=== PATIENT | female | born 1950 | race Caucasian/White ===

== ENCOUNTER 2021-05-21 17:58 | Inpatient (IN) | payer OTHER, SELFPAY ==
--- NOTE | ~2021-05-21 | XR_ITS ---
EXAMINATION: XR chest 1V portable INDICATION: Pneumonia and shortness of breath TECHNIQUE: Portable AP chest at 1448 hours COMPARISON: 05/26/2021 FINDINGS: Cardiomegaly is noted. There is mild diffuse interstitial pattern. No pleural effusion or p neumothorax is identified. There are minimal left basilar airspace opacities. IMPRESSION: 1. Cardiomegaly with mild pulmonary edema. 2. Minimal left basilar airspace opacity, consistent with atelectasis versus pneumonia. Reviewed, dictated and finalized at location F. FABRIC KNITTER IMPRESSION: 1. Cardiomegaly with mild pulmonary edema. 2. Minimal left basilar airspace opacity, consistent with atelectasis versus pn eumonia.
--- NOTE | ~2021-05-21 | CT_ITS ---
EXAMINATION: CT diagnostic chest wo con EXAM DATE: 05/24/2021 10:59 INDICATION: Pneumonia. Cough and shortness of breath. History COPD. TECHNIQUE: Spiral CT of the chest without contrast. Axial, coronal and sagittal images of the chest were reviewed. Coronal maximum intensity pixel images of chest reviewed. The dose-length product ( DLP) for this examination was 892.52 mGy-cm. The exposure was tailored according to patient size (au to mA exposure control), and iterative reconstruction (ASIR) was used as additional dose reduction te chnique. There is no prior study for comparison. FINDINGS: There is moderate emphysema. There is respiratory motion. Basilar subsegmental atelectasis . There is an aberrant right subclavian artery, a congenital variant. There are no pleural or perica rdial effusions. Tracheobronchial tree is patent. There is no mediastinal, hilar or axillary lymp hadenopathy. There is no pneumothorax. Mild cardiomegaly. Lipomatous hypertrophy of the interatri al septum. There is mild coronary arterial calcification, arterial sclerosis. Abdomen is unremarkabl e. There is mild thoracic spondylosis without osteoblastic or osteolytic lesions identified. There is severe bilateral glenohumeral primary osteoarthritis. IMPRESSION: 1. Bibasilar subsegmental atelectasis. 2. Mild cardiomegaly. Lipomatous hypertrophy interatrial septum. 3. Moderate emphysema. Reviewed, dictated and finalized at location . CULTURAL COMMODITIES GRADER
--- NOTE | ~2021-05-21 | US_ITS ---
EXAMINATION: US retroperitoneal comp EXAM DATE: 05/22/2021 11:18 INDICATION: Renal failure. TECHNIQUE: Multiple grayscale and Doppler images of the kidneys were obtained (by a technologist who performed the scan) and subsequently reviewed. There is no prior study for comparison. FINDINGS: Study limited by patient body habitus. There is bilateral renal cortical thinning, atrophy. Right kidney: There is normal contour and echogenicity. It measures 8.8 x 4.7 x 4.7 centimeters. Th ere are no focal renal lesions identified. There is no hydronephrosis. Left kidney: There is normal contour and echogenicity. It measures 9.2 x 3.4 x 4.7 centimeters. The re are no focal renal lesions identified. There is no hydronephrosis. Bladder was nondistended but unremarkable. Incidental hepatic steatosis. IMPRESSION: 1. No hydronephrosis. 2. Bilateral renal cortical thinning. 3. Hepatic steatosis. Reviewed, dictated and finalized at location G. NGED INSTRUMENT TUNER
--- NOTE | ~2021-05-21 | XR_ITS ---
EXAMINATION: XR chest 1V portable DATE: 05/26/2021 15:21 INDICATION: Pneumonia TECHNIQUE: frontal view of the chest was obtained. COMPARISON: Chest radiograph dated 05/21/2021 FINDINGS: Pulmonary vascular congestion without eunice pulmonary edema. Mild bibasilar opacities and favor atele ctasis over pneumonia. No pleural effusion or pneumothorax. Mild cardiomegaly with prominent left par acardial fat pad which partially obscures the left heart border. Advanced osteoarthritis at the bilat eral glenohumeral joints. IMPRESSION: 1. Cardiomegaly with pulmonary vascular congestion but without eunice pulmonary edema. 2. Mild bibasilar opacities and favor atelectasis over pneumonia. Reviewed, dictated and finalized at location A. L GRINDER
--- NOTE | ~2021-05-21 | XR_ITS ---
EXAMINATION: XR chest 1V portable INDICATION: Increased urination TECHNIQUE: Portable AP chest at 2122 hours COMPARISON: None available FINDINGS: There are minimal airspace opacities of the lung bases. No pleural effusion or pneumothorax is identified. Cardiomegaly is noted. There is advanced osteoarthritis of the glenohumeral joints. IMPRESSION: 1. Minimal bibasilar airspace opacity, consistent with atelectasis versus pneumonia. Reviewed, dictated and finalized at location F. UTIVE VP IMPRESSION: 1. Minimal bibasilar airspace opacity, consistent with atelectasis versus pneum onia.
--- NOTE | ~2021-05-21 | MR_ITS ---
EXAMINATION: MR cervical spine wo con EXAM DATE: 05/25/2021 12:27 INDICATION: Unable to raise arms, right greater than left . TECHNIQUE: Multi-sequential, multiplanar MR images of the cervical spine were obtained without contra st. Axial T2, axial T2 MERGE sequence. Sagittal T1, T2, T2 fat saturation images also obtained. Cor relation is made to CT earlier same date. FINDINGS: Study is limited due to patient motion. There is moderate reversal of normal cervical lord osis. There is severe disc disease C3-T1. Cervicomedullary junction is normal in appearance. There is mild to moderate moderate central canal stenosis posterior to the C5 vertebral body, central canal n arrowed to about 6 mm in mid sagittal AP dimension, and a narrowed to about 5-6 mm at the C5-6 level. These are the most narrowed levels. There is no cord edema identified, no evidence of acute cord com pression. Level by level evaluation: Significantly limited from patient motion. Please refer to the CT cervical spine report same date which is suspected to be more accurate with regard to the arthropathy and osiel ral foraminal stenosis. There is a mild to moderate disc bulge at C7-T1 causing mild central canal st enosis, less than at the mid cervical region reported above. IMPRESSION: 1. Moderate mid cervical central canal stenosis, without cord signal change, no acute cord compressi on suspected. 2. Severe cervical spondylosis; please correlate with CT cervical spine report same date. Reviewed, dictated and finalized at location G. ORK MGR IMPRESSION: 1. Moderate mid cervical central canal stenosis, without cord signal change, n o acute cord compression suspected. 2. Severe cervical spondylosis; please correlate with CT cervical spine report same date.
--- NOTE | ~2021-05-21 | CT_ITS ---
EXAMINATION: CT brain wo con, CT cervical spine wo con EXAM DATE: 05/25/2021 09:33 (accession [id number]), 05/25/2021 09:34 (accession [id number]) INDICATION: LT arm weakness . TECHNIQUE: Spiral CT of the head was performed without contrast. Axial, coronal and sagittal images were reviewed. Spiral CT of the cervical spine was performed without contrast. Axial images were rev iewed. Coronal and sagittal reformatted images were also reviewed. The dose-length product (DLP) fo r this examination was 983.67 mGy-cm. The exposure was tailored according to patient size, and itera tive reconstruction (ASIR) was used as additional dose reduction technique. There is no prior study for comparison. FINDINGS: HEAD CT: Old right basal ganglia lacunar infarctions. There is no acute intraparenchymal hemorrhage. No evidence of intraparenchymal brain mass lesion. No evidence of acute infarction. There is modera te periventricular and subcortical hypodensity, nonspecific but probably related to small vessel isch emic disease. There is mild prominence of the sulci and ventricles related to cerebral atrophy. There is no mass effect or midline shift. There is no obstructive hydrocephalus suspected. There are no extra-axial collections. There are no acute calvarial fractures. Left prosthetic globe, right-s ided cataract surgery. Soft tissue is unremarkable. The visualized sinuses and mastoid air cells are well aerated. CERVICAL CT: There is severe disc disease C4-T1, moderate to severe at C3-4. There is moderate revers al of the normal cervical lordosis which may be degenerative, positional or spasm. There is 2 mm ante rolisthesis C3 on C4. Level by level evaluation: C2-C3: Disc does not extend beyond the endplate margin. Uncovertebral joint arthropathy: Mild bilateral. Facet joint arthropathy: Moderate to severe left, mild right. Neural foraminal stenosis: Moderate to severe left, no right. Central canal stenosis: No stenosis. C3-C4: There is a mild diffuse disc bulge. Uncovertebral joint arthropathy: Mild to moderate left, mild right. Facet joint arthropathy: Severe left, moderate right. Neural foraminal stenosis: Severe left, moderate right. Central canal stenosis: Mild. C4-C5: There is a mild diffuse disc bulge. Uncovertebral joint arthropathy: Severe right, moderate left. Facet joint arthropathy: Moderate bilateral. Neural foraminal stenosis: Moderate bilateral. Central canal stenosis: Mild. C5-C6: There is a moderate diffuse disc bulge. Uncovertebral joint arthropathy: Moderate to severe right, mild to moderate left. Facet joint arthropathy: Moderate bilateral. Neural foraminal stenosis: Moderate right, mild to moderate left. Central canal stenosis: Mild to moderate. C6-C7: There is a mild diffuse disc bulge. Uncovertebral joint arthropathy: Moderate bilateral. Facet joint arthropathy: Mild to moderate bilateral. Neural foraminal stenosis: Mild bilateral. Central canal stenosis: Mild. C7-T1: Possibly moderate posterior disc bulge. Uncovertebral joint arthropathy: Moderate to severe bilateral. Facet joint arthropathy: Mild to moderate bilateral. Neural foraminal stenosis: Moderate left, mild to moderate right. Central canal stenosis: Possibly moderate. IMPRESSION: 1. Severe cervical spondylosis. 2. 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 3. Age-related intracranial findings. Reviewed, dictated and finalized at location B. ETICIAN SPA IMPRESSION: 1. Severe cervical spondylosis. 2. 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 3. Age-related intracranial findings.
--- NOTE | ~2021-05-21 | XR_ITS ---
EXAMINATION: XR chest 1V portable INDICATION: Pulmonary edema TECHNIQUE: Portable AP chest at 1427 hours COMPARISON: 05/28/2021 FINDINGS: Cardiomegaly is noted. A mild diffuse interstitial pattern persists without significant diomedes nge. No pleural effusion or pneumothorax is identified. Left basilar airspace opacities persist witho ut significant change. IMPRESSION: 1. Cardiomegaly with mild pulmonary edema, not significantly changed. 2. Stable left basilar airspace opacity, consistent with atelectasis versus pneumonia. Reviewed, dictated and finalized at location F. ICE DELIVERY DIRECTOR IMPRESSION: 1. Cardiomegaly with mild pulmonary edema, not significantly changed. 2. Stable left basilar airspace opacity, consistent with atelectasis versus pne umonia.
--- NOTE | ~2021-05-21 | CT_ITS ---
EXAMINATION: CT abdomen pelvis wo con DATE: 05/21/2021 23:15 INDICATION: Acute renal failure, vaginal bleeding TECHNIQUE: Computed tomography (CT) of the abdomen and pelvis was performed without intravenous contr ast. The dose-length product (DLP) was 1275.47 mGy-cm. Automated exposure control and iterative recon struction technique were employed. COMPARISON: None FINDINGS: Minimal dependent atelectasis is present in the lung bases. The heart size is normal. There is mild emphysema of the visualized lung bases. Lipomatous hypertrophy of the interatrial septum is noted. The liver, spleen, pancreas, and adrenal glands are normal. Stones are present in the nondiste nded gallbladder. There is mild atrophy of the kidneys. A 10 mm cyst is noted in the left kidney. The re is circumferential wall thickening of the urinary bladder. Stranding is noted in the surrounding f at. No stones are identified in the kidneys, ureters, or bladder. There is no hydronephrosis or hydro ureter. No pathologically enlarged abdominal or pelvic lymph nodes are identified. There is no free i ntraperitoneal gas or evidence of bowel obstruction. There is moderate infiltration of the subcutaneo us tissues overlying the left flank and right hip. There is advanced osteoarthritis of the left hip w ith remodeling of the femoral head. There is moderate osteoarthritis of the right hip. Severe lumbar spondylosis is noted. IMPRESSION: 1. Circumferential wall thickening of the urinary bladder with surrounding fat stranding, consistent with cystitis. 2. Cholelithiasis without evidence of cholecystitis. 3. Infiltration of the subcutaneous tissues overlying the left flank and left hip. Correlate for brui sing. Reviewed, dictated and finalized at location F. ITE ADMIN IMPRESSION: 1. Circumferential wall thickening of the urinary bladder with surrounding fat stranding, consistent with cystitis. 2. Cholelithiasis without evidence of cholecystitis. 3. Infiltration of the subcutaneous tissues overlying the left flank and left h ip. Correlate for bruising.
--- NOTE | ~2021-05-21 | US_ITS ---
EXAMINATION: US venous doppler LE EXAM DATE: 05/23/2021 14:53 INDICATION: Bilateral leg pain, edema. TECHNIQUE: Multiple grayscale, color flow and Doppler images of the lower extremity deep venous syste ms bilaterally were obtained and reviewed. There is no prior study for comparison. FINDINGS: RIGHT SIDE Common femoral: -------- Normal. Profunda femoral: ------- Normal. Femoral: Nonocclusive thrombus. Popliteal: Normal. Posterior tibial: --------- Normal. Peroneal: Normal. Gastrocnemius: Not visualized. Soleus: Not visualized. Greater saphenous: ----- Normal. Lesser saphenous: ------ Not visualized. LEFT SIDE Common femoral: -------- Normal. Profunda femoral: ------- Normal. Femoral: Not well visualized. Popliteal: Normal. Posterior tibial: --------- Normal. Peroneal: Normal. Gastrocnemius: Not visualized. Soleus: Not visualized. Greater saphenous: ----- Normal. Lesser saphenous: ------ Not visualized. IMPRESSION: 1. Positive for right femoral nonocclusive DVT. 2. No left DVT. I discussed DVT with 2nd medical floor nurse Felicita at 05/23/2021 15:25 SUPERINTENDENT CIRCUS. Reviewed, dictated and finalized at location G. RINTENDENT CIRCUS
[2021-05-21 18:04] VITALS: BP 134/79; PULSE 95; RESP 21; O2SAT 97
[2021-05-21 19:25] VITALS: BP 144/86; PULSE 96; RESP 19; O2SAT 96
--- NOTE | 2021-05-21 20:19 | ED.GENADULT ---
HPI - General Adult General Chief complaint: Vaginal Bleeding Stated complaint: vag bleeding Time Seen by Provider: 05/21/21 19:53 History of Present Illness HPI narrative: Patient is a 70-year-old female who presents the emergency department with chief complaint of vaginal bleeding. The assisted staff noticed a little bit of blood in her depends when they were changing her and said tried to get an appointment but could not get an appointment for a month with ROCKET [employer]OR TESTER. The patient has no complaints is not on any blood thinners denies trauma. The patient does report that some of the staff members have long fingernails when they are cleaning her, and may have scratched her Related Data Allergies Allergy/AdvReac Type Severity Reaction Status Date / Time Sulfa (Sulfonamide Allergy Swelling Verified 05/21/21 18:22 Antibiotics) Review of Systems Review of Systems: A 10 system review of systems was completed on the patient and is negative except for what is stated in the HPI. Nursing and ancillary documentation was reviewed. Exam Narrative: GENERAL: Well-appearing, well-nourished, and in no acute distress. HEAD: Normocephalic, atraumatic. EYES: PERRLA and EOMI. ENT: Nares clear, no rhinorrhea or epistaxis. Mucous membranes moist. NECK: Supple. CHEST: Clear to auscultation. No respiratory distress. HEART: Regular rate and rhythm. No murmur heard. Normal peripheral pulses. ABDOMEN: Soft, nontender, nondistended, normal active bowel sounds. : There is a slight abrasion present at the 12 o'clock position of the vaginal opening EXTREMITIES: Normal range of motion. No edema. SKIN: Warm, dry, no rash. NEURO: No focal deficits. Alert and oriented x3. PSYCH: Normal mood and affect. Course Vital Signs Vital signs: Vital Signs Pulse Rate 95 05/21/21 18:04 Respiratory Rate 21 H 05/21/21 18:04 Blood Pressure 134/79 05/21/21 18:04 Pulse Oximetry 97 05/21/21 18:04 Pulse Rate 96 05/21/21 19:25 Respiratory Rate 19 05/21/21 19:25 Blood Pressure 144/86 H 05/21/21 19:25 Pulse Oximetry 96 05/21/21 19:25 Medical Decision Making Vital Signs Vital Signs: Vital Signs Pulse Rate 95 05/21/21 18:04 Respiratory Rate 21 H 05/21/21 18:04 Blood Pressure 134/79 05/21/21 18:04 Pulse Oximetry 97 05/21/21 18:04 Pulse Rate 96 05/21/21 19:25 Respiratory Rate 19 05/21/21 19:25 Blood Pressure 144/86 H 05/21/21 19:25 Pulse Oximetry 96 05/21/21 19:25 Discharge Plan Discharge Clinical Impression: Abrasion of vagina Qualifiers: Encounter type: initial encounter Qualified Code(s): S30.814A - Abrasion of vagina and vulva, initial encounter [facility] Condition: Stable Instructions: Antibiotic Form, Vaginal Atrophy (ED), Abrasion (ED) Follow-up/Referrals: Austindu,MD Randall [Primary Care Provider] - Royce Quach MD [Physician] - Time of Disposition: 20:24
[2021-05-21 20:50] LABS: Hematocrit 40.3 % (37.0-47.0); Hemoglobin 12.4 g/dL (12.0-15.0); Mean Corpuscular HGB Conc 30.8 g/dl (32-36); Mean Corpuscular Hemoglobin 28.8 pg (26-34); Mean Corpuscular Volume 93.7 fl (80-100); Mean Platelet Volume 10.1 fl (7.4-10.4); Platelet Count Result 250 k/mm3 (150-375); Red Cell Distribution Width 15.4 % (11.5-14.5); White Blood Count 21.2 K/mm3 (4.5-10.0)
[2021-05-21 21:00] LABS: INR 1.2
[2021-05-21 21:01] LABS: Partial Thromboplastin Time 25.2 SECONDS (22.3-36.8)
[2021-05-21 21:08] LABS: Band Neutrophils Percent 4 % (0-6); Eosinophils Absolute Manual 0.42 K/mm3 (0.02-0.5); Eosinophils Percent Manual 2 % (0-4); Lymphocytes Absolute Manual 3.18 K/mm3 (1.1-4.5); Monocytes Absolute Manual 0.63 K/mm3 (0.1-0.90); Monocytes Percent Manual 3 % (3-9); Neutrophils Absolute Manual 16.96 K/mm3 (1.7-7.2); Neutrophils Percent Manual 76 % (46-73); Platelet Estimate Adequate (Adequate); Total Cells Counted 100
[2021-05-21 21:09] LABS: Anisocytosis 2+ (NORMAL); Hypochromasia 1+ (NORMAL)
[2021-05-21 21:13] VITALS: BP 139/77; PULSE 95; RESP 17; O2SAT 98
[2021-05-21 21:24] LABS: Alanine Aminotransferase 27 U/L (4-35); Alkaline Phosphatase 156 U/L (38-126); Anion Gap 12 mmol/L (8-16); Aspartate Amino Transferase 28 U/L (14-36); Bilirubin,Total 0.5 mg/dL (0.2-1.3); Blood Urea Nitrogen 56 mg/dL (7-17); Calcium 10.3 mg/dL (8.4-10.2); Carbon Dioxide 19 mmol/L (22-30); Chloride 105 mmol/L (98-107); Estimated Glomerular Filt Rate 11; Glucose 178 mg/dL (65-110); Potassium 3.3 mmol/L (3.4-5.0); Sodium 136 mmol/L (137-145)
[2021-05-21 22:17] LABS: Add Urine Microscopic? YES; Appearance Urine Turbid (Clear); Bacteria Urine 3+ /hpf; Bilirubin Urine Negative (Negative); Blood Urine 3+ (Negative); Color Urine Yellow (Yellow); Glucose Urine UA Negative (Negative); Ketones Urine Negative (Negative); Leukocyte Esterase Ur 2+ LEU/UL (Negative); Nitrate Urine Negative (Negative); Protein Urine 2+ mg/dL (Negative); RBC Urine >75 /hpf (0-2); Specific Grav Ur 1.011 (1.001-1.035); Urobilinogen Urine Negative mg/dL (<2.0); WBC Urine >75 /hpf
[2021-05-22] VITALS (10 sets, daily range): BP systolic 122–138; BP diastolic 52–74; PULSE 87–96; RESP 17–22; TEMP 36.1–36.6; O2SAT 92–99; BMI 46.7
[2021-05-22] MEDS: SODIUM CHLORIDE 0.9% IV 1,000 ML 999 ML IV CONT (00:29)
[2021-05-22] MEDS: MORPHINE SULFATE (*CRX) 4 MG/ML INJ IV PUSH (00:30)
--- NOTE | 2021-05-22 02:35 | ADMGEN ---
This patient, Fay Dean, was admitted to Medical Room 247-01. Patient/family oriented to hospital policies and general routines including ID bracelet, bed and alarms, visiting hours, pain management, procedures, bathroom and other care routines, personal items, smoking policy, room service/diet, and visiting hours. Information on how to activate the Rapid Response Team has been discussed. Patient/Family are encouraged to report perceived risks to care and to ask questions if they do not understand what they are told or what they should do.
[2021-05-22] MEDS: SODIUM CHLORIDE 0.9% IV 1,000 ML 125 ML IV CONT ×2 (04:14→14:23)
[2021-05-22 06:06] LABS: Basophils Absolute Auto 0.1 K/mm3 (0.0-0.1); Basophils Percent Auto 0.6 % (0.2-1.2); Eosinophils Absolute Auto 0.7 K/mm3 (0-0.3); Eosinophils Percent Auto 4.2 % (0-4.4); Hematocrit 38.4 % (37.0-47.0); Hemoglobin 11.6 g/dL (12.0-15.0); Immature Granulocyte Absolute 0.31 K/mm3 (0.00-0.031); Immature Granulocyte Percent A 1.8 % (0-0.5); Lymphocytes Absolute Auto 2.09 K/mm3 (0.9-3.2); Lymphocytes Percent Auto 12.4 % (18.3-44.2); Mean Corpuscular HGB Conc 30.2 g/dl (32-36); Mean Corpuscular Hemoglobin 28.6 pg (26-34); Mean Corpuscular Volume 94.6 fl (80-100); Monocytes Absolute Auto 1.2 K/mm3 (0.1-0.6); Monocytes Percent Auto 7.1 % (2.6-8.5); Neutrophils Absolute Auto 12.4 K/mm3 (1.3-6.7); Neutrophils Percent Auto 73.9 % (45.5-73.1); Platelet Count Result 208 k/mm3 (150-375); Red Blood Count 4.06 M/mm3 (4.2-5.4); Red Cell Distribution Width 15.2 % (11.5-14.5); White Blood Count 16.8 K/mm3 (4.5-10.0)
[2021-05-22 06:13] LABS: Anion Gap 10 mmol/L (8-16); Blood Urea Nitrogen 52 mg/dL (7-17); Calcium 9.6 mg/dL (8.4-10.2); Carbon Dioxide 21 mmol/L (22-30); Chloride 106 mmol/L (98-107); Estimated Glomerular Filt Rate 11; Glucose 157 mg/dL (65-110); Phosphorus 5.1 mg/dL (2.5-4.5); Sodium 137 mmol/L (137-145)
[2021-05-22 06:26] LABS: Hemoglobin A1C 7.4 % (<5.7)
--- NOTE | 2021-05-22 08:49 | PM.IMHP ---
H&P: HPI History of Present Illness Date/Time: 05/22/21 08:49 Chief Complaint: 1. Generalized weakness 2. Vaginal abrasion Narrative: 70 years [facility] was admitted through the emergency room with complaints of having generalized weakness going on for the last few days. Patient also complained having vaginal abrasion that was also noticed by the nursing staff. Having occasional bleeding from vaginal abrasion. However in the emergency room patient was found to have acute renal insufficiency. Also found to have urinary tract infection. Patient was found to have low potassium and slightly elevated glucose. On questioning patient patient was not aware of any of such issues. Patient was admitted for further evaluation treatment. Patient was given IV antibiotics and urine culture was sent. Patient however denies any shortness of breath or chest pain. Patient denies any nausea vomiting abdominal pain. No fever or chills as per patient. Review of Systems Review of Systems: All systems reviewed & are unremarkable except as noted in HPI and below (the history and physical examination.) [facility] Past Medical History Medical History (Updated 05/22/21 @ 08:58 by Marcos Apodaca MD) Gout Hypothyroid Family History Family History Father Dementia Mother Alcohol abuse Social History Social History Years smoked: 50 Smoking status: Former smoker Alcohol intake: never Substance use: never Substance use type: does not use Spiritual care concerns: No Meds Home Medications and Allergies Home Medications Medication Instructions Recorded Confirmed Type acetaminophen 650 mg PO Q4H PRN 05/22/21 05/22/21 History acetaminophen-codeine 1 tablet PO TID PRN 05/22/21 05/22/21 History allopurinol 100 mg PO DAILY 05/22/21 05/22/21 History artificial tears solution 1 drp OPHTHALMIC (EYE) TID PRN 05/22/21 05/22/21 History baclofen 5 mg PO BID 05/22/21 05/22/21 History calcitriol 0.25 mcg PO DAILY 05/22/21 05/22/21 History cetirizine [Zyrtec] 10 mg PO DAILY 05/22/21 05/22/21 History cholecalciferol (vitamin D3) 50,000 unit PO WEEKLY 05/22/21 05/22/21 History diphenhydramine HCl 25 mg PO TID PRN 05/22/21 05/22/21 History duloxetine 30 mg PO DAILY 05/22/21 05/22/21 History fluticasone propion-salmeterol 1 inh INHALATION BID 05/22/21 05/22/21 History furosemide 20 mg PO DAILY 05/22/21 05/22/21 History guaifenesin [Mucinex] 600 mg PO BID 05/22/21 05/22/21 History hydroxyzine HCl 25 mg PO BID PRN 05/22/21 05/22/21 History ipratropium-albuterol 3 ml INHALATION Q6H 05/22/21 05/22/21 History levothyroxine 150 mcg PO DAILY 05/22/21 05/22/21 History multivitamin [Daily Multivitamin] 1 tablet PO DAILY 05/22/21 05/22/21 History nystatin [Nystop] 1 applic TOPICAL DAILY PRN 05/22/21 05/22/21 History umeclidinium [Incruse Ellipta] 1 inh INHALATION DAILY 05/22/21 05/22/21 History Allergies Allergy/AdvReac Type Severity Reaction Status Date / Time Sulfa (Sulfonamide Allergy Swelling Verified 05/21/21 18:22 Antibiotics) Vital Signs Vital Signs - 24 hr 05/21/21 18:04 05/21/21 19:25 05/21/21 21:13 Temperature Pulse Rate 95 96 95 Respiratory Rate 21 H 19 17 Blood Pressure 134/79 144/86 H 139/77 Pulse Oximetry 97 96 98 05/22/21 00:32 05/22/21 02:37 05/22/21 03:30 Temperature 36.6 C Pulse Rate 95 96 Respiratory Rate 22 H 18 Blood Pressure 122/52 L 138/74 Pulse Oximetry 98 97 97 05/22/21 03:53 Temperature 36.1 C L Pulse Rate 96 Respiratory Rate 20 Blood Pressure 133/74 Pulse Oximetry 92 Exam Narrative: GENERAL: Well-appearing, well-nourished, and in no acute distress. HEAD: Normocephalic, atraumatic. EYES: PERRLA and EOMI. ENT: Nares clear, no rhinorrhea or epistaxis. Mucous membranes moist. NECK: Supple. CHEST: Clear to auscultation. No respiratory distress. HEART: Regular rate and r
[2021-05-22 09:24] LABS: Glucose Point of Care 131 mg/dl (65-105)
--- NOTE | 2021-05-22 09:32 | PM.CNNEP ---
Assessment and Plan Assessment and plan (1) Abnormal results of kidney function studies: Code(s): R94.4 - Abnormal results of kidney function studies Status: Acute Assessment and Plan: The patient has an elevated creatinine. She had renal failure in 2007. Since then she has been seeing Dr. Ron but she can not remember what her kidney function is. Two years ago she entered the senior living and his only seen him once in that amount of time. It is unclear if this is acute or chronic renal insufficiency or possibly acute on chronic. She might be dehydrated from her Lasix. She might have a reaction to the allopurinol. However she does not have a rash or peripheral eosinophilia. Obstruction is always an option , especially with the bleeding as there may be 1 process causing both. Will get a renal ultrasound. nothing showed up on her CT scan except atrophy of the kidneys. she has a bladder infection as well which can always affect the kidneys if bad enough, but she does not look toxic. Urine culture has been sent and she is on antibiotics. Rhabdomyolysis is always a possibility. Will check a CPK. Other causes such as glomerulonephritis are unlikely in this clinical scenario. will check A renal ultrasound, CPK, urine electrolytes. (2) Anemia: Code(s): D64.9 - Anemia, unspecified Status: Acute Assessment and Plan: the patient has mild anemia. Hemoglobin was normal yesterday but fell a little bit today with hydration. The patient does have some blood in her depends. It is unclear whether this is vaginal bleeding or bleeding from an abrasion it was mentioned in the ER note. Hospitalist to evaluate this. (3) Hypokalemia: Code(s): E87.6 - Hypokalemia Status: Acute Assessment and Plan: Potassium is low, probably from the diuretics. She received some potassium. She is off the diuretics. (4) Acute UTI: Code(s): N39.0 - Urinary tract infection, site not specified Status: Acute Assessment and Plan: Cultures have been sent and she is on antibiotics (5) Gout: Code(s): M10.9 - Gout, unspecified Status: Acute Assessment and Plan: she is on allopurinol. No symptoms currently. (6) Hypothyroid: Code(s): E03.9 - Hypothyroidism, unspecified Status: Acute Assessment and Plan: She is on supplements. History of Present Illness Reason for Consult Consult date: 05/22/21 Chief Complaint Chief complaint: UTI, acute kidney injury, dehydration, leukocytosi History of Present Illness Narrative: Fay is a very pleasant 70-year-old lady who has multiple medical problems including obesity, decrease strength in the lower extremities, hypertension, history of renal failure acutely back in 2007 and has [address] Longo since then for chronic kidney disease but she does not know how bad her kidneys are, hypothyroidism, reversible airways disease, chronic edema, depression, renal osteodystrophy, gout. The patient says that for the last couple of weeks she has had smears of blood on her depends. She made an appointment with a aircraft layout worker but has not gotten in yet. Yesterday the patient had more blood in her depends and so her caretakers at the senior living decided to send her to the emergency room. She has not had any abdominal pain. No weight loss. She is pretty sure it is coming from the vagina and not her rectum. She denies any other bleeding or bruising. She is not on blood thinners. Patient has no non she or vomiting. No chest pain or shortness of breath. Review of Systems Constitutional: Constitutional: Reports no additional constitutional complaints Eyes: Eyes: Reports no additional eye complaints ENT: Reports system reviewed and no additional complaints, except as documented Cardiovascular: Cardiovascular: Reports no additional cardiovascular complaints Respiratory: Respirator
[2021-05-22 10:26] LABS: Creatine Kinase 40 U/L (30-135)
[2021-05-22] MEDS: DULoxetine HCL 30 MG CAPSULE.DR PO (10:48)
[2021-05-22] MEDS: guaiFENesin 12 HR 600 MG TABCR PO ×2 (10:48→20:16)
[2021-05-22] MEDS: calcitrioL 0.25 MCG CAPSULE PO (10:48)
[2021-05-22] MEDS: allopurinoL 100 MG TABLET PO (10:49)
[2021-05-22] MEDS: BACLOFEN 5 MG TABLET PO ×2 (10:49→16:36)
[2021-05-22] MEDS: MULTIVITAMINS THERAPEUTIC TAB (*BKC) 1 TABLET PO (10:49)
[2021-05-22] MEDS: HEPARIN SODIUM 5,000 UNITS/ML VIAL 5000 UNITS SUB-Q ×2 (10:51→20:16)
[2021-05-22 11:19] LABS: Glucose Point of Care 171 mg/dl (65-105)
[2021-05-22] MEDS: POTASSIUM CHLORIDE 20 MEQ TABLET 40 MEQ PO (11:46)
[2021-05-22] MEDS: ACETAMINOPHEN/CODEINE (*CRX) 300/30 MG TABLET 1 TAB PO (11:48)
[2021-05-22 12:35] LABS: Creatinine Urine 58.9 mg/dL; Total Protein Urine Random 145 mg/dL; Ur Ttl Prot Creatinine Ratio 2.46 mg/mg (0-0.20)
[2021-05-22 13:14] LABS: Sodium Urine Random 67 meq/L
[2021-05-22 16:22] LABS: Glucose Point of Care 173 mg/dl (65-105)
[2021-05-22] MEDS: IPRATROPIUM BR 0.02% INH SOLN 0.5 MG/2.5 ML VIAL INHALATION (19:42)
[2021-05-22] MEDS: ALBUTEROL SULFATE NEB 2.5 MG/0.5 ML INH INHALATION (19:42)
[2021-05-22] MEDS: FLUTICASONE/SALMETEROL 115-21 MCG INHALER 1 PUFF 2 PUFF INHALATION (19:46)
[2021-05-22 21:44] LABS: Glucose Point of Care 168 mg/dl (65-105)
[2021-05-23] VITALS (11 sets, daily range): BP systolic 100–127; BP diastolic 50–67; PULSE 87–108; RESP 16–20; TEMP 36.4–37.1; O2SAT 92–99
[2021-05-23] MEDS: SODIUM CHLORIDE 0.9% IV 1,000 ML 125 ML IV CONT ×2 (00:55→08:47)
[2021-05-23] MEDS: ALBUTEROL SULFATE NEB 2.5 MG/0.5 ML INH INHALATION ×4 (01:31→19:47)
[2021-05-23] MEDS: IPRATROPIUM BR 0.02% INH SOLN 0.5 MG/2.5 ML VIAL INHALATION ×4 (01:31→19:47)
[2021-05-23 05:28] LABS: Hematocrit 43.7 % (37.0-47.0); Hemoglobin 13.1 g/dL (12.0-15.0); Mean Corpuscular Hemoglobin 28.8 pg (26-34); Mean Platelet Volume 10.5 fl (7.4-10.4); Platelet Count Result 212 k/mm3 (150-375); Red Blood Count 4.55 M/mm3 (4.2-5.4); Red Cell Distribution Width 15.6 % (11.5-14.5); White Blood Count 17.1 K/mm3 (4.5-10.0)
[2021-05-23] MEDS: LEVOTHYROXINE SODIUM 150 MCG TABLET PO (05:36)
[2021-05-23 05:48] LABS: Alanine Aminotransferase 25 U/L (4-35); Albumin Level 3.8 g/dL (3.5-5.1); Alkaline Phosphatase 151 U/L (38-126); Anion Gap 13 mmol/L (8-16); Aspartate Amino Transferase 25 U/L (14-36); Bilirubin,Total 0.4 mg/dL (0.2-1.3); Blood Urea Nitrogen 51 mg/dL (7-17); Calcium 9.4 mg/dL (8.4-10.2); Carbon Dioxide 19 mmol/L (22-30); Chloride 108 mmol/L (98-107); Estimated Glomerular Filt Rate 12; Glucose 168 mg/dL (65-110); Phosphorus 4.5 mg/dL (2.5-4.5); Potassium 3.5 mmol/L (3.4-5.0); Sodium 140 mmol/L (137-145)
[2021-05-23 07:52] LABS: Glucose Point of Care 156 mg/dl (65-105)
[2021-05-23] MEDS: MULTIVITAMINS THERAPEUTIC TAB (*BKC) 1 TABLET PO (08:27)
[2021-05-23] MEDS: allopurinoL 100 MG TABLET PO (08:27)
[2021-05-23] MEDS: calcitrioL 0.25 MCG CAPSULE PO (08:28)
[2021-05-23] MEDS: DULoxetine HCL 30 MG CAPSULE.DR PO (08:28)
[2021-05-23] MEDS: BACLOFEN 5 MG TABLET PO ×2 (08:28→17:35)
[2021-05-23] MEDS: LORATADINE 10 MG TABLET PO (08:28)
[2021-05-23] MEDS: guaiFENesin 12 HR 600 MG TABCR PO ×2 (08:32→20:25)
--- NOTE | 2021-05-23 08:45 | PM.PNNEP ---
Progress Note: A&P Assessment and Plan (1) Abnormal results of kidney function studies: Code(s): R94.4 - Abnormal results of kidney function studies Status: Acute Assessment and Plan: The patient has an elevated creatinine. She had renal failure in 2007. Since then she has been seeing Dr. Ron but she can not remember what her kidney function is. [facility] his only seen him once in that amount of time. asking for labs from the [facility]. renal ultrasound shows smallish kidneys urine electrolytes are non pre renal total CK is normal creatinine is mildly better down to 3.8. It is unclear if this is acute or chronic renal insufficiency or possibly acute on chronic. considerations include dehydration from her Lasix, or chronic progression of her renal disease. Will decrease IV fluids. Diuretics continue to be on hold. She is getting antibiotics for her UTI. (2) Anemia: Code(s): D64.9 - Anemia, unspecified Status: Acute Assessment and Plan: Hemoglobin is back up to normal. Evaluation of a vaginal bleeding per hospitalist. (3) Hypokalemia: Code(s): E87.6 - Hypokalemia Status: Acute Assessment and Plan: Resolved (4) Acute UTI: Code(s): N39.0 - Urinary tract infection, site not specified Status: Acute Assessment and Plan: Cultures have been sent and she is on antibiotics (5) Gout: Code(s): M10.9 - Gout, unspecified Status: Acute Assessment and Plan: she is on allopurinol. No symptoms currently. (6) Hypothyroid: Code(s): E03.9 - Hypothyroidism, unspecified Status: Acute Assessment and Plan: She is on supplements. Subjective Date/time seen: 05/23/21 08:45 Interval history: Fay is feeling about the same today. No chest pain or shortness of breath Review of Systems Cardiovascular: Cardiovascular: Reports no additional cardiovascular complaints Respiratory: Respiratory: Reports no additional respiratory complaints Gastrointestinal: Gastrointestinal: Reports no additional gastrointestinal complaints Genitourinary: Genitourinary: Reports no additional female genitourinary complaints Exam Narrative: WDWN in NAD skin no rash head ncat lungs clear cor reg no rub abd BS+ nontender and soft ext 1+ edema. Objective Data Vital Signs Vital Signs: Vital Signs - 24 hr 05/22/21 15:10 05/22/21 19:18 05/22/21 19:47 Temperature 36.1 C L 36.6 C Pulse Rate 91 87 88 Respiratory Rate 20 17 17 Blood Pressure 134/67 126/69 Pulse Oximetry 95 95 05/22/21 19:49 05/22/21 19:56 05/23/21 01:31 Temperature Pulse Rate 90 93 89 Respiratory Rate 18 20 16 Blood Pressure Pulse Oximetry 99 05/23/21 01:37 05/23/21 03:33 Temperature 36.4 C L Pulse Rate 90 96 Respiratory Rate 19 20 Blood Pressure 116/50 L Pulse Oximetry 97 Intake/Output Intake/Output: Intake & Output 05/20/21 05/21/21 05/22/21 05/23/21 23:59 23:59 23:59 23:59 Intake Total 3130 1100 Output Total 50 Balance 3080 1100 Meds/Results Medications: Active Medications Generic Name Dose Route Start Last Admin Trade Name Freq PRN Reason Stop Dose Admin Acetaminophen 650 mg 05/22/21 08:43 Acetaminophen 325 Mg Tablet PO Q4H PRN Pain (Scale Score 1-3) Acetaminophen/Codeine Phosphate 1 tab 05/22/21 11:15 05/22/21 11:48 Acetaminophen/Codeine (*Crx) 300/30 Mg Tablet PO 1 tab TID PRN Administration Pain (Scale Score 4-6) Albuterol 2.5 mg 05/22/21 14:00 05/23/21 01:31 Albuterol Sulfate Neb 2.5 Mg/0.5 Ml Inh INHALATION 2.5 mg Q6HRT MARIBELL Administration Allopurinol 100 mg 05/22/21 09:00 05/22/21 10:49 Allopurinol 100 Mg Tablet PO 100 mg DAILY MARIBELL Administration Artificial Tears 1 drop 05/22/21 09:11 Artificial Tears Ophth Soln 15 Ml Bottle EACH EYE TID PRN Dry
[2021-05-23] MEDS: HEPARIN SODIUM 5,000 UNITS/ML VIAL 5000 UNITS SUB-Q (08:47)
[2021-05-23 11:42] LABS: Glucose Point of Care 202 mg/dl (65-105)
--- NOTE | 2021-05-23 11:51 | PM.IMPN ---
Progress Note: A&P Assessment and Plan (1) Acute UTI: Code(s): N39.0 - Urinary tract infection, site not specified Status: Acute Assessment and Plan: -IV Rocephin #2 -Urine culture positive for E. Coli, sensitivity report pending (2) Acute kidney injury: Code(s): N17.9 - Acute kidney failure, unspecified Status: Acute Assessment and Plan: -4.1 on arrival, no prior for comparison -Pt apparently had renal failure in 2007, sees Dr. Ron but does not know what her baseline kidney function is -Nephrology consult. Unclear if this is chronic or acute on chronic -IVF decreased per nephrology -Diuretics held -Urine electrolytes are non pre renal, renal ultrasound shows small maira kidneys, total CK WNL -Creat mildly improved 3.8 (3) Pneumonia: Code(s): J18.9 - Pneumonia, unspecified organism Status: Acute Assessment and Plan: -pt w/ hx of COPD, reports dry cough -CXR w/ atelectasis vs pneumonia -wheezing on exam -will cover for pneumonia by adding azithromycin to the rocephin she is already on for UTI (4) Leukocytosis: Qualifiers: Leukocytosis type: unspecified Qualified Code(s): D72.829 - Elevated white blood cell count, unspecified Code(s): D72.829 - Elevated white blood cell count, unspecified Status: Acute Assessment and Plan: -on IV rocephin #2 and IV azithromycin #1 -likely due to UTI and pneumonia -blood cultures pending -continue monitoring closely -no fevers (5) Hypokalemia: Code(s): E87.6 - Hypokalemia Status: Acute Assessment and Plan: -Replace and monitor as needed (6) Elevated blood sugar: Code(s): R73.9 - Hyperglycemia, unspecified Status: Acute Assessment and Plan: -Sliding scale insulin and hypoglycemic protocol (7) Chronic edema: Code(s): R60.9 - Edema, unspecified Status: Acute Assessment and Plan: -2+ pitting edema BLE -chronic but patient does have some calf tenderness R>L, will check venous dopplers (8) Abrasion of vagina: Qualifiers: Encounter type: initial encounter Qualified Code(s): S30.814A - Abrasion of vagina and vulva, initial encounter Code(s): S30.814A - Abrasion of vagina and vulva, initial encounter Status: Acute Assessment and Plan: -Unable to visualize on exam due to body habitus -no blood noted in depends on exam -will have wound care evaluate further -pt does not have an OBGYN currently so will need one at discharge Subjective Date/time seen: 05/23/21 11:51 Interval history: 70 yo female bed bound senior care resident w/ hx of morbid obesity, HTN, CKD, hypothyroid, chronic edema, depression, and gout, admitted to the hospital for UTI and JESSICA. Today patient reports fatigue and increased urinary frequency. No dysuria. Admits to wheezing and dry cough. On 3L NC which is her baseline. No cp or sob. Review of Systems Review of Systems: General: Denies fevers, +fatigue Eyes: Denies vision changes ENT: Denies nasal congestion or sore throat Respiratory: + dry cough, denies shortness of breath Cardiovascular: Denies chest pain, + lower extremity edema Gastrointestinal: Denies abdominal pain, vomiting, or diarrhea Genitourinary: Denies dysuria, +increased urinary frequency Musculoskeletal: + back pain Neurological: Denies headache, +chronic motor weakness Integumentary: +chronic pruritis Exam Narrative: General: No acute distress, chronically ill appearing, morbidly obese, disheveled appearance Eyes: PERRL, no scleral icterus HEENT: NCAT, external ears normal, MMM Respiratory: No respiratory distress, expiratory wheezing Cardiovascular: RRR, no murmur Abdominal: Soft, nontender, non distended, no rebound or guarding Musculoskeletal: 2+ pitting edema BLE, L calf moderate ttp, chronic skin changes Neurological: A/Ox3, spe
[2021-05-23] MEDS: diphenhydrAMINE HCl CAP 25 MG CAPSULE PO ×2 (12:53→20:24)
[2021-05-23] MEDS: FLUTICASONE/SALMETEROL 115-21 MCG INHALER 1 PUFF 2 PUFF INHALATION ×2 (14:14→19:50)
[2021-05-23] MEDS: ENOXAPARIN 120 MG/0.8 ML SYRINGE 105 MG SUB-Q (18:12)
[2021-05-23] MEDS: ACETAMINOPHEN/CODEINE (*CRX) 300/30 MG TABLET 1 TAB PO (20:24)
[2021-05-23] MEDS: SODIUM CHLORIDE 0.9% IV 1,000 ML 75 ML IV CONT (23:03)
[2021-05-23 23:23] LABS: Glucose Point of Care 159 mg/dl (65-105)
[2021-05-24] VITALS (13 sets, daily range): BP systolic 108–117; BP diastolic 59–63; PULSE 85–105; RESP 16–20; TEMP 36.4–36.8; O2SAT 93–98
[2021-05-24] MEDS: IPRATROPIUM BR 0.02% INH SOLN 0.5 MG/2.5 ML VIAL INHALATION ×4 (02:37→20:19)
[2021-05-24] MEDS: ALBUTEROL SULFATE NEB 2.5 MG/0.5 ML INH INHALATION ×4 (02:37→20:19)
[2021-05-24] MEDS: LEVOTHYROXINE SODIUM 150 MCG TABLET PO (05:33)
[2021-05-24 05:34] LABS: Basophils Absolute Auto 0.1 K/mm3 (0.0-0.1); Basophils Percent Auto 0.4 % (0.2-1.2); Eosinophils Absolute Auto 1.3 K/mm3 (0-0.3); Eosinophils Percent Auto 5.8 % (0-4.4); Hematocrit 43.3 % (37.0-47.0); Hemoglobin 13.1 g/dL (12.0-15.0); Immature Granulocyte Absolute 0.74 K/mm3 (0.00-0.031); Immature Granulocyte Percent A 3.2 % (0-0.5); Lymphocytes Absolute Auto 1.49 K/mm3 (0.9-3.2); Lymphocytes Percent Auto 6.4 % (18.3-44.2); Mean Corpuscular HGB Conc 30.3 g/dl (32-36); Mean Corpuscular Hemoglobin 28.9 pg (26-34); Mean Corpuscular Volume 95.6 fl (80-100); Mean Platelet Volume 10.6 fl (7.4-10.4); Monocytes Absolute Auto 1.1 K/mm3 (0.1-0.6); Monocytes Percent Auto 4.9 % (2.6-8.5); Neutrophils Absolute Auto 18.3 K/mm3 (1.3-6.7); Neutrophils Percent Auto 79.3 % (45.5-73.1); Platelet Count Result 230 k/mm3 (150-375); Red Blood Count 4.53 M/mm3 (4.2-5.4); Red Cell Distribution Width 15.9 % (11.5-14.5); White Blood Count 23.2 K/mm3 (4.5-10.0)
[2021-05-24 05:52] LABS: Alanine Aminotransferase 25 U/L (4-35); Albumin Level 3.3 g/dL (3.5-5.1); Alkaline Phosphatase 120 U/L (38-126); Anion Gap 12 mmol/L (8-16); Aspartate Amino Transferase 29 U/L (14-36); Bilirubin,Total 0.5 mg/dL (0.2-1.3); Blood Urea Nitrogen 46 mg/dL (7-17); Calcium 8.8 mg/dL (8.4-10.2); Carbon Dioxide 16 mmol/L (22-30); Chloride 110 mmol/L (98-107); Estimated Glomerular Filt Rate 12; Glucose 161 mg/dL (65-110); Potassium 3.6 mmol/L (3.4-5.0); Sodium 138 mmol/L (137-145)
[2021-05-24 07:30] LABS: Albumin Level 3.3 g/dL (3.5-5.1); Anion Gap 13 mmol/L (8-16); Blood Urea Nitrogen 46 mg/dL (7-17); Calcium 8.9 mg/dL (8.4-10.2); Carbon Dioxide 14 mmol/L (22-30); Chloride 111 mmol/L (98-107); Estimated Glomerular Filt Rate 12; Glucose 162 mg/dL (65-110); Phosphorus 4.1 mg/dL (2.5-4.5); Potassium 3.6 mmol/L (3.4-5.0); Sodium 138 mmol/L (137-145)
[2021-05-24 08:17] LABS: Glucose Point of Care 134 mg/dl (65-105)
[2021-05-24] MEDS: diphenhydrAMINE HCl CAP 25 MG CAPSULE PO (08:18)
[2021-05-24] MEDS: allopurinoL 100 MG TABLET PO (08:19)
[2021-05-24] MEDS: calcitrioL 0.25 MCG CAPSULE PO (08:19)
[2021-05-24] MEDS: BACLOFEN 5 MG TABLET PO ×2 (08:19→17:33)
[2021-05-24] MEDS: DULoxetine HCL 30 MG CAPSULE.DR PO (08:19)
[2021-05-24] MEDS: guaiFENesin 12 HR 600 MG TABCR PO ×2 (08:19→20:50)
[2021-05-24] MEDS: MULTIVITAMINS THERAPEUTIC TAB (*BKC) 1 TABLET PO (08:19)
[2021-05-24] MEDS: LORATADINE 10 MG TABLET PO (08:19)
[2021-05-24] MEDS: FLUTICASONE/SALMETEROL 115-21 MCG INHALER 1 PUFF 2 PUFF INHALATION ×2 (09:47→20:21)
[2021-05-24] MEDS: ACETAMINOPHEN/CODEINE (*CRX) 300/30 MG TABLET 1 TAB PO (10:38)
[2021-05-24 11:49] LABS: Glucose Point of Care 201 mg/dl (65-105)
[2021-05-24] MEDS: INSULIN ASPART (*BKC) 100 UNITS/ML SUB-Q (11:51)
--- NOTE | 2021-05-24 13:49 | PM.IMPN ---
Progress Note: A&P Assessment and Plan (1) Acute UTI: Code(s): N39.0 - Urinary tract infection, site not specified Status: Acute Assessment and Plan: -IV Rocephin #3 -Urine culture positive for E. Coli, sensitive to rocephin -Blood cultures pending (2) Acute kidney injury: Code(s): N17.9 - Acute kidney failure, unspecified Status: Acute Assessment and Plan: -4.1 on arrival, no prior for comparison -Pt apparently had renal failure in 2007, sees Dr. Ron but does not know what her baseline kidney function is -Nephrology consult. Unclear if this is chronic or acute on chronic -IVF decreased per nephrology -Diuretics held -Urine electrolytes are non pre renal, renal ultrasound shows small maira kidneys, total CK WNL -Creat mildly improved 3.7 (3) Pneumonia: Code(s): J18.9 - Pneumonia, unspecified organism Status: Acute Assessment and Plan: -pt w/ hx of COPD, reports dry cough -CXR w/ atelectasis vs pneumonia -wheezing on exam -will cover for pneumonia by adding azithromycin #2 to the rocephin she is already on for UTI (4) Leukocytosis: Qualifiers: Leukocytosis type: unspecified Qualified Code(s): D72.829 - Elevated white blood cell count, unspecified Code(s): D72.829 - Elevated white blood cell count, unspecified Status: Acute Assessment and Plan: -on IV rocephin #3 and IV azithromycin #2 -likely due to UTI and pneumonia -blood cultures pending, NGTD -continue monitoring closely -no fevers (5) DVT (deep venous thrombosis): Code(s): I82.409 - Acute embolism and thrombosis of unspecified deep veins of unspecified lower extremity Status: Acute Assessment and Plan: -venous doppler positive for R femoral nonocclusive DVT -spoke w/ pharmacist, due to JESSICA patient was started on Lovenox 1 mg/kg q 24 hours. If kidney function improves could possible transition to q 12 (6) Hypokalemia: Code(s): E87.6 - Hypokalemia Status: Acute Assessment and Plan: -Replace and monitor as needed (7) Elevated blood sugar: Code(s): R73.9 - Hyperglycemia, unspecified Status: Acute Assessment and Plan: -Sliding scale insulin and hypoglycemic protocol -A1c 7.4, will likely need to be started on medication outpatient, will place consult to health educator (left voicemail for Ligia) (8) Abrasion of vagina: Qualifiers: Encounter type: initial encounter Qualified Code(s): S30.814A - Abrasion of vagina and vulva, initial encounter Code(s): S30.814A - Abrasion of vagina and vulva, initial encounter Status: Acute Assessment and Plan: -Unable to visualize on exam due to body habitus -no blood noted in depends on exam -will have wound care evaluate further -pt does not have an OBGYN currently so will need one at discharge Subjective Date/time seen: 05/24/21 13:49 Interval history: 70 yo female bed bound [facility] resident w/ hx of morbid obesity, HTN, CKD, hypothyroid, chronic edema, depression, and gout, admitted to the hospital for UTI and JESSICA. Today patient reports continued fatigue and increased urinary frequency. No dysuria. States she thinks her cough is improved. On 3L NC which is her baseline. No cp or sob. Review of Systems Review of Systems: General: Denies fevers, +fatigue Eyes: Denies vision changes ENT: Denies nasal congestion or sore throat Respiratory: + dry cough, denies shortness of breath Cardiovascular: Denies chest pain, + lower extremity edema Gastrointestinal: Denies abdominal pain, vomiting, or diarrhea Genitourinary: Denies dysuria, +increased urinary frequency Musculoskeletal: + back pain Neurological: Denies headache, +chronic motor weakness Integumentary: +chronic pruritis Exam Narrative: General: No acute distress, chronically ill appearing, morbidly obese, dis
[2021-05-24 16:58] LABS: Glucose Point of Care 177 mg/dl (65-105)
--- NOTE | 2021-05-24 17:22 | PM.PNNEP ---
Progress Note: A&P Assessment and Plan (1) Abnormal results of kidney function studies: Code(s): R94.4 - Abnormal results of kidney function studies Status: Acute Assessment and Plan: The patient has an elevated creatinine. She had renal failure in 2007. she was seeing Dr. Ron before but has not seen him in a couple of years because of COVID. Her creatinine in October of 2020 was 1.8. renal ultrasound shows smallish kidneys urine electrolytes are non pre renal total CK is normal creatinine is about the same at 3.8. this is acute on chronic kidney disease. Continue IV fluids 1 more day. She is getting antibiotics for her UTI. (2) Anemia: Code(s): D64.9 - Anemia, unspecified Status: Acute Assessment and Plan: Hemoglobin is back up to normal. Evaluation of a vaginal bleeding per hospitalist. (3) Hypokalemia: Code(s): E87.6 - Hypokalemia Status: Acute Assessment and Plan: Resolved (4) Acute UTI: Code(s): N39.0 - Urinary tract infection, site not specified Status: Acute Assessment and Plan: Cultures have been sent and she is on antibiotics (5) Gout: Code(s): M10.9 - Gout, unspecified Status: Acute Assessment and Plan: she is on allopurinol. No symptoms currently. (6) Hypothyroid: Code(s): E03.9 - Hypothyroidism, unspecified Status: Acute Assessment and Plan: She is on supplements. Subjective Date/time seen: 05/24/21 17:22 Interval history: Fay is feeling a little better. Cough is improved. Review of Systems Cardiovascular: Cardiovascular: Reports no additional cardiovascular complaints Respiratory: Respiratory: Reports no additional respiratory complaints Gastrointestinal: Gastrointestinal: Reports no additional gastrointestinal complaints Genitourinary: Genitourinary: Reports no additional female genitourinary complaints Exam Narrative: WDWN in NAD skin no rash head ncat lungs clear bilaterally cor reg no rub or gallop abd BS+ nontender and soft ext 1+ bilateral edema. Objective Data Vital Signs Vital Signs: Vital Signs - 24 hr 05/23/21 19:50 05/23/21 19:53 05/23/21 20:03 Temperature 37.1 C Pulse Rate 108 H 90 90 Respiratory Rate Blood Pressure 100/67 Pulse Oximetry 99 05/23/21 20:20 05/24/21 02:37 05/24/21 02:47 Temperature Pulse Rate 88 88 Respiratory Rate 19 19 Blood Pressure Pulse Oximetry 99 05/24/21 03:40 05/24/21 09:48 05/24/21 09:55 Temperature 36.6 C Pulse Rate 99 87 85 Respiratory Rate 17 18 18 Blood Pressure 117/59 L Pulse Oximetry 94 05/24/21 13:31 05/24/21 13:39 05/24/21 14:05 Temperature 36.8 C Pulse Rate 98 96 97 Respiratory Rate 18 18 20 Blood Pressure 108/60 Pulse Oximetry 94 Intake/Output Intake/Output: Intake & Output 05/21/21 05/22/21 05/23/21 05/24/21 23:59 23:59 23:59 23:59 Intake Total 3130 3640 850 Output Total 50 Balance 3080 3640 850 Meds/Results Medications: Active Medications Generic Name Dose Route Start Last Admin Trade Name Freq PRN Reason Stop Dose Admin Acetaminophen 650 mg 05/22/21 08:43 Acetaminophen 325 Mg Tablet PO Q4H PRN Pain (Scale Score 1-3) Acetaminophen/Codeine Phosphate 1 tab 05/22/21 11:15 05/24/21 10:38 Acetaminophen/Codeine (*Crx) 300/30 Mg Tablet PO 1 tab TID PRN Administration Pain (Scale Score 4-6) Albuterol 2.5 mg 05/22/21 14:00 05/24/21 13:31 Albuterol Sulfate Neb 2.5 Mg/0.5 Ml Inh INHALATION 2.5 mg Q6HRT MARIBELL Administration Allopurinol 100 mg 05/22/21 09:00 05/24/21 08:19 Allopurinol 100 Mg Tablet PO 100 mg DAILY MARIBELL Administration Artificial Tears 1 drop 05/22/21 09:11 Artificial Tears Ophth Soln 15 Ml Bottle EACH EYE TID PRN Dry Eyes Baclofen 5 mg 05/22/21 09:00 05/24/21 08:19 Baclofen 5 Mg Tablet PO 5 mg
[2021-05-24] MEDS: SODIUM CHLORIDE 0.9% IV 1,000 ML 75 ML IV CONT (17:33)
[2021-05-24] MEDS: ENOXAPARIN 120 MG/0.8 ML SYRINGE 105 MG SUB-Q (17:33)
[2021-05-24 21:19] LABS: Glucose Point of Care 165 mg/dl (65-105)
[2021-05-25] VITALS (10 sets, daily range): BP systolic 90–110; BP diastolic 50–61; PULSE 95–104; RESP 16–18; TEMP 36.3–37.1; O2SAT 91–97
[2021-05-25] MEDS: ALBUTEROL SULFATE NEB 2.5 MG/0.5 ML INH INHALATION ×4 (01:07→21:27)
[2021-05-25] MEDS: IPRATROPIUM BR 0.02% INH SOLN 0.5 MG/2.5 ML VIAL INHALATION ×4 (01:07→21:28)
--- NOTE | 2021-05-25 04:58 | ECG_ITS ---
Measurements Intervals [place] Rate: 103 P: 41 [place]: 227 QRS: 119 QRSD: 88 T: 51 QT: 323 QTc: 423 Interpretive Statements SINUS TACHYCARDIA WITH FIRST DEGREE AV BLOCK RIGHT AXIS DEVIATION LOW VOLTAGE- DIFFUSE LEADS ANTEROSEPTAL INFARCT, AGE INDETERMINATE BORDERLINE T WAVE ABNORMALITY- INFERIOR LEADS BASELINE WANDER- I, II, AVR, AVL, AVF, V1, V4-V6 ABNORMAL ECG Electronically Signed On 05-25-2021 6:27:08 DIALYSIS TECH by Maxime Zacarias D.O.
[2021-05-25 05:40] LABS: Basophils Absolute Auto 0.2 K/mm3 (0.0-0.1); Basophils Percent Auto 0.5 % (0.2-1.2); Eosinophils Absolute Auto 1.6 K/mm3 (0-0.3); Eosinophils Percent Auto 4.8 % (0-4.4); Hematocrit 41.9 % (37.0-47.0); Hemoglobin 13.2 g/dL (12.0-15.0); Immature Granulocyte Absolute 1.15 K/mm3 (0.00-0.031); Immature Granulocyte Percent A 3.5 % (0-0.5); Lymphocytes Absolute Auto 0.87 K/mm3 (0.9-3.2); Lymphocytes Percent Auto 2.7 % (18.3-44.2); Mean Corpuscular HGB Conc 31.5 g/dl (32-36); Mean Corpuscular Hemoglobin 29.3 pg (26-34); Mean Corpuscular Volume 93.1 fl (80-100); Monocytes Absolute Auto 0.8 K/mm3 (0.1-0.6); Monocytes Percent Auto 2.3 % (2.6-8.5); Neutrophils Absolute Auto 28.3 K/mm3 (1.3-6.7); Neutrophils Percent Auto 86.2 % (45.5-73.1); Platelet Count Result 251 k/mm3 (150-375); Red Cell Distribution Width 16.1 % (11.5-14.5); White Blood Count 32.8 K/mm3 (4.5-10.0)
[2021-05-25 05:52] LABS: Alanine Aminotransferase 24 U/L (4-35); Albumin Level 3.3 g/dL (3.5-5.1); Alkaline Phosphatase 124 U/L (38-126); Anion Gap 12 mmol/L (8-16); Aspartate Amino Transferase 22 U/L (14-36); Bilirubin,Total 0.4 mg/dL (0.2-1.3); Blood Urea Nitrogen 46 mg/dL (7-17); Carbon Dioxide 15 mmol/L (22-30); Chloride 109 mmol/L (98-107); Estimated Glomerular Filt Rate 10; Glucose 177 mg/dL (65-110); Potassium 3.7 mmol/L (3.4-5.0); Sodium 136 mmol/L (137-145)
[2021-05-25 05:57] LABS: Albumin Level 3.4 g/dL (3.5-5.1); Anion Gap 13 mmol/L (8-16); Blood Urea Nitrogen 46 mg/dL (7-17); Calcium 8.9 mg/dL (8.4-10.2); Carbon Dioxide 13 mmol/L (22-30); Chloride 110 mmol/L (98-107); Estimated Glomerular Filt Rate 10; Glucose 178 mg/dL (65-110); Phosphorus 3.7 mg/dL (2.5-4.5); Potassium 3.7 mmol/L (3.4-5.0); Sodium 136 mmol/L (137-145)
[2021-05-25] MEDS: ONDANSETRON INJ 4 MG/2 ML VIAL IV PUSH (05:57)
[2021-05-25] MEDS: LEVOTHYROXINE SODIUM 150 MCG TABLET PO (06:21)
[2021-05-25] MEDS: SODIUM CHLORIDE 0.9% IV 1,000 ML 75 ML IV CONT (06:22)
--- NOTE | 2021-05-25 07:51 | PM.PNNEP ---
Progress Note: A&P Assessment and Plan (1) Abnormal results of kidney function studies: Code(s): R94.4 - Abnormal results of kidney function studies Status: Acute Assessment and Plan: The patient has an elevated creatinine. She had renal failure in 2007. she was seeing Dr. Ron before but has not seen him in a couple of years because of COVID. Her creatinine in October of 2020 was 1.8. renal ultrasound shows smallish kidneys urine electrolytes are non pre renal total CK is normal Her creatinine has risen a bit. It is now 4.3. this is acute on chronic kidney disease. She is eating well. Will stop the IV fluids She is on Zithromax for pneumonia. Her urine is growing E coli and and Zithromax is not on the list of antibiotics. Will add Augmentin Hopefully renal function will turn around soon. (2) Anemia: Code(s): D64.9 - Anemia, unspecified Status: Acute Assessment and Plan: Hemoglobin is back up to normal. Evaluation of a vaginal bleeding per hospitalist. (3) Hypokalemia: Code(s): E87.6 - Hypokalemia Status: Acute Assessment and Plan: Resolved (4) Acute UTI: Code(s): N39.0 - Urinary tract infection, site not specified Status: Acute Assessment and Plan: E coli. Augmentin as above (5) Gout: Code(s): M10.9 - Gout, unspecified Status: Acute Assessment and Plan: she is on allopurinol. No symptoms currently. (6) Hypothyroid: Code(s): E03.9 - Hypothyroidism, unspecified Status: Acute Assessment and Plan: She is on supplements. Subjective Date/time seen: 05/25/21 07:51 Interval history: Fay is feeling a little better. Cough is improved. She is eating well. Exam Narrative: WDWN in NAD skin no rash or subQ nodules head ncat lungs clear bilaterally cor reg no rub or gallop abd BS+ nontender and soft ext 1+ bilateral edema. Objective Data Vital Signs Vital Signs: Vital Signs - 24 hr 05/24/21 09:48 05/24/21 09:55 05/24/21 13:31 Temperature Pulse Rate 87 85 98 Respiratory Rate 18 18 18 Blood Pressure Pulse Oximetry 05/24/21 13:39 05/24/21 14:05 05/24/21 20:00 Temperature 36.8 C Pulse Rate 96 97 Respiratory Rate 18 20 Blood Pressure 108/60 Pulse Oximetry 94 97 05/24/21 20:20 05/24/21 20:21 05/24/21 20:30 Temperature Pulse Rate 103 H 105 H Respiratory Rate 18 18 Blood Pressure Pulse Oximetry 98 05/24/21 22:00 05/25/21 01:10 05/25/21 06:00 Temperature 36.4 C 36.3 C L Pulse Rate 105 H 95 104 H Respiratory Rate 16 18 16 Blood Pressure 117/63 110/53 L Pulse Oximetry 93 95 Intake/Output Intake/Output: Intake & Output 05/22/21 05/23/21 05/24/21 05/25/21 23:59 23:59 23:59 23:59 Intake Total 3130 3640 2690 1150 Output Total 50 Balance 3080 3640 2690 1150 Meds/Results Medications: Active Medications Generic Name Dose Route Start Last Admin Trade Name Freq PRN Reason Stop Dose Admin Acetaminophen 650 mg 05/22/21 08:43 Acetaminophen 325 Mg Tablet PO Q4H PRN Pain (Scale Score 1-3) Acetaminophen/Codeine Phosphate 1 tab 05/22/21 11:15 05/24/21 10:38 Acetaminophen/Codeine (*Crx) 300/30 Mg Tablet PO 1 tab TID PRN Administration Pain (Scale Score 4-6) Albuterol 2.5 mg 05/22/21 14:00 05/25/21 01:07 Albuterol Sulfate Neb 2.5 Mg/0.5 Ml Inh INHALATION 2.5 mg Q6HRT MARIBELL Administration Allopurinol 100 mg 05/22/21 09:00 05/24/21 08:19 Allopurinol 100 Mg Tablet PO 100 mg DAILY MARIBELL Administration Artificial Tears 1 drop 05/22/21 09:11 Artificial Tears Ophth Soln 15 Ml Bottle EACH EYE TID PRN Dry Eyes Baclofen 5 mg 05/22/21 09:00 05/24/21 17:33 Baclofen 5 Mg Tablet PO 5 mg BID MARIBELL Administration Calcitriol 0.25 mcg 05/22/21 09:00 05/24/21 08:19 Calcitriol 0.25 Mcg Capsule PO 0.25 mcg DAILY MARIBELL Admi
[2021-05-25 08:42] LABS: Glucose Point of Care 168 mg/dl (65-105)
[2021-05-25] MEDS: DULoxetine HCL 30 MG CAPSULE.DR PO (08:43)
[2021-05-25] MEDS: calcitrioL 0.25 MCG CAPSULE PO (08:43)
[2021-05-25] MEDS: MULTIVITAMINS THERAPEUTIC TAB (*BKC) 1 TABLET PO (08:43)
[2021-05-25] MEDS: allopurinoL 100 MG TABLET PO (08:43)
[2021-05-25] MEDS: guaiFENesin 12 HR 600 MG TABCR PO ×2 (08:43→22:14)
[2021-05-25] MEDS: LORATADINE 10 MG TABLET PO (08:43)
[2021-05-25] MEDS: BACLOFEN 5 MG TABLET PO (08:43)
--- NOTE | 2021-05-25 10:23 | PM.IMPN ---
Progress Note: A&P Assessment and Plan (1) Arm weakness: Code(s): R29.898 - Other symptoms and signs involving the musculoskeletal system Status: Acute Assessment and Plan: I was called by the nurse this morning due to bilateral arm weakness. Ordered a stat CT brain and cervical spine which showed Severe cervical spondylosis. 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 Age-related intracranial findings. Concern given abnormal physical exam findings. Called the neurologist for a consultation who sees her today Will ordered MRI of her cervical spine for further evaluation Also ordering an ROS, CRP, TSH continue close monitoring. appreciate neurology input (2) Fatigue: Code(s): R53.83 - Other fatigue Status: Acute Assessment and Plan: patient states she is feeling very tired and fatigued today. Cannot stay awake. Due to chronic lung disease and requiring oxygen will do a stat ABG for further evaluation to rule out CO2 retention causing fatigue continue monitoring. (3) Leukocytosis: Qualifiers: Leukocytosis type: unspecified Qualified Code(s): D72.829 - Elevated white blood cell count, unspecified Code(s): D72.829 - Elevated white blood cell count, unspecified Status: Acute Assessment and Plan: Leukocytosis is becoming worse at 32,000, elevated neutrophils at 86%. She is on day #4 IV Rocephin and day #3 of IV azithromycin for the treatment of an E coli UTI and possible community-acquired pneumonia. Blood cultures Are negative to date she is not having Any fevers and vital signs are otherwise stable denies change to her breathing, abdominal pain continue monitoring. (4) Acute UTI: Code(s): N39.0 - Urinary tract infection, site not specified Status: Acute Assessment and Plan: IV Rocephin #4. Urine culture positive for E. Coli, sensitive to Rocephin -Blood cultures Negative to date (5) Acute kidney injury: Code(s): N17.9 - Acute kidney failure, unspecified Status: Acute Assessment and Plan: Acute on chronic JESSICA. -4.1 on arrival, no prior for comparison -Pt apparently had renal failure in 2007, sees Dr. Ron - nephrology from labs from October 2020 which showed a creatinine 1.8. -Nephrology consulted And discontinued her IV fluids. Diuretics held -Urine electrolytes are non pre renal, renal ultrasound shows smallish kidneys, total CK WNL -Creat Increased to 4.3. Appreciate Nephrology's input. (6) Pneumonia: Code(s): J18.9 - Pneumonia, unspecified organism Status: Acute Assessment and Plan: -Pt w/ hx of COPD, reports dry cough -CXR w/ atelectasis vs pneumonia -wheezing on exam -will cover for pneumonia by adding azithromycin #3 to the rocephin she is already on for UTI (7) DVT (deep venous thrombosis): Code(s): I82.409 - Acute embolism and thrombosis of unspecified deep veins of unspecified lower extremity Status: Acute Assessment and Plan: -venous doppler positive for R femoral nonocclusive DVT -spoke w/ pharmacist, due to JESSICA patient was started on Lovenox 1 mg/kg q 24 hours. If kidney function improves could possible transition to q 12 (8) Hypokalemia: Code(s): E87.6 - Hypokalemia Status: Acute Assessment and Plan: -Replace and monitor as needed (9) Elevated blood sugar: Code(s): R73.9 - Hyperglycemia, unspecified Status: Acute Assessment and Plan: -Sliding scale insulin and hypoglycemic protocol
[2021-05-25 10:52] LABS: Alveolar/Arterial O2 Gradient 82.2 mmHg; Base Excess ABG -13.1 mEq/l (+/-2.0); Carboxyhemoglobin 0.5 % THb (0-2.0); Fractional Inspired Oxygen 28 %; HCO3 ABG 14.6 mEq/l (22.0-26.0); Methemoglobin ABG 0.1 %THb (0-1.5); Oxygen Content ABG 18.3 %vol (16.0-22.0); Oxygen Saturation ABG 89.7 % (95.0-100.0); Oxyhemoglobin 92.4 % THb (90.0-100.0); PCO2 ABG 40.2 mmHg (35.0-45.0); Total Hemoglobin 14.1 g/dL (12.0-18.0)
[2021-05-25 10:53] LABS: pH ABG 7.179 (7.350-7.450)
[2021-05-25 10:54] LABS: Device NASAL CANNULA; Modified Allen's Test Pass; Site Drawn LEFT RADIAL
--- NOTE | 2021-05-25 11:01 | PCOTNOTE ---
Pt. is nursing home resident at residential and fully dependent at baseline. D/C orders for evaluation, as pt. is not appropriate for therapy services
[2021-05-25 12:19] LABS: CRP 14.3 mg/dL (<1.0)
[2021-05-25 12:33] LABS: Glucose Point of Care 202 mg/dl (65-105)
[2021-05-25] MEDS: FLUTICASONE/SALMETEROL 115-21 MCG INHALER 1 PUFF 2 PUFF INHALATION ×2 (13:07→21:27)
[2021-05-25] MEDS: SODIUM BICARBONATE 8.4% 150 MEQ in WATER, STERILE FOR INJECTION 950 ML 100 MEQ IV CONT ×2 (13:15→23:40)
[2021-05-25] MEDS: BUMETANIDE INJ 1 MG/4 ML VIAL IV PUSH ×2 (13:23→17:37)
[2021-05-25 13:54] LABS: Lactic Acid Reflex 1.6 mmol/L (0.7-2.1)
--- NOTE | 2021-05-25 15:57 | WPDNEURCNPN ---
Assessment and Plan Additional Plan generalized weakness with early neuropathy secondary to multiple factors including renal insufficiency, diabetes mellitus, and early spinal stenosis secondary to arthritic spine, will benefit from the general medical treatment r as being done at this stage Consult date: 05/25/21 HPI: Fay Dean is a 70 year old female admitted to the hospital for the complaints of generalized weakness of several days duration in addition to the documented history of acute renal insufficiency in the emergency room and past history of gout, hypothyroidism, years smoked 50 with former smoker but no alcohol drinking, and multiple medications along with initial evaluation revealing leukocytosis, elevated BUN and creatinine but normal hepatic enzymes except her evaluation up until documented the MRI of the cervical spine with severe cervical spondylosis with mid cervical central canal stenosis without cord signal, , and CT of the c.spine documenting mild central canal stenosis, venous Doppler study with right femoral nonocclusive DVT and no left DVT, hepatic steatosis on ultrasound of retroperitoneal compartment but no hydronephrosis Review of Systems Review of Systems: All systems reviewed & are unremarkable except as noted in HPI and below PMFSH Past Medical History Medical History Abnormal results of kidney function studies Anemia Gout Hypothyroid Family History Family History Father Dementia Mother Alcohol abuse Social History Social History Years smoked: 50 Smoking status: Former smoker Alcohol intake: never Substance use: never Substance use type: does not use Spiritual care concerns: No Meds Home Medications and Allergies Home Medications Medication Instructions Recorded Confirmed Type acetaminophen 650 mg PO Q4H PRN 05/22/21 05/22/21 History acetaminophen-codeine 1 tablet PO TID PRN 05/22/21 05/22/21 History allopurinol 100 mg PO DAILY 05/22/21 05/22/21 History artificial tears solution 1 drp OPHTHALMIC (EYE) TID PRN 05/22/21 05/22/21 History baclofen 5 mg PO BID 05/22/21 05/22/21 History calcitriol 0.25 mcg PO DAILY 05/22/21 05/22/21 History cetirizine [Zyrtec] 10 mg PO DAILY 05/22/21 05/22/21 History cholecalciferol (vitamin D3) 50,000 unit PO WEEKLY 05/22/21 05/22/21 History diphenhydramine HCl 25 mg PO TID PRN 05/22/21 05/22/21 History duloxetine 30 mg PO DAILY 05/22/21 05/22/21 History fluticasone propion-salmeterol 1 inh INHALATION BID 05/22/21 05/22/21 History furosemide 20 mg PO DAILY 05/22/21 05/22/21 History guaifenesin [Mucinex] 600 mg PO BID 05/22/21 05/22/21 History hydroxyzine HCl 25 mg PO BID PRN 05/22/21 05/22/21 History ipratropium-albuterol 3 ml INHALATION Q6H 05/22/21 05/22/21 History levothyroxine 150 mcg PO DAILY 05/22/21 05/22/21 History multivitamin [Daily Multivitamin] 1 tablet PO DAILY 05/22/21 05/22/21 History nystatin [Nystop] 1 applic TOPICAL DAILY PRN 05/22/21 05/22/21 History umeclidinium [Incruse Ellipta] 1 inh INHALATION DAILY 05/22/21 05/22/21 History Allergies Allergy/AdvReac Type Severity Reaction Status Date / Time Sulfa (Sulfonamide Allergy Swelling Verified 05/21/21 18:22 Antibiotics) Vital Signs Vital Signs - 24 hr 05/24/21 20:00 05/24/21 20:20 05/24/21 20:21 Temperature Pulse Rate 103 H Respiratory Rate 18 Blood Pressure Pulse Oximetry 97 98 05/24/21 20:30 05/24/21 22:00 05/25/21 01:10 Temperature 36.4 C Pulse Rate 105 H 105 H 95 Respiratory Rate 18 16 18 Blood Pressure 117/63 Pulse Oximetry 93 05/25/21 06:00 05/25/21 08:45 05/25/21 13:02 Temperature 36.3 C L Pulse Rate 104 H 99 Respiratory Rate 16 18 Blood Pressure 110/53 L Pulse Oximetry 95 91 05/25/21 14:15 Temperature 36.7 C Pulse Rate 102 H Respiratory Rate 18 Blood Pressu
[2021-05-25 16:01] LABS: Alveolar/Arterial O2 Gradient 110.1 mmHg; Base Excess ABG -11.8 mEq/l (+/-2.0); Carboxyhemoglobin 0.4 % THb (0-2.0); Fractional Inspired Oxygen 32 %; HCO3 ABG 15.8 mEq/l (22.0-26.0); Methemoglobin ABG 0.2 %THb (0-1.5); Oxygen Content ABG 16.8 %vol (16.0-22.0); Oxygen Saturation ABG 89.7 % (95.0-100.0); Oxyhemoglobin 92.5 % THb (90.0-100.0); PCO2 ABG 41.9 mmHg (35.0-45.0); PO2 FiO2 Ratio Arterial Blood 2.16 %; Reduced Hemoglobin 6.9 %THb (0-5.0); Total Hemoglobin 12.9 g/dL (12.0-18.0)
[2021-05-25 16:03] LABS: Device NASAL CANNULA; Modified Allen's Test Pass; Site Drawn LEFT RADIAL; pH ABG 7.194 (7.350-7.450)
[2021-05-25 16:58] LABS: Glucose Point of Care 193 mg/dl (65-105)
[2021-05-25] MEDS: ENOXAPARIN 120 MG/0.8 ML SYRINGE 105 MG SUB-Q (17:38)
[2021-05-25 20:06] LABS: Creatine Kinase < 20 U/L (30-135)
[2021-05-25 20:51] LABS: Anion Gap 13 mmol/L (8-16); Blood Urea Nitrogen 50 mg/dL (7-17); Calcium 8.9 mg/dL (8.4-10.2); Carbon Dioxide 17 mmol/L (22-30); Chloride 107 mmol/L (98-107); Estimated Glomerular Filt Rate 10; Glucose 162 mg/dL (65-110); Potassium 3.7 mmol/L (3.4-5.0); Sodium 137 mmol/L (137-145)
[2021-05-25 22:48] LABS: Glucose Point of Care 169 mg/dl (65-105)
[2021-05-25 23:14] LABS: Alveolar/Arterial O2 Gradient 125.6 mmHg; Base Excess ABG -9.1 mEq/l (+/-2.0); Carboxyhemoglobin 0.3 % THb (0-2.0); Fractional Inspired Oxygen 35 %; HCO3 ABG 17.8 mEq/l (22.0-26.0); Methemoglobin ABG 0.2 %THb (0-1.5); Oxygen Content ABG 17.2 %vol (16.0-22.0); Oxygen Saturation ABG 92.8 % (95.0-100.0); PO2 ABG 75.1 mmHg (80.0-100.0); PO2 FiO2 Ratio Arterial Blood 2.15 %; Reduced Hemoglobin 5.5 %THb (0-5.0)
[2021-05-25 23:17] LABS: Device NON-INVASIVE VENT; Modified Allen's Test Pass; Site Drawn LEFT RADIAL; pH ABG 7.245 (7.350-7.450)
[2021-05-25 23:18] LABS: Non-Invasive Expiratory Pressure 4 CMH2O; Non-Invasive Inspiratory Pressure 12 CMH2O; Non-Invasive Vent Rate 12 /MIN
[2021-05-26] VITALS (20 sets, daily range): BP systolic 100–144; BP diastolic 58–88; PULSE 45–114; RESP 14–33; TEMP 36–37.5; O2SAT 93–99
[2021-05-26] MEDS: IPRATROPIUM BR 0.02% INH SOLN 0.5 MG/2.5 ML VIAL INHALATION ×4 (02:54→20:27)
[2021-05-26] MEDS: ALBUTEROL SULFATE NEB 2.5 MG/0.5 ML INH INHALATION ×4 (02:54→20:27)
[2021-05-26 05:15] LABS: Basophils Absolute Auto 0.2 K/mm3 (0.0-0.1); Basophils Percent Auto 0.5 % (0.2-1.2); Eosinophils Absolute Auto 1.8 K/mm3 (0-0.3); Eosinophils Percent Auto 4.6 % (0-4.4); Hematocrit 39.7 % (37.0-47.0); Hemoglobin 12.5 g/dL (12.0-15.0); Immature Granulocyte Absolute 1.48 K/mm3 (0.00-0.031); Immature Granulocyte Percent A 3.8 % (0-0.5); Lymphocytes Absolute Auto 0.87 K/mm3 (0.9-3.2); Lymphocytes Percent Auto 2.3 % (18.3-44.2); Mean Corpuscular HGB Conc 31.5 g/dl (32-36); Mean Corpuscular Hemoglobin 29.3 pg (26-34); Mean Platelet Volume 11.2 fl (7.4-10.4); Monocytes Absolute Auto 0.7 K/mm3 (0.1-0.6); Monocytes Percent Auto 1.7 % (2.6-8.5); Neutrophils Absolute Auto 33.6 K/mm3 (1.3-6.7); Neutrophils Percent Auto 87.1 % (45.5-73.1); Platelet Count Result 238 k/mm3 (150-375); Red Blood Count 4.27 M/mm3 (4.2-5.4); Red Cell Distribution Width 16.3 % (11.5-14.5); White Blood Count 38.6 K/mm3 (4.5-10.0)
[2021-05-26 05:43] LABS: Albumin Level 2.9 g/dL (3.5-5.1); Anion Gap 13 mmol/L (8-16); Blood Urea Nitrogen 52 mg/dL (7-17); Calcium 8.6 mg/dL (8.4-10.2); Carbon Dioxide 17 mmol/L (22-30); Chloride 104 mmol/L (98-107); Estimated Glomerular Filt Rate 10; Glucose 160 mg/dL (65-110); Lactate Dehydrogenase 394 U/L (313-618); Phosphorus 3.9 mg/dL (2.5-4.5); Potassium 3.4 mmol/L (3.4-5.0); Sodium 134 mmol/L (137-145)
[2021-05-26 06:03] LABS: CRP 18.3 mg/dL (<1.0)
--- NOTE | 2021-05-26 06:12 | PC.NURSE ---
0600 ENTERED ROOM TO GIVE PT MORNING MEDICATION AND NOTICED HER MAKING ABNORMAL MOVEMENTS WITH HER HANDS. UNCLAMPED BIPAP MACHINE FROM FACE ON ONE SIDE IN ORDER TO GIVE HER THE MEDICATION AND NOTICED PTS TONGUE WAS LARGE, DUSKY AND DRY. PT WAS HAVING A HARD TIME SWALLOWING AND KEEPING TONGUE IN HER MOUTH. WET PT MOUTH WITH SWAB AND THAT SEEMED TO HELP SOME. IN THE SHORT TIME WE HAD THE BIPAP OFF THE PT O2 SAT DROPPED INTO THE 70'S IMMEDIATELY PLACED THE PT BACK ON THE BIPAP AND SATS WENT BACK INTO THE 90'S. CALLED DR JEFFRIES TO INFORM HER OF PT STATUS AND SHE STATED THAT LONG THE PT IS HOLDING HER 02 SATS ON THE BIPAP SHE SHOULD STAY ON IT UNTIL DAY SHIFT WHEN THE PT DOCTORS COME IN TO ASSESS HER.
--- NOTE | 2021-05-26 07:27 | PC.NURSE ---
Patient placed on bipap last night. Per night RN, they attempted to remove bipap to change the patient and she desaturated into the 70's. Patient has blisters to chest area, is very red to generalized area. Patient did have ABG's drawn last night and they resulted with a critical pH, WBC rising to 38.6 this morning also. Called to notify hospitalist, Dr. Gould and requested Dr. Gould come look at patient. Dr. Gould stated she would be up shortly to assess patient.
[2021-05-26 07:58] LABS: Glucose Point of Care 179 mg/dl (65-105)
--- NOTE | 2021-05-26 08:11 | PM.IMPN ---
Progress Note: A&P Assessment and Plan (1) Arm weakness: Code(s): R29.898 - Other symptoms and signs involving the musculoskeletal system Status: Acute Assessment and Plan: Generalize weakness, more prominent at the at the scapular and pelvic girdle is. CT brain and cervical spine which showed Severe cervical spondylosis. 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 Age-related intracranial findings. Neurology was consulted. Appreciate recommendation. Follow-up ROS, CRP, TSH. CK level was normal. Send connective tissue workup. (2) Fatigue: Code(s): R53.83 - Other fatigue Status: Acute Assessment and Plan: Patient carries a chronic diagnosis of COPD. In addition, clinically patient present with a picture of the Pickwickian syndrome. Her sleep apnea does not appear that she has been treated in the recent past. We will order an apnea link. She is not able to remain awake and falls asleep during our encounter. She was started on noninvasive ventilatory support with BiPAP overnight with modest improvement of her gas exchange. Mentation remains poor with patient lethargic. She is saturating in the mid 90s. Pulmonary was consulted. Appreciate recommendations. (3) Leukocytosis: Qualifiers: Leukocytosis type: unspecified Qualified Code(s): D72.829 - Elevated white blood cell count, unspecified Code(s): D72.829 - Elevated white blood cell count, unspecified Status: Acute Assessment and Plan: Leukocytosis is again worse at 38,000, elevated neutrophils at 86%. She is on day #5 IV Rocephin and day #4 of IV azithromycin for the treatment of an E coli UTI and possible community-acquired pneumonia. Blood cultures remain negative to date she is not having Any fevers and vital signs are otherwise stable denies change to her breathing, abdominal pain continue monitoring. (4) Acute UTI: Code(s): N39.0 - Urinary tract infection, site not specified Status: Acute Assessment and Plan: IV Rocephin #5. Urine culture positive for E. Coli, sensitive to Rocephin -Blood cultures Negative to date (5) Acute kidney injury: Code(s): N17.9 - Acute kidney failure, unspecified Status: Acute Assessment and Plan: Acute non oliguric kidney injury in the setting of previously known CKD Baseline creatiine 1.13 October 2020 -4.1 on arrival, no prior for comparison -Nephrology consulted And discontinued her IV fluids. Diuretics held -Urine electrolytes are non pre renal, renal ultrasound shows smallish kidneys, total CK WNL -Creat plateaued to 4.3. Appreciate Nephrology's input. (6) Pneumonia: Code(s): J18.9 - Pneumonia, unspecified organism Status: Acute Assessment and Plan: -Pt w/ hx of COPD, reports dry cough -CXR w/ atelectasis vs pneumonia -poor insoiratory effort; no wheezing -Continue azithromycin #4 to the rocephin she is already on for UTI (7) DVT (deep venous thrombosis): Code(s): I82.409 - Acute embolism and thrombosis of unspecified deep veins of unspecified lower extremity Status: Acute Assessment and Plan: -venous doppler positive for R femoral nonocclusive DVT -spoke w/ pharmacist, due to JESSICA patient was started on Lovenox 1 mg/kg q 24 hours. (8) Hypokalemia: Code(s): E87.6 - Hypokalemia Status: Acute Assessment and Plan: -Replace and monitor as needed (9) Elevated blood sugar: Code(s): R73.9 - Hyperglycemia, unspecified Status: Acute A
[2021-05-26] MEDS: SODIUM BICARBONATE 8.4% 150 MEQ in WATER, STERILE FOR INJECTION 950 ML 100 MEQ IV CONT ×2 (10:16→21:31)
[2021-05-26] MEDS: MICONAZOLE NITRATE 2% CREAM 30 GM TUBE 1 APPLIC TOPICAL ×2 (10:40→21:24)
--- NOTE | 2021-05-26 11:00 | PC.NURSE ---
This patient, Fay Dean, was transferred to IMU on 05/26/21 at 1100. Personal belongings sent with patient. Report given to Maria Fernanda TOLLIVER. Appropriate documentation sent with patient.
--- NOTE | 2021-05-26 11:08 | PC.NURSE ---
This patient, Fay Dean, was received from [ room 247] on 05/26/21 at 1108. Patient/family oriented to unit policies and routines. Report taken from Leisa. Patient on continuous BIPAP. Patient skin is bright red and itchy. Patient oriented X4
[2021-05-26 14:14] LABS: Glucose Point of Care 179 mg/dl (65-105)
[2021-05-26] MEDS: methylPREDNISolone SOD SUCC 125 MG VIAL 60 MG IV PUSH ×3 (16:57→23:21)
[2021-05-26] MEDS: LORATADINE 10 MG TABLET PO (16:57)
[2021-05-26] MEDS: BACLOFEN 5 MG TABLET PO (16:57)
[2021-05-26 17:35] LABS: Glucose Point of Care 162 mg/dl (65-105)
--- NOTE | 2021-05-26 18:16 | PM.PNNEP ---
Progress Note: A&P Assessment and Plan (1) Abnormal results of kidney function studies: Code(s): R94.4 - Abnormal results of kidney function studies Status: Acute Assessment and Plan: The patient has an elevated creatinine. She had renal failure in 2007. she was seeing Dr. Ron before but has not seen him in a couple of years because of COVID. Her creatinine in October of 2020 was 1.8. renal ultrasound shows smallish kidneys urine electrolytes are non pre renal total CK is normal her creatinine started out at 4.1 and fell to 3.7 but now his on the rise again up to 4.5. 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 Will continue prednisone. Unclear what this is from. She did receive a few doses of ceftriaxone earlier in the hospital stay. She is also on Zithromax. All of these are gone. She is eating well. (2) Anemia: Code(s): D64.9 - Anemia, unspecified Status: Acute Assessment and Plan: Hemoglobin is back up to normal. Evaluation of a vaginal bleeding per hospitalist. (3) Hypokalemia: Code(s): E87.6 - Hypokalemia Status: Acute Assessment and Plan: Resolved (4) Acute UTI: Code(s): N39.0 - Urinary tract infection, site not specified Status: Acute Assessment and Plan: E coli. Will repeat the urinalysis. (5) Gout: Code(s): M10.9 - Gout, unspecified Status: Acute Assessment and Plan: she is on allopurinol. No symptoms currently. (6) Hypothyroid: Code(s): E03.9 - Hypothyroidism, unspecified Status: Acute Assessment and Plan: She is on supplements. Subjective Date/time seen: 05/26/21 18:16 Interval history: Fay has developed a superficial desquamating rash and worsened erythema. She also developed a swollen tongue and shortness of breath. She received Solu-Medrol and is doing better now. This was felt to be due to the as if her mycin Cough is improved. She is eating well. Exam Narrative: WDWN in NAD skin scaly superficial desquamation and erythema throughout head ncat lungs increased expiratory phase, decreased breath sounds at the bases cor reg no rub or gallop abd BS+ nontender and soft ext 1+ bilateral edema. Objective Data Vital Signs Vital Signs: Vital Signs - 24 hr 05/25/21 20:00 05/25/21 21:04 05/25/21 21:28 Temperature 37.1 C Pulse Rate 100 100 97 Respiratory Rate 16 18 18 Blood Pressure 103/61 Pulse Oximetry 95 94 05/25/21 21:37 05/25/21 21:43 05/26/21 01:42 Temperature Pulse Rate 99 68 Respiratory Rate 18 18 22 H Blood Pressure Pulse Oximetry 97 94 05/26/21 02:55 05/26/21 03:05 05/26/21 06:00 Temperature 37.5 C Pulse Rate 96 99 114 H Respiratory Rate 19 18 22 H Blood Pressure 100/58 L Pulse Oximetry 96 05/26/21 08:00 05/26/21 08:13 05/26/21 08:16 Temperature Pulse Rate 101 H 101 H Respiratory Rate 20 14 Blood Pressure Pulse Oximetry 94 94 05/26/21 08:21 05/26/21 11:00 05/26/21 11:12 Temperature Pulse Rate 98 108 H Respiratory Rate 20 33 H Blood Pressure Pulse Oximetry 93 96 05/26/21 11:30 05/26/21 14:00 05/26/21 14:08 Temperature 37.3 C Pulse Rate 83 98 97 Respiratory Rate 24 H 20 20 Blood Pressure 133/78 Pulse Oximetry 99 05/26/21 16:00 Temperature 36.0 C L Pulse Rate 102 H Respiratory Rate 24 H Blood Pressure 127/88 Pulse Oximetry 97 Intake/Output Intake/Output: Intake & Output 05/23/21 05/24/21 05/25/21 05/26/21 23:59 23:59 23:59 23:59 Intake Total 3640 2690 2795 1450 Balance 3640 2690 2795 1450 Meds/Results Medications: Active Medications Generic Name Dose Route Start Last Admin Trade Name Freq PRN Reason Stop Dose Admin Acetaminophen 650 mg 05/22/21 08:43 Acetaminophen 325 Mg Tablet PO Q4H PRN Pain (Scale Score 1-3) Acetaminophen/Codeine Phosphate 1
[2021-05-26] MEDS: ENOXAPARIN 120 MG/0.8 ML SYRINGE 105 MG SUB-Q (19:04)
--- NOTE | 2021-05-26 19:10 | PM.CNPUL ---
Assessment and Plan Additional Plan COPD possible pneumonia allergic reaction to azithromycin obesity without hypoventilation hypoxemia; O2 requirement improved after azithromycin stopped and steroids/antihistamines; weaning, now on 5 L/min metabolic acidosis due to renal failure and hyperchloremia with incomplete respiratory compensation nonocclusive DVT in the right femoral vein PLAN: Wean O2; sat is 89% on room air at 19:30; she had the cannula off. She may have sleep disordered breathing, but right now, with allergic reaction and use of O2, getting an ApneaLink will not add much, and she is not going to qualify for treatment based on the ApneaLink, pito without elevated pCO2. BiPAP can be used p.r.n.however it is not clearly needed. She has no elevated pCO2, no documented CHF, no documented sleep apnea. She might have some dementia, answers questions slowly and with some gaps in memory, however she is really sick, so she gets the benefit of the doubt. No one would have complete cognitive acuity with the medical struggles she is having. Add IV Pepcid and Benadryl. She cannot swallow too easily with parched mucosa. See if she has had sleep evaluation in the past. She may not want to proceed with this, lives in [place] and may have cognitive challenges which would make it difficult for her to cooperate with PAP therapy. History of Present Illness History of Present Illness Consult date: 05/27/21 Requesting physician: Tashia Gould MD Reason for consult: other (possible sleep disorder; COPD and pneumonia) Chief complaint: UTI, acute kidney injury, dehydration, leukocytosi Narrative: cc: possible sleep disorder with BMI 46.8, abnormal ABG; pneumonia, COPD NEW CONSULT: Fay Dean is a 70 year old female who resides in a NH, was admitted with weakness, had severe mixed acid base disorder mainly metabolic acidosis. pH 7.192, HCO3 -14.6, albumin 2.9, Na 134. She was noted to have chest CT 05/24 with : 1. Bibasilar subsegmental atelectasis. 2. Mild cardiomegaly. Lipomatous hypertrophy interatrial septum. 3. Moderate emphysema. She was treated for pneumonia, and with azithromycin last night, she had a severe allergic reaction with tongue swelling, rash covering her whole body, sloughing of her tongue, and increased O2 requirement. She was on 4 L/min when the problem started and was on continuous BiPAP when the allergic reaction kicked in. She was moved to IMU Room 203 because of her deterioration. She has been weaned to 5 L/min. She is now on a bicarbonate drip, O2 5 L/min off the bipap, steroids for the rash, solumedrol 60 mg IV Q 6 hours. . SHe has some memory impairment, tries to answer questions with some gaps in her recall. FOR[facility]LY [facility], [facility] Past Medical History Medical History Abnormal results of kidney function studies Anemia Gout Hypothyroid Family History Family History Father Dementia Mother Alcohol abuse Social History Social History Years smoked: 50 Smoking status: Former smoker Alcohol intake: never Substance use: never Substance use type: does not use Spiritual care concerns: No Meds Home Medications and Allergies Home Medications Medication Instructions Recorded Confirmed Type acetaminophen 650 mg PO Q4H PRN 05/22/21 05/22/21 History acetaminophen-codeine 1 tablet PO TID PRN 05/22/21 05/22/21 History allopurinol 100 mg PO DAILY 05/22/21 05/22/21 History artificial tears solution 1 drp OPHTHALMIC (EYE) TID PRN 05/22/21 05/22/21 History baclofen 5 mg PO BID 05/22/21 05/22/21 History calcitriol 0.25 mcg PO DAILY 05/22/21 05/22/21 History cetirizine [Zyrtec] 10 mg PO DAILY 05/22/21 05/22/21 History cholecalciferol (vitamin D3) 50,000 unit PO WEEKLY 05/22/21 05/22/21 History diphenhydramine HCl 25 mg PO TID PRN 05/22/21 05/22/21 History duloxetine 30 mg PO DAILY 05/22/21
[2021-05-26] MEDS: FLUTICASONE/SALMETEROL 115-21 MCG INHALER 1 PUFF 2 PUFF INHALATION (20:28)
--- NOTE | 2021-05-26 21:03 | PC.NURSE ---
This patient, Fay Dean, was received from [Leisa RN room 247 ] on 05/26/21 at 1052. Patient/family oriented to unit policies and routines
--- NOTE | 2021-05-26 21:04 | PC.NURSE ---
Upon receiving patient, Respiratory removed patients Bipap and Place 15L nasal canula. Patients O2 sats were stable at 97%. I assessed patient and noted Patient tongue was swollen and painful, Patient body was red, peeling skin, small pustule appearing blisters on patient neck, face, and chest. I notified Dr. Gould and doctor Najera of patient condition. Patient was examined by doctor Najera. IV antibiotics were placed on hold.
[2021-05-26] MEDS: TOLNAFTATE 1% POWDER 45 GM BTL 1 APPLIC TOPICAL (21:24)
[2021-05-26] MEDS: FAMOTIDINE 20 MG/2 ML VIAL IV PUSH (21:31)
[2021-05-26 22:44] LABS: Glucose Point of Care 201 mg/dl (65-105)
[2021-05-26] MEDS: diphenhydrAMINE HCl INJ 50 MG/ML VIAL 25 MG IV PUSH (23:22)
--- NOTE | 2021-05-26 23:55 | PCRCNOTE ---
Apnea Link ordered for home BiPAP evaluation. Pt's current supplemental O2 demands are too high for the study to be valid. Study to be performed at a later time.
[2021-05-27] VITALS (17 sets, daily range): BP systolic 104–139; BP diastolic 45–73; PULSE 88–106; RESP 14–22; TEMP 36.1–36.8; O2SAT 92–98
[2021-05-27 00:03] LABS: Add Urine Microscopic? YES; Appearance Urine Turbid (Clear); Bilirubin Urine Negative (Negative); Blood Urine 2+ (Negative); Color Urine Yellow (Yellow); Glucose Urine UA 1+ mg/dL (Negative); Ketones Urine Negative (Negative); Leukocyte Esterase Ur 3+ LEU/UL (Negative); Nitrate Urine Negative (Negative); Protein Urine 2+ mg/dL (Negative); RBC Urine 51-75 /hpf (0-2); Specific Grav Ur 1.013 (1.001-1.035); Squamous Epithelial Cell Urine Many /hpf (Few); Urobilinogen Urine Negative mg/dL (<2.0); WBC Clumps Urine Present /HPF; WBC Urine >75 /hpf
[2021-05-27] MEDS: IPRATROPIUM BR 0.02% INH SOLN 0.5 MG/2.5 ML VIAL INHALATION ×4 (02:18→21:45)
[2021-05-27] MEDS: ALBUTEROL SULFATE NEB 2.5 MG/0.5 ML INH INHALATION ×4 (02:18→21:45)
[2021-05-27 05:40] LABS: Albumin Level 2.7 g/dL (3.5-5.1); Anion Gap 12 mmol/L (8-16); Blood Urea Nitrogen 60 mg/dL (7-17); Calcium 8.1 mg/dL (8.4-10.2); Carbon Dioxide 24 mmol/L (22-30); Chloride 96 mmol/L (98-107); Estimated Glomerular Filt Rate 9; Glucose 188 mg/dL (65-110); Potassium 3.3 mmol/L (3.4-5.0); Sodium 132 mmol/L (137-145)
[2021-05-27 05:48] LABS: Basophils Absolute Auto 0.1 K/mm3 (0.0-0.1); Basophils Percent Auto 0.4 % (0.2-1.2); Eosinophils Absolute Auto 1.2 K/mm3 (0-0.3); Eosinophils Percent Auto 4.3 % (0-4.4); Hematocrit 35.8 % (37.0-47.0); Hemoglobin 11.3 g/dL (12.0-15.0); Immature Granulocyte Absolute 1.27 K/mm3 (0.00-0.031); Immature Granulocyte Percent A 4.5 % (0-0.5); Lymphocytes Absolute Auto 1.33 K/mm3 (0.9-3.2); Lymphocytes Percent Auto 4.7 % (18.3-44.2); Mean Corpuscular HGB Conc 31.6 g/dl (32-36); Mean Corpuscular Hemoglobin 28.5 pg (26-34); Mean Corpuscular Volume 90.4 fl (80-100); Mean Platelet Volume 11.2 fl (7.4-10.4); Monocytes Absolute Auto 0.3 K/mm3 (0.1-0.6); Monocytes Percent Auto 0.9 % (2.6-8.5); Neutrophils Absolute Auto 23.9 K/mm3 (1.3-6.7); Neutrophils Percent Auto 85.2 % (45.5-73.1); Nucleated Red Blood Cells Perc 0.1 % (0.0-0.2); Platelet Count Result 222 k/mm3 (150-375); Red Blood Count 3.96 M/mm3 (4.2-5.4); White Blood Count 28.1 K/mm3 (4.5-10.0)
[2021-05-27 05:55] LABS: Atypical Lymphocytes Present; Platelet Estimate Adequate (Adequate)
[2021-05-27] MEDS: methylPREDNISolone SOD SUCC 125 MG VIAL 60 MG IV PUSH ×2 (06:25→13:08)
[2021-05-27] MEDS: diphenhydrAMINE HCl INJ 50 MG/ML VIAL 25 MG IV PUSH ×2 (06:25→13:09)
[2021-05-27] MEDS: FLUTICASONE/SALMETEROL 115-21 MCG INHALER 1 PUFF 2 PUFF INHALATION ×2 (08:24→22:35)
--- NOTE | 2021-05-27 08:24 | PM.IMPN ---
Progress Note: A&P Assessment and Plan (1) Acute generalized exanthematous pustulosis due to drug: Code(s): L27.0 - Generalized skin eruption due to drugs and medicaments taken internally; T50.905A - Adverse effect of unspecified drugs, medicaments and biological substances, initial encounter Status: Acute Assessment and Plan: Patient developed an acute erythematous eruption with number remove previous stools on a bowel g of edematous painful erythema. She was febrile with significant leukocytosis, mild urethral cytosis after being started on antibiotics. Both penicillin and by who applies have been amply as potential drug culprit. Both antibiotic stopped. Due to complaints of tongue swelling, and concern for airway compromise, she was started on H1 blockers, H2 blockers and IV steroids with improvement of her symptoms. Due to witnessed disordered breathing, pulmonary was consulted; appreciate their recommendations. (2) Arm weakness: Code(s): R29.898 - Other symptoms and signs involving the musculoskeletal system Status: Acute Assessment and Plan: Generalize weakness, more prominent at the at the shoulder and pelvic girdles. CT brain and cervical spine which showed Severe cervical spondylosis. 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 Age-related intracranial findings. Neurology was consulted. Appreciate recommendation. Follow-up ROS, CRP, TSH. CRP was only mildly elevated. TSH is normal. CK level was normal. Follow-up ROS. (3) Fatigue: Code(s): R53.83 - Other fatigue Status: Acute Assessment and Plan: Patient carries a chronic diagnosis of COPD. Patient is not able to remain awake and falls asleep during our encounter. Follow-up apnea link. She was started on noninvasive ventilatory support with BiPAP overnight with modest improvement of her gas exchange. Mentation has improved and now patient awake alert oriented x4. Will order physical therapy and occupational therapy. (4) Leukocytosis: Qualifiers: Leukocytosis type: unspecified Qualified Code(s): D72.829 - Elevated white blood cell count, unspecified Code(s): D72.829 - Elevated white blood cell count, unspecified Status: Acute Assessment and Plan: Leukocytosis is improving at 28,000, elevated neutrophils at 85%. This coincides with the continuation of antibiotics. Blood cultures remain negative to date (5) Acute UTI: Code(s): N39.0 - Urinary tract infection, site not specified Status: Acute Assessment and Plan: Patient has completed 5 days of IV antibiotic with IV Rocephin #5. Urine culture positive for E. Coli, sensitive to Rocephin -Blood cultures Negative to date (6) Acute kidney injury: Code(s): N17.9 - Acute kidney failure, unspecified Status: Acute Assessment and Plan: Acute non oliguric kidney injury in the setting of previously known CKD Baseline creatiine 1.13 October 2020 -4.1 on arrival, no prior for comparison. Mild improvement of creatinine at 3.7. Again for creatinine worsening at 4.7 today. -bicarbonate improved after supplementation. Will stop IV bicarbonate. -Nephrology consulted;appreciate their recommendations. -preserve her upper extremity vasculature aspiration may need renal replacement therapy in her lifetime. Avoid IV line, PICC lines in non dominant arm. (7) Pneumonia: Code(s): J18.9 - Pneumonia, unspecified organism Status: Acute Assessment and Plan: -Pt w/ hx of COPD, reports dry cough -CXR w/ atelectasis vs pneumonia -poor insoiratory effort; no wheezing -patient has completed 5 days of ceftriaxone and 4 days of azithromycin. Due to likel
[2021-05-27 08:46] LABS: Glucose Point of Care 190 mg/dl (65-105)
[2021-05-27] MEDS: guaiFENesin 12 HR 600 MG TABCR PO ×2 (09:04→21:28)
[2021-05-27] MEDS: DULoxetine HCL 30 MG CAPSULE.DR PO (09:04)
[2021-05-27] MEDS: calcitrioL 0.25 MCG CAPSULE PO (09:04)
[2021-05-27] MEDS: MULTIVITAMINS THERAPEUTIC TAB (*BKC) 1 TABLET PO (09:05)
[2021-05-27] MEDS: MICONAZOLE NITRATE 2% CREAM 30 GM TUBE 1 APPLIC TOPICAL ×2 (09:05→21:32)
[2021-05-27] MEDS: TOLNAFTATE 1% POWDER 45 GM BTL 1 APPLIC TOPICAL ×2 (09:05→21:31)
[2021-05-27] MEDS: FAMOTIDINE 20 MG/2 ML VIAL IV PUSH (09:05)
[2021-05-27] MEDS: allopurinoL 100 MG TABLET PO (09:05)
[2021-05-27] MEDS: BACLOFEN 5 MG TABLET PO (09:05)
--- NOTE | 2021-05-27 12:27 | PM.PNNEP ---
Progress Note: A&P Assessment and Plan (1) Abnormal results of kidney function studies: Code(s): R94.4 - Abnormal results of kidney function studies Status: Acute Assessment and Plan: The patient has an elevated creatinine. She had renal failure in 2007. she was seeing Dr. Ron before but has not seen him in a couple of years because of COVID. Her creatinine in October of 2020 was 1.8. renal ultrasound shows smallish kidneys urine electrolytes are non pre renal total CK is normal her creatinine started out at 4.1 and fell to 3.7 but now his on the rise again up to 4.7. 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 She is on steroids. She is eating well. (2) Anemia: Code(s): D64.9 - Anemia, unspecified Status: Acute Assessment and Plan: Hemoglobin is Up and down in the 11s and 12s. Evaluation of a vaginal bleeding per hospitalist. (3) Hypokalemia: Code(s): E87.6 - Hypokalemia Status: Acute Assessment and Plan: Resolved (4) Acute UTI: Code(s): N39.0 - Urinary tract infection, site not specified Status: Acute Assessment and Plan: E coli. UA still shows white cells. She only received the cephalosporin for couple of days. Consider imipenem Since this does not cross react with cephalosporins. (5) Gout: Code(s): M10.9 - Gout, unspecified Status: Acute Assessment and Plan: she is on allopurinol. No symptoms currently. (6) Hypothyroid: Code(s): E03.9 - Hypothyroidism, unspecified Status: Acute Assessment and Plan: She is on supplements. Subjective Date/time seen: 05/27/21 12:27 Interval history: rashes better. Cough is improved. She is eating well. Exam Narrative: WDWN in NAD skin scaly superficial desquamation and erythema throughout , but overall less red. head ncat lungs increased expiratory phase, decreased breath sounds at the bases cor reg no rub or gallop abd BS+ nontender and soft ext 1+ bilateral edema. Objective Data Vital Signs Vital Signs: Vital Signs - 24 hr 05/26/21 14:00 05/26/21 14:08 05/26/21 16:00 Temperature 36.0 C L Pulse Rate 105 H 97 105 H Respiratory Rate 20 20 24 H Blood Pressure 127/88 Pulse Oximetry 95 05/26/21 18:00 05/26/21 20:00 05/26/21 20:29 Temperature 37.0 C Pulse Rate 104 H 101 H 101 H Respiratory Rate 26 H 20 Blood Pressure 144/63 H Pulse Oximetry 96 95 05/26/21 20:37 05/26/21 22:00 05/27/21 00:00 Temperature 36.8 C Pulse Rate 106 H 98 88 Respiratory Rate 20 18 Blood Pressure 104/69 Pulse Oximetry 96 05/27/21 00:50 05/27/21 02:00 05/27/21 02:19 Temperature Pulse Rate 106 H 102 H 103 H Respiratory Rate 16 21 H Blood Pressure Pulse Oximetry 94 95 05/27/21 02:30 05/27/21 04:00 05/27/21 06:00 Temperature 36.8 C Pulse Rate 98 106 H 95 Respiratory Rate 17 14 Blood Pressure 107/59 L Pulse Oximetry 95 05/27/21 08:00 05/27/21 08:24 05/27/21 08:45 Temperature Pulse Rate 100 99 Respiratory Rate 20 Blood Pressure Pulse Oximetry 94 92 05/27/21 08:52 Temperature 36.1 C L Pulse Rate 100 Respiratory Rate 22 H Blood Pressure 139/73 Pulse Oximetry 94 Intake/Output Intake/Output: Intake & Output 05/24/21 05/25/21 05/26/21 05/27/21 23:59 23:59 23:59 23:59 Intake Total 2690 2795 2670 1240 Output Total 450 Balance 2690 2795 2670 790 Meds/Results Medications: Active Medications Generic Name Dose Route Start Last Admin Trade Name Freq PRN Reason Stop Dose Admin Acetaminophen 650 mg 05/22/21 08:43 Acetaminophen 325 Mg Tablet PO Q4H PRN Pain (Scale Score 1-3) Acetaminophen/Codeine Phosphate 1 tab 05/22/21 11:15 05/24/21 10:38 Acetaminophen/Codeine (*Crx) 300/30 Mg Tablet PO 1 tab TID PRN Administration Pain (Scale Score 4-6) A
[2021-05-27 12:41] LABS: Glucose Point of Care 227 mg/dl (65-105)
[2021-05-27] MEDS: ERGOCALCIFEROL 50,000 UNIT CAPSULE 50000 UNITS PO (13:07)
[2021-05-27] MEDS: INSULIN ASPART (*BKC) 100 UNITS/ML SUB-Q (13:07)
--- NOTE | 2021-05-27 14:42 | PC.NURSE ---
This patient, Fay Dean, was transferred to [[id number]] on 05/27/21 at 1440. Personal belongings sent with patient. Report given to [ Julio Quiñonez @ [id number]]. Appropriate documentation sent with patient.
[2021-05-27 18:20] LABS: Glucose Point of Care 126 mg/dl (65-105)
[2021-05-27] MEDS: ACETAMINOPHEN/CODEINE (*CRX) 300/30 MG TABLET 1 TAB PO (21:26)
[2021-05-27] MEDS: ENOXAPARIN 120 MG/0.8 ML SYRINGE 105 MG SUB-Q (21:29)
[2021-05-27 21:44] LABS: Glucose Point of Care 198 mg/dl (65-105)
--- NOTE | 2021-05-27 22:52 | PCRCNOTE ---
Patient refused apnea link asking if she could do it another night. Pt stated she did not feel up to having more hooked up to her.
[2021-05-28] VITALS (13 sets, daily range): BP systolic 115–138; BP diastolic 62–82; PULSE 62–108; RESP 17–20; TEMP 36–36.9; O2SAT 92–95; BMI 50.7
[2021-05-28] MEDS: methylPREDNISolone SOD SUCC 125 MG VIAL 60 MG IV PUSH ×5 (00:50→23:17)
[2021-05-28] MEDS: ALBUTEROL SULFATE NEB 2.5 MG/0.5 ML INH INHALATION ×4 (03:10→20:05)
[2021-05-28] MEDS: IPRATROPIUM BR 0.02% INH SOLN 0.5 MG/2.5 ML VIAL INHALATION ×4 (03:10→20:05)
[2021-05-28] MEDS: LEVOTHYROXINE SODIUM 150 MCG TABLET PO (05:54)
[2021-05-28 08:06] LABS: Glucose Point of Care 180 mg/dl (65-105)
[2021-05-28] MEDS: calcitrioL 0.25 MCG CAPSULE PO (08:26)
[2021-05-28] MEDS: MULTIVITAMINS THERAPEUTIC TAB (*BKC) 1 TABLET PO (08:26)
[2021-05-28] MEDS: allopurinoL 100 MG TABLET PO (08:26)
[2021-05-28] MEDS: BACLOFEN 5 MG TABLET PO (08:26)
[2021-05-28] MEDS: FAMOTIDINE 20 MG/2 ML VIAL IV PUSH ×2 (08:26→21:19)
[2021-05-28] MEDS: DULoxetine HCL 30 MG CAPSULE.DR PO (08:26)
[2021-05-28] MEDS: guaiFENesin 12 HR 600 MG TABCR PO ×2 (08:26→21:19)
[2021-05-28] MEDS: MICONAZOLE NITRATE 2% CREAM 30 GM TUBE 1 APPLIC TOPICAL ×2 (08:27→21:20)
[2021-05-28] MEDS: TOLNAFTATE 1% POWDER 45 GM BTL 1 APPLIC TOPICAL ×2 (08:27→21:20)
[2021-05-28] MEDS: FLUTICASONE/SALMETEROL 115-21 MCG INHALER 1 PUFF 2 PUFF INHALATION ×2 (08:43→20:05)
[2021-05-28] MEDS: ACETAMINOPHEN/CODEINE (*CRX) 300/30 MG TABLET 1 TAB PO (11:40)
[2021-05-28 12:29] LABS: Anion Gap 13 mmol/L (8-16); Blood Urea Nitrogen 74 mg/dL (7-17); Calcium 8.7 mg/dL (8.4-10.2); Carbon Dioxide 23 mmol/L (22-30); Chloride 95 mmol/L (98-107); Estimated Glomerular Filt Rate 10; Glucose 185 mg/dL (65-110); Phosphorus 4.7 mg/dL (2.5-4.5); Sodium 131 mmol/L (137-145)
[2021-05-28 12:34] LABS: Glucose Point of Care 184 mg/dl (65-105)
--- NOTE | 2021-05-28 12:53 | P.PNNP_ITS ---
Progress Note: A&P Assessment and Plan (1) Abnormal results of kidney function studies: Code(s): R94.4 - Abnormal results of kidney function studies Status: Acute Assessment and Plan: * unclear what her baseline creatinine is * apparently had a bout of JESSICA/ARF in 2007 and was following with Dr. Ron but has not seen him recently due to COVID pandemic * creatinine in October 2020 was 1.8mg/dl * evaluation to date: * smallish kidneys by renal ultrasound * urine electrolytes are not prerenal * normal CPK * creatinine fluctuating still -- started out at 4.1 and fell to 3.7, lilian to 4.7 and now 4.3 * suspect acute allergic interstitial nephritis contributing to higher creatinine * currently on steroids * follow repeat labs and UOP (2) Anemia: Code(s): D64.9 - Anemia, unspecified Status: Acute Assessment and Plan: * possibly due to JESSICA +/- CKD and acute illness * follow trend of H/H (3) Hypokalemia: Code(s): E87.6 - Hypokalemia Status: Resolved Assessment and Plan: * resolved/corrected * follow repeat K+ levels (4) Acute UTI: Code(s): N39.0 - Urinary tract infection, site not specified Status: Acute Assessment and Plan: * urine culture with E.coli * s/p IV rocephin and imipenem * blood culture negative (5) Gout: Code(s): M10.9 - Gout, unspecified Status: Acute Assessment and Plan: * no symptoms at this time * on allopurinol Subjective Date/time seen: 05/28/21 12:53 Chart reviewed - assuming care from Dr. Ojeda; significant rash over her entire body but I am told by nursing that is has improved (this is my first time seeing her); she does report some on/off shortness of breath as well; no other acute issues/events overnight or earlier this AM. Exam Narrative: General: WD/WN male/female in NAD Heart: normal S1 and S2; no rub Lungs: decreased breath sounds at bases Abdomen: soft, nontender, nondistended, positive bowel sounds Extremities: no cyanosis or clubbing; 1+ edema Skin: reduced erythema noted in association with skin peeling Objective Data Vital Signs Vital Signs: Vital Signs Temp Pulse Resp BP Pulse Ox 01/21/22 08:44 92 19 05/28/21 08:43 88 95 05/28/21 08:35 89 19 05/28/21 08:00 95 05/28/21 04:44 36.0 C L 62 17 138/82 95 05/28/21 04:00 100 20 95 05/28/21 03:20 94 19 05/28/21 03:12 92 19 05/27/21 21:59 97 20 05/27/21 21:46 101 H 20 05/27/21 21:45 101 H 95 05/27/21 21:44 36.7 C 105 H 17 105/45 L 95 05/27/21 20:00 95 Intake/Output Intake/Output: Intake & Output 05/25/21 05/26/21 05/27/21 05/28/21 23:59 23:59 23:59 23:59 Intake Total 2795 2670 1800 310 Output Total 800 150 Balance 2795 2670 1000 160 Meds/Results Medications: Active Medications Generic Name Dose Route Start Last Admin Trade Name Gill PRN Reason Stop Dose Admin Acetaminophen 650 mg 05/22/21 08:43 Acetaminophen 325 Mg Tablet PO Q4H PRN Pain (Scale Score 1-3) Acetaminophen/Codeine Phosphate 1 tab 05/22/21 11:15 05/28/21 11:40 Acetaminophen/Co
--- NOTE | 2021-05-28 12:53 | PM.PNNEP ---
Progress Note: A&P Assessment and Plan (1) Abnormal results of kidney function studies: Code(s): R94.4 - Abnormal results of kidney function studies Status: Acute Assessment and Plan: unclear what her baseline creatinine is apparently had a bout of JESSICA/ARF in 2007 and was following with Dr. Ron but has not seen him recently due to COVID pandemic creatinine in October 2020 was 1.8mg/dl evaluation to date: smallish kidneys by renal ultrasound urine electrolytes are not prerenal normal CPK creatinine fluctuating still -- started out at 4.1 and fell to 3.7, lilian to 4.7 and now 4.3 suspect acute allergic interstitial nephritis contributing to higher creatinine currently on steroids follow repeat labs and UOP (2) Anemia: Code(s): D64.9 - Anemia, unspecified Status: Acute Assessment and Plan: possibly due to JESSICA +/- CKD and acute illness follow trend of H/H (3) Hypokalemia: Code(s): E87.6 - Hypokalemia Status: Resolved Assessment and Plan: resolved/corrected follow repeat K+ levels (4) Acute UTI: Code(s): N39.0 - Urinary tract infection, site not specified Status: Acute Assessment and Plan: urine culture with E.coli s/p IV rocephin and imipenem blood culture negative (5) Gout: Code(s): M10.9 - Gout, unspecified Status: Acute Assessment and Plan: no symptoms at this time on allopurinol Subjective Date/time seen: 05/28/21 12:53 Chart reviewed - assuming care from Dr. Ojeda; significant rash over her entire body but I am told by nursing that is has improved (this is my first time seeing her); she does report some on/off shortness of breath as well; no other acute issues/events overnight or earlier this AM. Exam Narrative: General: WD/WN male/female in NAD Heart: normal S1 and S2; no rub Lungs: decreased breath sounds at bases Abdomen: soft, nontender, nondistended, positive bowel sounds Extremities: no cyanosis or clubbing; 1+ edema Skin: reduced erythema noted in association with skin peeling Objective Data Vital Signs Vital Signs: Vital Signs Temp Pulse Resp BP Pulse Ox 05/28/21 08:44 92 19 05/28/21 08:43 88 95 01/21/22 08:35 89 19 05/28/21 08:00 95 05/28/21 04:44 36.0 C L 62 17 138/82 95 05/28/21 04:00 100 20 95 05/28/21 03:20 94 19 05/28/21 03:12 92 19 05/27/21 21:59 97 20 05/27/21 21:46 101 H 20 05/27/21 21:45 101 H 95 05/27/21 21:44 36.7 C 105 H 17 105/45 L 95 05/27/21 20:00 95 Intake/Output Intake/Output: Intake & Output 05/25/21 05/26/21 05/27/21 05/28/21 23:59 23:59 23:59 23:59 Intake Total 2795 2670 1800 310 Output Total 800 150 Balance 2795 2670 1000 160 Meds/Results Medications: Active Medications Generic Name Dose Route Start Last Admin Trade Name Freq PRN Reason Stop Dose Admin Acetaminophen 650 mg 05/22/21 08:43 Acetaminophen 325 Mg Tablet PO Q4H PRN Pain (Scale Score 1-3) Acetaminophen/Codeine Phosphate 1 tab 05/22/21 11:15 05/28/21 11:40 Acetaminophen/Codeine (*Crx) 300/30 Mg Tablet PO 1 tab TID PRN Administration Pain (Scale Score 4-6) Albuterol 2.5 mg 05/22/21 14:00 05/28/21 14:09 Albuterol Sulfate Neb 2.5 Mg/0.5 Ml Inh INHALATION 2.5 mg Q6HRT MARIBELL Administration Allopurinol 100 mg 05/22/21 09:00 05/28/21 08:26 Allopurinol 100 Mg Tablet PO 100 mg DAILY MARIBELL Administration Artificial Tears 1 drop 05/22/21 09:11 Artificial Tears Ophth Soln 15 Ml Bottle EACH EYE TID PRN Dry Eyes Baclofen 5 mg 05/27/21 09:00 05/28/21 08:26 Baclofen 5 Mg Tablet PO 5 mg DAILY MARIBELL Administration Calcitriol 0.25 mcg 05/22/21 09:00 05/28/21 08:26 Calcitriol 0.25 Mcg Capsule PO 0.25 mcg DAILY MARIBELL Administration Dextrose 12.5 gm 05/22/21 08:48 Dextrose 50% 25 Gm/50 Ml Syringe IV PUS
--- NOTE | 2021-05-28 13:33 | PM.IMPN ---
Progress Note: A&P Assessment and Plan (1) Acute generalized exanthematous pustulosis due to drug: Code(s): L27.0 - Generalized skin eruption due to drugs and medicaments taken internally; T50.905A - Adverse effect of unspecified drugs, medicaments and biological substances, initial encounter Status: Acute Assessment and Plan: Patient developed an acute erythematous rash with numerous pustules in the setting of edematous painful erythema. She was febrile with significant leukocytosis, mild leucocytosis after being started on antibiotics. Both penicillin and azithromycin have been stopped as potential drug culprit. Due to complaints of tongue swelling, and concern for airway compromise, she was started on H1 blockers, H2 blockers and IV steroids with improvement of her symptoms. Due to witnessed disordered breathing, pulmonary was consulted; appreciate their recommendations. Currently patient in acute respiratory distress with rhonchii. Obtain chest Xray, ABG and apply nebulization. Patient is already on IV steroids. (2) Arm weakness: Code(s): R29.898 - Other symptoms and signs involving the musculoskeletal system Status: Acute Assessment and Plan: Generalize weakness, more prominent at the at the shoulder and pelvic girdles. CT brain and cervical spine which showed Severe cervical spondylosis. 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 Age-related intracranial findings. Neurology was consulted. Weakness is improving.. Start PT/OT. (3) Fatigue: Code(s): R53.83 - Other fatigue Status: Acute Assessment and Plan: Patient carries a chronic diagnosis of COPD. Patient is not able to remain awake and falls asleep during our encounter. Follow-up apnea link. She was started on noninvasive ventilatory support with BiPAP overnight with modest improvement of her gas exchange. Mentation has improved and now patient awake alert oriented x4. Will order physical therapy and occupational therapy. (4) Leukocytosis: Qualifiers: Leukocytosis type: unspecified Qualified Code(s): D72.829 - Elevated white blood cell count, unspecified Code(s): D72.829 - Elevated white blood cell count, unspecified Status: Acute Assessment and Plan: Leukocytosis is improving at 28,000, elevated neutrophils at 85%. This coincides with the continuation of antibiotics. Blood cultures remain negative to date (5) Acute UTI: Code(s): N39.0 - Urinary tract infection, site not specified Status: Acute Assessment and Plan: Patient has completed 5 days of IV antibiotic with IV Rocephin #5. Urine culture positive for E. Coli, sensitive to Rocephin -Blood cultures Negative to date -Continue 2 days of antibiotics with imipenem. (6) Acute kidney injury: Code(s): N17.9 - Acute kidney failure, unspecified Status: Acute Assessment and Plan: Acute non oliguric kidney injury in the setting of previously known CKD Baseline creatiine 1.13 October 2020 -4.1 on arrival, no prior for comparison. Mild improvement of creatinine at 4.3 yesterday after peaking at 4.7. Follow up creatinine level today.. -bicarbonate improved after supplementation and was discontinued. -Nephrology consulted;appreciate their recommendations. -preserve her upper extremity vasculature aspiration may need renal replacement therapy in her lifetime. Avoid IV line, PICC lines in non dominant arm. (7) Pneumonia: Code(s): J18.9 - Pneumonia, unspecified organism Status: Acute Assessment and Plan: -Pt w/ hx of COPD, reports dry cough -CXR w/ atelectasis vs pneumonia -poor insoiratory effort; no wheezing -patient has completed 5 da
[2021-05-28 14:58] LABS: Alanine Aminotransferase 24 U/L (4-35); Albumin Level 2.9 g/dL (3.5-5.1); Alkaline Phosphatase 73 U/L (38-126); Anion Gap 15 mmol/L (8-16); Aspartate Amino Transferase 29 U/L (14-36); Bilirubin,Total 0.8 mg/dL (0.2-1.3); Blood Urea Nitrogen 74 mg/dL (7-17); Calcium 8.5 mg/dL (8.4-10.2); Carbon Dioxide 20 mmol/L (22-30); Chloride 97 mmol/L (98-107); Estimated Glomerular Filt Rate 10; Glucose 184 mg/dL (65-110); Potassium 4.2 mmol/L (3.4-5.0); Sodium 132 mmol/L (137-145)
[2021-05-28 15:19] LABS: Alveolar/Arterial O2 Gradient 56.9 mmHg; Fractional Inspired Oxygen 21 %; HCO3 ABG 24.1 mEq/l (22.0-26.0); Oxygen Content ABG 14.2 %vol (16.0-22.0); PCO2 ABG 41.5 mmHg (35.0-45.0); PO2 FiO2 Ratio Arterial Blood 2.05 %; pH ABG 7.382 (7.350-7.450)
[2021-05-28 15:25] LABS: Modified Allen's Test Pass; Oxygen Saturation ABG 78.1 % (95.0-100.0); Oxyhemoglobin 77.6 % THb (90.0-100.0); PO2 ABG 43.1 mmHg (80.0-100.0); Site Drawn LEFT RADIAL
[2021-05-28 15:26] LABS: Device ROOM AIR
[2021-05-28 16:33] LABS: Basophils Percent Auto 0.2 % (0.2-1.2); Eosinophils Absolute Auto 0.3 K/mm3 (0-0.3); Eosinophils Percent Auto 1.2 % (0-4.4); Hematocrit 37.7 % (37.0-47.0); Immature Granulocyte Absolute 1.23 K/mm3 (0.00-0.031); Immature Granulocyte Percent A 4.8 % (0-0.5); Lymphocytes Absolute Auto 4.14 K/mm3 (0.9-3.2); Lymphocytes Percent Auto 16.1 % (18.3-44.2); Mean Corpuscular HGB Conc 31.8 g/dl (32-36); Mean Corpuscular Hemoglobin 28.9 pg (26-34); Mean Corpuscular Volume 90.8 fl (80-100); Monocytes Absolute Auto 0.9 K/mm3 (0.1-0.6); Monocytes Percent Auto 3.3 % (2.6-8.5); Neutrophils Absolute Auto 19.2 K/mm3 (1.3-6.7); Neutrophils Percent Auto 74.4 % (45.5-73.1); Nucleated Red Blood Cells Absolute Auto 0.1 K/mm3 (0.0-0.012); Nucleated Red Blood Cells Perc 0.5 % (0.0-0.2); Platelet Count Result 285 k/mm3 (150-375); Red Blood Count 4.15 M/mm3 (4.2-5.4); Red Cell Distribution Width 16.2 % (11.5-14.5); White Blood Count 25.7 K/mm3 (4.5-10.0)
[2021-05-28 16:49] LABS: Glucose Point of Care 203 mg/dl (65-105)
[2021-05-28] MEDS: INSULIN ASPART (*BKC) 100 UNITS/ML SUB-Q (16:54)
[2021-05-28] MEDS: ENOXAPARIN 120 MG/0.8 ML SYRINGE 105 MG SUB-Q (16:59)
[2021-05-28 17:12] LABS: Atypical Lymphocytes Present; Platelet Estimate Adequate (Adequate)
[2021-05-28 21:32] LABS: Glucose Point of Care 199 mg/dl (65-105)
[2021-05-29] VITALS (13 sets, daily range): BP systolic 118–133; BP diastolic 63–74; PULSE 81–112; RESP 16–20; TEMP 36.1–36.6; O2SAT 90–97
[2021-05-29] MEDS: ALBUTEROL SULFATE NEB 2.5 MG/0.5 ML INH INHALATION ×4 (01:59→20:21)
[2021-05-29] MEDS: IPRATROPIUM BR 0.02% INH SOLN 0.5 MG/2.5 ML VIAL INHALATION ×4 (02:01→20:22)
[2021-05-29] MEDS: methylPREDNISolone SOD SUCC 125 MG VIAL 60 MG IV PUSH ×2 (05:45→13:26)
[2021-05-29] MEDS: LEVOTHYROXINE SODIUM 150 MCG TABLET PO (05:45)
--- NOTE | 2021-05-29 06:41 | PC.NURSE ---
Patient was non compliant with using O2 administration over night . She was found several times holding nasal cannula in her hands or with it in her mouth. Patient refused to keep mask on for sleep study and study was terminated by the therapist after several attempts to place the mask on the patient.
[2021-05-29 06:47] LABS: Hematocrit 35.6 % (37.0-47.0); Mean Corpuscular HGB Conc 30.9 g/dl (32-36); Mean Corpuscular Hemoglobin 28.9 pg (26-34); Mean Corpuscular Volume 93.4 fl (80-100); Mean Platelet Volume 9.9 fl (7.4-10.4); Platelet Count Result 240 k/mm3 (150-375); Red Blood Count 3.81 M/mm3 (4.2-5.4); Red Cell Distribution Width 15.9 % (11.5-14.5); White Blood Count 23.1 K/mm3 (4.5-10.0)
[2021-05-29 07:02] LABS: Anion Gap 12 mmol/L (8-16); Blood Urea Nitrogen 80 mg/dL (7-17); Calcium 8.8 mg/dL (8.4-10.2); Carbon Dioxide 24 mmol/L (22-30); Chloride 97 mmol/L (98-107); Estimated Glomerular Filt Rate 10; Glucose 178 mg/dL (65-110); Potassium 3.7 mmol/L (3.4-5.0); Sodium 133 mmol/L (137-145)
[2021-05-29] MEDS: FLUTICASONE/SALMETEROL 115-21 MCG INHALER 1 PUFF 2 PUFF INHALATION ×2 (08:20→20:21)
[2021-05-29] MEDS: MULTIVITAMINS THERAPEUTIC TAB (*BKC) 1 TABLET PO (09:12)
[2021-05-29] MEDS: BACLOFEN 5 MG TABLET PO (09:12)
[2021-05-29] MEDS: guaiFENesin 12 HR 600 MG TABCR PO ×2 (09:12→20:48)
[2021-05-29] MEDS: DULoxetine HCL 30 MG CAPSULE.DR PO (09:12)
[2021-05-29] MEDS: allopurinoL 100 MG TABLET PO (09:12)
[2021-05-29] MEDS: calcitrioL 0.25 MCG CAPSULE PO (09:17)
[2021-05-29 09:18] LABS: Glucose Point of Care 207 mg/dl (65-105)
[2021-05-29] MEDS: TOLNAFTATE 1% POWDER 45 GM BTL 1 APPLIC TOPICAL ×2 (09:18→20:48)
[2021-05-29] MEDS: MICONAZOLE NITRATE 2% CREAM 30 GM TUBE 1 APPLIC TOPICAL ×2 (09:18→20:48)
--- NOTE | 2021-05-29 10:05 | PM.IMPN ---
Progress Note: A&P Assessment and Plan (1) Acute generalized exanthematous pustulosis due to drug: Code(s): L27.0 - Generalized skin eruption due to drugs and medicaments taken internally; T50.905A - Adverse effect of unspecified drugs, medicaments and biological substances, initial encounter Status: Acute Assessment and Plan: Patient developed an acute erythematous rash with numerous pustules in the setting of edematous painful erythema. She was febrile with significant leukocytosis, mild leucocytosis after being started on antibiotics. Both penicillin and azithromycin have been stopped as potential drug culprit. Due to complaints of tongue swelling, and concern for airway compromise, she was started on H1 blockers, H2 blockers and IV steroids with improvement of her symptoms. We will stop the steroid today. Due to witnessed disordered breathing, pulmonary was consulted; appreciate their recommendations. Episode of respiratory distress yesterday. Chest x-ray suggests cardiomegaly with mild pulmonary edema. Patient with worsening renal function. Will give Lasix 4 mg IV once. Appreciate Nephrology recommendations. (2) Arm weakness: Code(s): R29.898 - Other symptoms and signs involving the musculoskeletal system Status: Acute Assessment and Plan: Generalize weakness, more prominent at the at the shoulder and pelvic girdles, improving. CT brain and cervical spine which showed Severe cervical spondylosis. 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 Age-related intracranial findings. Neurology was consulted. Weakness is improving. Continue PT/OT. (3) Fatigue: Code(s): R53.83 - Other fatigue Status: Acute Assessment and Plan: Patient carries a chronic diagnosis of COPD. Patient is not able to remain awake and falls asleep during our encounter. She was started on noninvasive ventilatory support with BiPAP at some point with modest improvement of her gas exchange. Mentation has improved and now patient awake alert oriented x4. Patient currently saturating 90% on oxygen at 3 L. continue BiPAP at night and during naps. (4) Leukocytosis: Qualifiers: Leukocytosis type: unspecified Qualified Code(s): D72.829 - Elevated white blood cell count, unspecified Code(s): D72.829 - Elevated white blood cell count, unspecified Status: Acute Assessment and Plan: Leukocytosis is improving at 23,000. This coincides with the continuation of steroids. We will stop the steroids today. Blood cultures remain negative to date (5) Acute UTI: Code(s): N39.0 - Urinary tract infection, site not specified Status: Acute Assessment and Plan: Patient has completed 5 days of IV antibiotic with IV Rocephin #5. Urine culture positive for E. Coli, sensitive to Rocephin -Blood cultures Negative to date -Continue 2 days of antibiotics with imipenem. Will stop imipenem today. (6) Acute kidney injury: Code(s): N17.9 - Acute kidney failure, unspecified Status: Acute Assessment and Plan: Acute non oliguric kidney injury in the setting of previously known CKD Baseline creatiine 1.13 October 2020 -4.1 on arrival, no prior for comparison. Creatinine has plateaued at 4.3 today. Urinary output is modest with half a L overnight. Will do a trial of diuresis with Lasix. Electrolytes are within acceptable range. There is no emergent indication for renal replacement therapy. -bicarbonate improved after supplementation and was discontinued. -Nephrology consulted;appreciate their recommendations. -preserve her upper extremity vasculature aspiration may need renal replacement therapy in her lifetime. Avoid IV line, PICC lines in non dominant arm.
[2021-05-29] MEDS: INSULIN ASPART (*BKC) 100 UNITS/ML SUB-Q ×2 (10:41→13:24)
[2021-05-29 12:10] LABS: Glucose Point of Care 253 mg/dl (65-105)
--- NOTE | 2021-05-29 12:41 | PM.PNNEP ---
Progress Note: A&P Assessment and Plan (1) Abnormal results of kidney function studies: Code(s): R94.4 - Abnormal results of kidney function studies Status: Acute Assessment and Plan: unclear what her baseline creatinine is apparently had a bout of JESSICA/ARF in 2007 and was following with Dr. 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 contributing to higher creatinine currently on steroids follow repeat labs and UOP (2) Anemia: Code(s): D64.9 - Anemia, unspecified Status: Acute Assessment and Plan: possibly due to JESSICA +/- CKD and acute illness follow trend of H/H (3) Hypokalemia: Code(s): E87.6 - Hypokalemia Status: Resolved Assessment and Plan: resolved/corrected follow repeat K+ levels (4) Acute UTI: Code(s): N39.0 - Urinary tract infection, site not specified Status: Acute Assessment and Plan: urine culture with E.coli s/p IV rocephin and imipenem blood culture negative (5) Gout: Code(s): M10.9 - Gout, unspecified Status: Acute Assessment and Plan: no symptoms at this time on allopurinol Will continue to follow. Subjective Date/time seen: 05/29/21 12:41 No acute distress voiced at the time of my visit; rash is still present but seems to be improving with current therapy; kidney function/creatinine stable (not better but not worse today); improving urine output noted in the last 24 hours; no events overnight or earlier this AM. Exam Narrative: General: WD/WN female in NAD Heart: normal S1 and S2; no rub Lungs: decreased breath sounds at bases Abdomen: soft, nontender, nondistended, positive bowel sounds Extremities: no cyanosis or clubbing; 1+ edema Skin: slow improvement in appearance/erythema Objective Data Vital Signs Vital Signs: Vital Signs Temp Pulse Resp BP Pulse Ox 05/29/21 08:25 91 20 05/29/21 08:20 94 05/29/21 08:17 87 18 05/29/21 08:00 94 05/29/21 06:00 36.6 C 99 20 118/63 91 05/29/21 01:59 88 18 05/28/21 22:00 36.6 C 108 H 20 135/62 92 05/28/21 19:26 86 18 05/28/21 19:25 92 20 95 Intake/Output Intake/Output: Intake & Output 05/26/21 05/27/21 05/28/21 05/29/21 23:59 23:59 23:59 23:59 Intake Total 2670 1800 730 550 Output Total 800 550 400 Balance 2670 1000 180 150 Meds/Results Medications: Active Medications Generic Name Dose Route Start Last Admin Trade Name Freq PRN Reason Stop Dose Admin Acetaminophen 650 mg 05/22/21 08:43 Acetaminophen 325 Mg Tablet PO Q4H PRN Pain (Scale Score 1-3) Acetaminophen/Codeine Phosphate 1 tab 05/22/21 11:15 05/28/21 11:40 Acetaminophen/Codeine (*Crx) 300/30 Mg Tablet PO 1 tab TID PRN Administration Pain (Scale Score 4-6) Albuterol 2.5 mg 05/22/21 14:00 05/29/21 14:00 Albuterol Sulfate Neb 2.5 Mg/0.5 Ml Inh INHALATION 2.5 mg Q6HRT MARIBELL Administration Allopurinol 100 mg 05/22/21 09:00 05/29/21 09:12 Allopurinol 100 Mg Tablet PO 100 mg DAILY MARIBELL Administration Artificial Tears 1 drop 05/22/21 09:11 Artificial Tears Ophth Soln 15 Ml Bottle EACH EYE TID PRN Dry Eyes Baclofen 5 mg 05/27/21 09:00 05/29/21 09:12 Baclofen 5 Mg Tablet PO 5 mg DAILY MARIBELL Administration Calcitriol 0.25 mcg 05/22/21 09:00 05/29/21 09:17 Calcitriol 0.25 Mcg Capsule PO 0.25 mcg DAILY MARIBELL Administration Dextrose 12.5 gm 05/22/21 08:48 Dextrose 50% 25 Gm/50 Ml Syringe IV PUSH PRN PRN Hypoglycemia Protocol Duloxetine HCl
--- NOTE | 2021-05-29 12:41 | P.PNNP_ITS ---
Progress Note: A&P Assessment and Plan (1) Abnormal results of kidney function studies: Code(s): R94.4 - Abnormal results of kidney function studies Status: Acute Assessment and Plan: * unclear what her baseline creatinine is * apparently had a bout of JESSICA/ARF in 2007 and was following with Dr. 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 * currently on steroids * follow repeat labs and UOP (2) Anemia: Code(s): D64.9 - Anemia, unspecified Status: Acute Assessment and Plan: * possibly due to JESSICA +/- CKD and acute illness * follow trend of H/H (3) Hypokalemia: Code(s): E87.6 - Hypokalemia Status: Resolved Assessment and Plan: * resolved/corrected * follow repeat K+ levels (4) Acute UTI: Code(s): N39.0 - Urinary tract infection, site not specified Status: Acute Assessment and Plan: * urine culture with E.coli * s/p IV rocephin and imipenem * blood culture negative (5) Gout: Code(s): M10.9 - Gout, unspecified Status: Acute Assessment and Plan: * no symptoms at this time * on allopurinol Will continue to follow. Subjective Date/time seen: 05/29/21 12:41 No acute distress voiced at the time of my visit; rash is still present but s eems to be improving with current therapy; kidney function/creatinine stable (not better but not worse today); improving urine output noted in the last 24 hours; no events overnight or earlier this AM. Exam Narrative: General: WD/WN female in NAD Heart: normal S1 and S2; no rub Lungs: decreased breath sounds at bases Abdomen: soft, nontender, nondistended, positive bowel sounds Extremities: no cyanosis or clubbing; 1+ edema Skin: slow improvement in appearance/erythema Objective Data Vital Signs Vital Signs: Vital Signs Temp Pulse Resp BP Pulse Ox 05/29/21 08:25 91 20 05/29/21 08:20 94 05/29/21 08:17 87 18 05/29/21 08:00 94 05/29/21 06:00 36.6 C 99 20 118/63 91 05/29/21 01:59 88 18 05/28/21 22:00 36.6 C 108 H 20 135/62 92 05/28/21 19:26 86 18 05/28/21 19:25 92 20 95 Intake/Output Intake/Output: Intake & Output 05/26/21 05/27/21 05/28/21 05/29/21 23:59 23:59 23:59 23:59 Intake Total 2670 1800 730 550 Output Total 800 550 400 Balance 2670 1000 180 150 Meds/Results Medications: Active Medications Generic Name Dose Route Start Last Admin Trade Name Freq PRN Reason Stop Dose Admin Acetaminophen 650 mg 05/22/21 08:43 Acetaminophen 325 Mg Tablet PO Q4H PRN Pain (Scale Score 1-3) Acetaminophen/Codeine Phosphate 1 tab 05/22/21 11:15 05/28/21 11:40 Acetaminophen/Codeine (*Crx) 300/30 Mg Tablet PO 1 tab TID PRN Administration P
[2021-05-29 17:09] LABS: Glucose Point of Care 180 mg/dl (65-105)
[2021-05-29] MEDS: FAMOTIDINE 20 MG/2 ML VIAL IV PUSH (20:47)
[2021-05-29] MEDS: ENOXAPARIN 120 MG/0.8 ML SYRINGE 105 MG SUB-Q (20:57)
[2021-05-29] MEDS: FUROSEMIDE INJ 40 MG/4 ML VIAL IV PUSH (20:58)
[2021-05-29 21:56] LABS: Glucose Point of Care 294 mg/dl (65-105)
[2021-05-30] VITALS (9 sets, daily range): BP systolic 128–167; BP diastolic 76–82; PULSE 94–110; RESP 16–22; TEMP 36–36.9; O2SAT 92–98
[2021-05-30] MEDS: IPRATROPIUM BR 0.02% INH SOLN 0.5 MG/2.5 ML VIAL INHALATION ×4 (02:28→20:48)
[2021-05-30] MEDS: ALBUTEROL SULFATE NEB 2.5 MG/0.5 ML INH INHALATION ×4 (02:28→20:48)
[2021-05-30] MEDS: LEVOTHYROXINE SODIUM 150 MCG TABLET PO (05:43)
[2021-05-30 08:06] LABS: Hematocrit 38.3 % (37.0-47.0); Hemoglobin 11.1 g/dL (12.0-15.0); Mean Corpuscular Hemoglobin 29.2 pg (26-34); Mean Corpuscular Volume 100.8 fl (80-100); Mean Platelet Volume 10.6 fl (7.4-10.4); Platelet Count Result 167 k/mm3 (150-375); Red Cell Distribution Width 16.1 % (11.5-14.5); White Blood Count 19.8 K/mm3 (4.5-10.0)
[2021-05-30 08:21] LABS: Glucose Point of Care 168 mg/dl (65-105)
[2021-05-30] MEDS: BACLOFEN 5 MG TABLET PO (08:29)
[2021-05-30] MEDS: TOLNAFTATE 1% POWDER 45 GM BTL 1 APPLIC TOPICAL ×2 (08:29→20:35)
[2021-05-30] MEDS: MICONAZOLE NITRATE 2% CREAM 30 GM TUBE 1 APPLIC TOPICAL ×2 (08:29→20:36)
[2021-05-30] MEDS: allopurinoL 100 MG TABLET PO (08:29)
[2021-05-30] MEDS: MULTIVITAMINS THERAPEUTIC TAB (*BKC) 1 TABLET PO (08:29)
[2021-05-30] MEDS: guaiFENesin 12 HR 600 MG TABCR PO ×2 (08:29→20:35)
[2021-05-30] MEDS: calcitrioL 0.25 MCG CAPSULE PO (08:29)
[2021-05-30] MEDS: FAMOTIDINE 20 MG/2 ML VIAL IV PUSH ×2 (08:30→20:35)
[2021-05-30] MEDS: DULoxetine HCL 30 MG CAPSULE.DR PO (08:30)
[2021-05-30] MEDS: FLUTICASONE/SALMETEROL 115-21 MCG INHALER 1 PUFF 2 PUFF INHALATION ×2 (10:17→20:48)
--- NOTE | 2021-05-30 10:17 | PCRCNOTE ---
Window of time for administration has passed. See next scheduled administration.
--- NOTE | 2021-05-30 11:12 | PM.IMPN ---
Progress Note: A&P Assessment and Plan (1) Acute generalized exanthematous pustulosis due to drug: Code(s): L27.0 - Generalized skin eruption due to drugs and medicaments taken internally; T50.905A - Adverse effect of unspecified drugs, medicaments and biological substances, initial encounter Status: Acute Assessment and Plan: Resolving rash, with diffuse desquamative rash revealing healthy underlying skin. Patient developed an acute erythematous rash with numerous pustules in the setting of edematous painful erythema. She was febrile with significant leukocytosis, mild leucocytosis after being started on antibiotics. Both penicillin and azithromycin have been stopped as potential drug culprit. Due to complaints of tongue swelling, and concern for airway compromise, she was started on H1 blockers, H2 blockers and IV steroids with improvement of her symptoms. Is blockers and IV steroids. Due to witnessed disordered breathing, pulmonary was consulted; appreciate their recommendations. Episode of respiratory distress May 28, 2021. Chest x-ray suggested cardiomegaly with mild pulmonary edema. Patient with worsening renal function. A single dose IV Lasix was given. On today's lab the creatinine is improving from 4.3-3.7. Electrolytes are within acceptable range. Patient made at least 1 L of urine. Oxygen requirement is at baseline 3 L. Will obtain chest x-ray. There is no emergent indication for renal replacement therapy. Appreciate Nephrology recommendations.. (2) Arm weakness: Code(s): R29.898 - Other symptoms and signs involving the musculoskeletal system Status: Acute Assessment and Plan: Generalized weakness, more prominent at the at the shoulder and pelvic girdles, improving. CT brain and cervical spine which showed Severe cervical spondylosis. 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 Age-related intracranial findings. Neurology was consulted. Weakness is improving. Continue PT/OT. (3) Fatigue: Code(s): R53.83 - Other fatigue Status: Acute Assessment and Plan: Patient carries a chronic diagnosis of COPD. Patient is not able to remain awake and falls asleep during our encounter. She was started on noninvasive ventilatory support with BiPAP at some point with modest improvement of her gas exchange. Mentation has improved and now patient awake alert oriented x4. Patient currently saturating 90% on oxygen at 3 L. continue BiPAP at night and during naps. (4) Leukocytosis: Qualifiers: Leukocytosis type: unspecified Qualified Code(s): D72.829 - Elevated white blood cell count, unspecified Code(s): D72.829 - Elevated white blood cell count, unspecified Status: Acute Assessment and Plan: Leukocytosis is improving at 23,000. This coincides with the continuation of steroids. It IV steroids were stopped [id number]. WBC is improving from 23.1-19.8 today. Blood cultures remain negative to date (5) Acute UTI: Code(s): N39.0 - Urinary tract infection, site not specified Status: Acute Assessment and Plan: Patient has completed 5 days of IV antibiotic with IV Rocephin #5. Urine culture positive for E. Coli, sensitive to Rocephin -Blood cultures Negative to date -completed 2 days of antibiotics with imipenem. (6) Acute kidney injury: Code(s): N17.9 - Acute kidney failure, unspecified Status: Acute Assessment and Plan: Acute non oliguric kidney injury in the setting of previously known CKD Baseline creatiine 1.13 October 2020 -4.1 on arrival, no prior for comparison. Creatinine is improving down to 3.7. Urinary output is better with 1 L. This may announce renal recovery.. Urinary output is better with 1 L o
[2021-05-30 11:14] LABS: Anion Gap 13 mmol/L (8-16); Blood Urea Nitrogen 87 mg/dL (7-17); Calcium 8.9 mg/dL (8.4-10.2); Carbon Dioxide 24 mmol/L (22-30); Chloride 96 mmol/L (98-107); Estimated Glomerular Filt Rate 12; Glucose 211 mg/dL (65-110); Potassium 3.6 mmol/L (3.4-5.0); Sodium 133 mmol/L (137-145)
[2021-05-30] MEDS: INSULIN ASPART (*BKC) 100 UNITS/ML SUB-Q (12:10)
[2021-05-30 12:23] LABS: Glucose Point of Care 263 mg/dl (65-105)
--- NOTE | 2021-05-30 12:30 | PM.PNNEP ---
Progress Note: A&P Assessment and Plan (1) Abnormal results of kidney function studies: Code(s): R94.4 - Abnormal results of kidney function studies Status: Acute Assessment and Plan: unclear what her baseline creatinine is apparently had a bout of JESSICA/ARF in 2007 and was following with Dr. 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 contributing to higher creatinine currently on steroids follow repeat labs and UOP (2) Anemia: Code(s): D64.9 - Anemia, unspecified Status: Acute Assessment and Plan: possibly due to JESSICA +/- CKD and acute illness follow trend of H/H (3) Hypokalemia: Code(s): E87.6 - Hypokalemia Status: Resolved Assessment and Plan: resolved/corrected follow repeat K+ levels (4) Acute UTI: Code(s): N39.0 - Urinary tract infection, site not specified Status: Acute Assessment and Plan: urine culture with E.coli s/p IV rocephin and imipenem blood culture negative (5) Gout: Code(s): M10.9 - Gout, unspecified Status: Acute Assessment and Plan: no symptoms at this time on allopurinol Will continue to follow. Subjective Date/time seen: 05/30/21 12:30 Appears to be doing reasonably well; overall, skin condition appears to be slowly improving; reasonable urine output noted; no acute complaints voiced at this time; no issues/events overnight or earlier this AM. Exam Narrative: General: WD/WN female in NAD Heart: normal S1 and S2; no rub Lungs: decreased breath sounds at bases Abdomen: soft, nontender, nondistended, positive bowel sounds Extremities: no cyanosis or clubbing; 1+ edema Skin: diffuse desquamation present Objective Data Vital Signs Vital Signs: Vital Signs Temp Pulse Resp BP Pulse Ox 05/30/21 09:10 94 05/30/21 06:00 36.0 C L 97 22 H 128/82 94 05/30/21 02:41 101 H 20 05/30/21 02:32 99 20 05/29/21 22:00 36.1 C L 97 20 131/64 90 05/29/21 20:31 110 H 18 05/29/21 20:29 95 05/29/21 20:24 112 H 18 Intake/Output Intake/Output: Intake & Output 05/27/21 05/28/21 05/29/21 05/30/21 23:59 23:59 23:59 23:59 Intake Total 1800 730 550 690 Output Total 901 034 5945 1000 Balance 1000 180 -500 -310 Meds/Results Medications: Active Medications Generic Name Dose Route Start Last Admin Trade Name Freq PRN Reason Stop Dose Admin Acetaminophen 650 mg 05/22/21 08:43 Acetaminophen 325 Mg Tablet PO Q4H PRN Pain (Scale Score 1-3) Acetaminophen/Codeine Phosphate 1 tab 05/22/21 11:15 05/28/21 11:40 Acetaminophen/Codeine (*Crx) 300/30 Mg Tablet PO 1 tab TID PRN Administration Pain (Scale Score 4-6) Albuterol 2.5 mg 05/22/21 14:00 05/30/21 13:43 Albuterol Sulfate Neb 2.5 Mg/0.5 Ml Inh INHALATION 2.5 mg Q6HRT MARIBELL Administration Allopurinol 100 mg 05/22/21 09:00 05/30/21 08:29 Allopurinol 100 Mg Tablet PO 100 mg DAILY MARIBELL Administration Artificial Tears 1 drop 05/22/21 09:11 Artificial Tears Ophth Soln 15 Ml Bottle EACH EYE TID PRN Dry Eyes Baclofen 5 mg 05/27/21 09:00 05/30/21 08:29 Baclofen 5 Mg Tablet PO 5 mg DAILY MARIBELL Administration Calcitriol 0.25 mcg 05/22/21 09:00 05/30/21 08:29 Calcitriol 0.25 Mcg Capsule PO 0.25 mcg DAILY MARIBELL Administration Dextrose 12.5 gm 05/22/21 08:48 Dextrose 50% 25 Gm/50 Ml Syringe IV PUSH PRN PRN Hypoglycemia Protocol Duloxetine HCl 30 mg 05/22/21 09:00 05/30/21 08:30 Duloxetine Hcl 30 Mg Capsule.Dr PO 30 mg DAILY SC
--- NOTE | 2021-05-30 12:30 | P.PNNP_ITS ---
Progress Note: A&P Assessment and Plan (1) Abnormal results of kidney function studies: Code(s): R94.4 - Abnormal results of kidney function studies Status: Acute Assessment and Plan: * unclear what her baseline creatinine is * apparently had a bout of JESSICA/ARF in 2007 and was following with Dr. 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 * currently on steroids * follow repeat labs and UOP (2) Anemia: Code(s): D64.9 - Anemia, unspecified Status: Acute Assessment and Plan: * possibly due to JESSICA +/- CKD and acute illness * follow trend of H/H (3) Hypokalemia: Code(s): E87.6 - Hypokalemia Status: Resolved Assessment and Plan: * resolved/corrected * follow repeat K+ levels (4) Acute UTI: Code(s): N39.0 - Urinary tract infection, site not specified Status: Acute Assessment and Plan: * urine culture with E.coli * s/p IV rocephin and imipenem * blood culture negative (5) Gout: Code(s): M10.9 - Gout, unspecified Status: Acute Assessment and Plan: * no symptoms at this time * on allopurinol Will continue to follow. Subjective Date/time seen: 05/30/21 12:30 Appears to be doing reasonably well; overall, skin condition appears to be sl owly improving; reasonable urine output noted; no acute complaints voiced at this time; no issues/events overnight or earlier this AM. Exam Narrative: General: WD/WN female in NAD Heart: normal S1 and S2; no rub Lungs: decreased breath sounds at bases Abdomen: soft, nontender, nondistended, positive bowel sounds Extremities: no cyanosis or clubbing; 1+ edema Skin: diffuse desquamation present Objective Data Vital Signs Vital Signs: Vital Signs Temp Pulse Resp BP Pulse Ox 05/30/21 09:10 94 05/30/21 06:00 36.0 C L 97 22 H 128/82 94 05/30/21 02:41 101 H 20 05/30/21 02:32 99 20 05/29/21 22:00 36.1 C L 97 20 131/64 90 05/29/21 20:31 110 H 18 05/29/21 20:29 95 05/29/21 20:24 112 H 18 Intake/Output Intake/Output: Intake & Output 05/27/21 05/28/21 05/29/21 05/30/21 23:59 23:59 23:59 23:59 Intake Total 1800 730 550 690 Output Total 212 137 9474 1000 Balance 1000 180 -500 -310 Meds/Results Medications: Active Medications Generic Name Dose Route Start Last Admin Trade Name Freq PRN Reason Stop Dose Admin Acetaminophen 650 mg 05/22/21 08:43 Acetaminophen 325 Mg Tablet PO Q4H PRN Pain (Scale Score 1-3) Acetaminophen/Codeine Phosphate 1 tab 05/22/21 11:15 05/28/21 11:40 Acetaminophen/Codeine (*Crx) 300/30 Mg Tablet PO 1 tab TID PRN Administration Pain (Scale Score 4-6) Albuterol 2.5 mg 05/22/21 14:00 05/30/21 13:43 Albuterol Sulf
[2021-05-30] MEDS: ENOXAPARIN 120 MG/0.8 ML SYRINGE 105 MG SUB-Q (17:14)
[2021-05-30 17:18] LABS: Glucose Point of Care 127 mg/dl (65-105)
[2021-05-30 20:36] LABS: Glucose Point of Care 145 mg/dl (65-105)
[2021-05-31] VITALS (12 sets, daily range): BP systolic 145–156; BP diastolic 82–83; PULSE 84–99; RESP 16–20; TEMP 36.7–36.8; O2SAT 92–95; BMI 50.8
[2021-05-31] MEDS: IPRATROPIUM BR 0.02% INH SOLN 0.5 MG/2.5 ML VIAL INHALATION ×4 (02:29→20:06)
[2021-05-31] MEDS: ALBUTEROL SULFATE NEB 2.5 MG/0.5 ML INH INHALATION ×4 (02:29→20:05)
[2021-05-31] MEDS: LEVOTHYROXINE SODIUM 150 MCG TABLET PO (06:28)
[2021-05-31 08:18] LABS: Glucose Point of Care 138 mg/dl (65-105)
[2021-05-31] MEDS: guaiFENesin 12 HR 600 MG TABCR PO ×2 (08:45→22:08)
[2021-05-31] MEDS: TOLNAFTATE 1% POWDER 45 GM BTL 1 APPLIC TOPICAL ×2 (08:45→22:10)
[2021-05-31] MEDS: FAMOTIDINE 20 MG/2 ML VIAL IV PUSH ×2 (08:45→22:09)
[2021-05-31] MEDS: MULTIVITAMINS THERAPEUTIC TAB (*BKC) 1 TABLET PO (08:45)
[2021-05-31] MEDS: MICONAZOLE NITRATE 2% CREAM 30 GM TUBE 1 APPLIC TOPICAL ×2 (08:45→22:10)
[2021-05-31] MEDS: DULoxetine HCL 30 MG CAPSULE.DR PO (08:45)
[2021-05-31] MEDS: BACLOFEN 5 MG TABLET PO (08:45)
[2021-05-31] MEDS: allopurinoL 100 MG TABLET PO (08:45)
[2021-05-31] MEDS: calcitrioL 0.25 MCG CAPSULE PO (08:45)
[2021-05-31] MEDS: FLUTICASONE/SALMETEROL 115-21 MCG INHALER 1 PUFF 2 PUFF INHALATION ×2 (09:10→20:05)
[2021-05-31 09:39] LABS: Hematocrit 35.7 % (37.0-47.0); Mean Corpuscular HGB Conc 30.8 g/dl (32-36); Mean Corpuscular Hemoglobin 29.5 pg (26-34); Mean Corpuscular Volume 95.7 fl (80-100); Mean Platelet Volume 10.1 fl (7.4-10.4); Platelet Count Result 188 k/mm3 (150-375); Red Blood Count 3.73 M/mm3 (4.2-5.4); Red Cell Distribution Width 16.1 % (11.5-14.5); White Blood Count 22.9 K/mm3 (4.5-10.0)
[2021-05-31 09:50] LABS: Anion Gap 9 mmol/L (8-16); Blood Urea Nitrogen 82 mg/dL (7-17); Calcium 8.6 mg/dL (8.4-10.2); Carbon Dioxide 30 mmol/L (22-30); Chloride 99 mmol/L (98-107); Estimated Glomerular Filt Rate 14; Glucose 104 mg/dL (65-110); Potassium 3.5 mmol/L (3.4-5.0); Sodium 138 mmol/L (137-145)
[2021-05-31 11:51] LABS: Glucose Point of Care 127 mg/dl (65-105)
[2021-05-31] MEDS: methylPREDNISolone SOD SUCC 40 MG VIAL IV PUSH ×2 (13:52→22:10)
--- NOTE | 2021-05-31 15:24 | PM.PNNEP ---
Progress Note: A&P Assessment and Plan (1) Abnormal results of kidney function studies: Code(s): R94.4 - Abnormal results of kidney function studies Status: Acute Assessment and Plan: unclear what her baseline creatinine is apparently had a bout of JESSICA/ARF in 2007 and was following with Dr. 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 currently on steroids follow repeat labs and UOP (2) Anemia: Code(s): D64.9 - Anemia, unspecified Status: Acute Assessment and Plan: possibly due to JESSICA +/- CKD and acute illness follow trend of H/H (3) Hypokalemia: Code(s): E87.6 - Hypokalemia Status: Resolved Assessment and Plan: resolved/corrected follow repeat K+ levels (4) Acute UTI: Code(s): N39.0 - Urinary tract infection, site not specified Status: Acute Assessment and Plan: urine culture with E.coli s/p IV rocephin and imipenem blood culture negative (5) Gout: Code(s): M10.9 - Gout, unspecified Status: Acute Assessment and Plan: no symptoms at this time on allopurinol Will continue to follow. Subjective Date/time seen: 05/31/21 15:24 Renal function continues to slowly improve with increasing urine output; slow and steady improvement in diffuse skin rash; some improvement in lower extremity swelling/edema; no other issues/events overnight or earlier this morning. Exam Narrative: General: WD/WN female in NAD Heart: normal S1 and S2; no rub Lungs: decreased breath sounds at bases Abdomen: soft, nontender, nondistended, positive bowel sounds Extremities: no cyanosis or clubbing; 1+ edema Skin: diffuse desquamation noted Objective Data Vital Signs Vital Signs: Vital Signs Temp Pulse Resp BP Pulse Ox 05/31/21 14:47 86 20 05/31/21 14:37 84 18 05/31/21 14:00 36.7 C 90 16 145/83 H 94 05/31/21 09:25 98 20 05/31/21 09:05 96 18 05/31/21 08:00 98 20 95 05/31/21 05:40 36.8 C 92 16 147/82 H 95 05/31/21 02:38 87 18 05/31/21 02:30 84 16 05/30/21 22:00 36.9 C 110 H 16 167/76 H 98 05/30/21 21:01 94 18 05/30/21 20:49 95 18 94 Intake/Output Intake/Output: Intake & Output 05/28/21 05/29/21 05/30/21 05/31/21 23:59 23:59 23:59 23:59 Intake Total 730 940 644 1795 Output Total 550 1050 1800 850 Balance 180 500 -1110 190 Meds/Results Medications: Active Medications Generic Name Dose Route Start Last Admin Trade Name Freq PRN Reason Stop Dose Admin Acetaminophen 650 mg 05/22/21 08:43 Acetaminophen 325 Mg Tablet PO Q4H PRN Pain (Scale Score 1-3) Acetaminophen/Codeine Phosphate 1 tab 05/22/21 11:15 05/28/21 11:40 Acetaminophen/Codeine (*Crx) 300/30 Mg Tablet PO 1 tab TID PRN Administration Pain (Scale Score 4-6) Albuterol 2.5 mg 05/22/21 14:00 05/31/21 14:34 Albuterol Sulfate Neb 2.5 Mg/0.5 Ml Inh INHALATION 2.5 mg Q6HRT MARIBELL Administration Allopurinol 100 mg 05/22/21 09:00 05/31/21 08:45 Allopurinol 100 Mg Tablet PO 100 mg DAILY MARIBELL Administration Artificial Tears 1 drop 05/22/21 09:11 Artificial Tears Ophth Soln 15 Ml Bottle EACH EYE TID PRN Dry Eyes Baclofen 5 mg 05/27/21 09:00 05/31/21 08:45 Baclofen 5 Mg Tablet PO 5 mg DAILY MARIBELL Administration Calcitriol 0.25 mcg 05/22/21 09:00 05/31/21 08:45 Calcitriol 0.25 Mcg Capsule PO 0.25 mcg DAILY MARIBELL Administration Dextrose 12.5 gm 05/22/21 08:48 Dextrose 50% 25 Gm/50 Ml Syringe IV PUSH PRN PRN Hypoglycemia Protocol Duloxetine HCl 30 m
--- NOTE | 2021-05-31 15:24 | P.PNNP_ITS ---
Progress Note: A&P Assessment and Plan (1) Abnormal results of kidney function studies: Code(s): R94.4 - Abnormal results of kidney function studies Status: Acute Assessment and Plan: * unclear what her baseline creatinine is * apparently had a bout of JESSICA/ARF in 2007 and was following with Dr. 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 * currently on steroids * follow repeat labs and UOP (2) Anemia: Code(s): D64.9 - Anemia, unspecified Status: Acute Assessment and Plan: * possibly due to JESSICA +/- CKD and acute illness * follow trend of H/H (3) Hypokalemia: Code(s): E87.6 - Hypokalemia Status: Resolved Assessment and Plan: * resolved/corrected * follow repeat K+ levels (4) Acute UTI: Code(s): N39.0 - Urinary tract infection, site not specified Status: Acute Assessment and Plan: * urine culture with E.coli * s/p IV rocephin and imipenem * blood culture negative (5) Gout: Code(s): M10.9 - Gout, unspecified Status: Acute Assessment and Plan: * no symptoms at this time * on allopurinol Will continue to follow. Subjective Date/time seen: 05/31/21 15:24 Renal function continues to slowly improve with increasing urine output; slow and steady improvement in diffuse skin rash; some improvement in lower extremity swelling/edema; no other issues/events overnight or earlier this morning. Exam Narrative: General: WD/WN female in NAD Heart: normal S1 and S2; no rub Lungs: decreased breath sounds at bases Abdomen: soft, nontender, nondistended, positive bowel sounds Extremities: no cyanosis or clubbing; 1+ edema Skin: diffuse desquamation noted Objective Data Vital Signs Vital Signs: Vital Signs Temp Pulse Resp BP Pulse Ox 05/31/21 14:47 86 20 05/31/21 14:37 84 18 05/31/21 14:00 36.7 C 90 16 145/83 H 94 05/31/21 09:25 98 20 05/31/21 09:05 96 18 05/31/21 08:00 98 20 95 05/31/21 05:40 36.8 C 92 16 147/82 H 95 05/31/21 02:38 87 18 05/31/21 02:30 84 16 05/30/21 22:00 36.9 C 110 H 16 167/76 H 98 05/30/21 21:01 94 18 05/30/21 20:49 95 18 94 Intake/Output Intake/Output: Intake & Output 05/28/21 05/29/21 05/30/21 05/31/21 23:59 23:59 23:59 23:59 Intake Total 730 958 298 9072 Output Total 550 1050 1800 850 Balance 180 500 -1110 190 Meds/Results Medications: Active Medications Generic Name Dose Route Start Last Admin Trade Name Freq PRN Reason Stop Dose Admin Acetaminophen 650 mg 05/22/21 08:43 Acetaminophen 325 Mg Tablet PO Q4H PRN Pain (Scale Score 1-3) Acetaminophen/Codeine Phosphate 1 tab 05/22/21 11:15 05/28/21 11:40 Acetaminophen/Codeine (*Crx) 300/30 Mg Tablet PO 1 tab TID PRN Administr
[2021-05-31 16:24] LABS: Glucose Point of Care 194 mg/dl (65-105)
[2021-05-31] MEDS: ENOXAPARIN 120 MG/0.8 ML SYRINGE 105 MG SUB-Q (18:00)
--- NOTE | 2021-05-31 18:05 | PM.IMPN ---
Progress Note: A&P Assessment and Plan (1) Acute generalized exanthematous pustulosis due to drug: Code(s): L27.0 - Generalized skin eruption due to drugs and medicaments taken internally; T50.905A - Adverse effect of unspecified drugs, medicaments and biological substances, initial encounter Status: Acute Assessment and Plan: Resolving rash, with diffuse desquamative rash revealing healthy underlying skin. Patient developed an acute erythematous rash with numerous pustules in the setting of edematous painful erythema. She was febrile with significant leukocytosis, mild leucocytosis after being started on antibiotics. Both penicillin and azithromycin have been stopped as potential drug culprit. Due to complaints of tongue swelling, and concern for airway compromise, she was started on H1 blockers, H2 blockers and IV steroids with improvement of her symptoms. Is blockers and IV steroids. Due to witnessed disordered breathing, pulmonary was consulted; appreciate their recommendations. Episode of respiratory distress May 28, 2021. Chest x-ray suggested cardiomegaly with mild pulmonary edema. Patient with worsening renal function. A single dose IV Lasix was given. On today's lab the creatinine is improving from 4.3-3.7. Electrolytes are within acceptable range. Patient made at least 1 L of urine. Oxygen requirement is at baseline 3 L. Will obtain chest x-ray. There is no emergent indication for renal replacement therapy. Appreciate Nephrology recommendations.. (2) Arm weakness: Code(s): R29.898 - Other symptoms and signs involving the musculoskeletal system Status: Acute Assessment and Plan: Generalized weakness, more prominent at the at the shoulder and pelvic girdles, improving. CT brain and cervical spine which showed Severe cervical spondylosis. 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 Age-related intracranial findings. Neurology was consulted. Weakness is improving. Continue PT/OT. (3) Fatigue: Code(s): R53.83 - Other fatigue Status: Acute Assessment and Plan: Patient carries a chronic diagnosis of COPD. Patient is not able to remain awake and falls asleep during our encounter. She was started on noninvasive ventilatory support with BiPAP at some point with modest improvement of her gas exchange. Mentation has improved and now patient awake alert oriented x4. Patient currently saturating 90% on oxygen at 3 L. continue BiPAP at night and during naps. (4) Leukocytosis: Qualifiers: Leukocytosis type: unspecified Qualified Code(s): D72.829 - Elevated white blood cell count, unspecified Code(s): D72.829 - Elevated white blood cell count, unspecified Status: Acute Assessment and Plan: Leukocytosis is improving at 23,000. This coincides with the continuation of steroids. It IV steroids were stopped [id number]. WBC is improving from 23.1-19.8 today. Blood cultures remain negative to date (5) Acute UTI: Code(s): N39.0 - Urinary tract infection, site not specified Status: Acute Assessment and Plan: Patient has completed 5 days of IV antibiotic with IV Rocephin #5. Urine culture positive for E. Coli, sensitive to Rocephin -Blood cultures Negative to date -completed 2 days of antibiotics with imipenem. (6) Acute kidney injury: Code(s): N17.9 - Acute kidney failure, unspecified Status: Acute Assessment and Plan: Acute non oliguric kidney injury in the setting of previously known CKD Baseline creatiine 1.13 October 2020 -4.1 on arrival, no prior for comparison. Creatinine continues to improve slowly and is down to 3.2 today. She made 850 cc of urine output overnight..This may announce renal recovery. E
[2021-06-01] VITALS (12 sets, daily range): BP systolic 127–151; BP diastolic 66–74; PULSE 84–110; RESP 16–20; TEMP 37.1–37.4; O2SAT 93–97
[2021-06-01 00:46] LABS: Glucose Point of Care 233 mg/dl (65-105)
[2021-06-01] MEDS: ALBUTEROL SULFATE NEB 2.5 MG/0.5 ML INH INHALATION ×4 (01:53→22:15)
[2021-06-01] MEDS: IPRATROPIUM BR 0.02% INH SOLN 0.5 MG/2.5 ML VIAL INHALATION ×4 (01:53→22:15)
[2021-06-01] MEDS: LEVOTHYROXINE SODIUM 150 MCG TABLET PO (06:24)
[2021-06-01 07:05] LABS: Hematocrit 35.4 % (37.0-47.0); Hemoglobin 10.7 g/dL (12.0-15.0); Mean Corpuscular HGB Conc 30.2 g/dl (32-36); Mean Corpuscular Hemoglobin 28.5 pg (26-34); Mean Corpuscular Volume 94.4 fl (80-100); Mean Platelet Volume 10.6 fl (7.4-10.4); Platelet Count Result 206 k/mm3 (150-375); Red Blood Count 3.75 M/mm3 (4.2-5.4); Red Cell Distribution Width 16.1 % (11.5-14.5); White Blood Count 12.8 K/mm3 (4.5-10.0)
[2021-06-01 07:17] LABS: Anion Gap 11 mmol/L (8-16); Blood Urea Nitrogen 83 mg/dL (7-17); Calcium 8.7 mg/dL (8.4-10.2); Carbon Dioxide 29 mmol/L (22-30); Chloride 100 mmol/L (98-107); Estimated Glomerular Filt Rate 17; Glucose 218 mg/dL (65-110); Potassium 3.7 mmol/L (3.4-5.0); Sodium 140 mmol/L (137-145)
[2021-06-01 08:03] LABS: Glucose Point of Care 208 mg/dl (65-105)
[2021-06-01] MEDS: FLUTICASONE/SALMETEROL 115-21 MCG INHALER 1 PUFF 2 PUFF INHALATION ×2 (08:11→22:16)
[2021-06-01] MEDS: MULTIVITAMINS THERAPEUTIC TAB (*BKC) 1 TABLET PO (08:28)
[2021-06-01] MEDS: BACLOFEN 5 MG TABLET PO (08:28)
[2021-06-01] MEDS: guaiFENesin 12 HR 600 MG TABCR PO ×2 (08:28→21:50)
[2021-06-01] MEDS: calcitrioL 0.25 MCG CAPSULE PO (08:28)
[2021-06-01] MEDS: allopurinoL 100 MG TABLET PO (08:28)
[2021-06-01] MEDS: DULoxetine HCL 30 MG CAPSULE.DR PO (08:28)
[2021-06-01] MEDS: FAMOTIDINE 20 MG/2 ML VIAL IV PUSH ×2 (08:28→21:50)
[2021-06-01] MEDS: predniSONE 10 MG TABLET 20 MG PO (08:28)
[2021-06-01] MEDS: TOLNAFTATE 1% POWDER 45 GM BTL 1 APPLIC TOPICAL ×2 (08:29→21:51)
[2021-06-01] MEDS: MICONAZOLE NITRATE 2% CREAM 30 GM TUBE 1 APPLIC TOPICAL ×2 (08:29→21:51)
[2021-06-01] MEDS: INSULIN ASPART (*BKC) 100 UNITS/ML SUB-Q ×3 (08:29→16:55)
--- NOTE | 2021-06-01 09:04 | PM.IMPN ---
Subjective Date/time seen: 06/01/21 09:04 Objective Data Vital Signs Vital Signs: Vital Signs - 24 hr 05/31/21 09:05 05/31/21 09:25 05/31/21 14:00 Temperature 98.0 F Pulse Rate 96 98 90 Respiratory Rate 18 20 16 Blood Pressure 145/83 H Pulse Oximetry 94 05/31/21 14:37 05/31/21 14:47 05/31/21 20:09 Temperature Pulse Rate 84 86 88 Respiratory Rate 18 20 20 Blood Pressure Pulse Oximetry 05/31/21 20:15 05/31/21 21:46 06/01/21 01:57 Temperature 98.3 F Pulse Rate 91 99 89 Respiratory Rate 20 16 18 Blood Pressure 156/82 H Pulse Oximetry 93 92 06/01/21 02:02 06/01/21 05:25 06/01/21 08:11 Temperature 99.0 F Pulse Rate 90 103 H 84 Respiratory Rate 20 16 18 Blood Pressure 127/68 Pulse Oximetry 96 Intake/Output Intake/Output: Intake & Output 05/29/21 05/30/21 05/31/21 06/01/21 23:59 23:59 23:59 23:59 Intake Total 232 682 9335 750 Output Total 1050 1800 2350 450 Balance -500 -1110 -940 300 Meds/Results Medications: Active Medications Generic Name Dose Route Start Last Admin Trade Name Freq PRN Reason Stop Dose Admin Acetaminophen 650 mg 05/22/21 08:43 Acetaminophen 325 Mg Tablet PO Q4H PRN Pain (Scale Score 1-3) Acetaminophen/Codeine Phosphate 1 tab 05/22/21 11:15 05/28/21 11:40 Acetaminophen/Codeine (*Crx) 300/30 Mg Tablet PO 1 tab TID PRN Administration Pain (Scale Score 4-6) Albuterol 2.5 mg 05/22/21 14:00 06/01/21 08:11 Albuterol Sulfate Neb 2.5 Mg/0.5 Ml Inh INHALATION 2.5 mg Q6HRT MARIBELL Administration Allopurinol 100 mg 05/22/21 09:00 06/01/21 08:28 Allopurinol 100 Mg Tablet PO 100 mg DAILY [facility]ELL Administration Artificial Tears 1 drop 05/22/21 09:11 Artificial Tears Ophth Soln 15 Ml Bottle EACH EYE TID PRN Dry Eyes Baclofen 5 mg 05/27/21 09:00 06/01/21 08:28 Baclofen 5 Mg Tablet PO 5 mg DAILY [facility]ELL Administration Calcitriol 0.25 mcg 05/22/21 09:00 06/01/21 08:28 Calcitriol 0.25 Mcg Capsule PO 0.25 mcg DAILY [facility]ELL Administration Dextrose 12.5 gm 05/22/21 08:48 Dextrose 50% 25 Gm/50 Ml Syringe IV PUSH PRN PRN Hypoglycemia Protocol Duloxetine HCl 30 mg 05/22/21 09:00 06/01/21 08:28 Duloxetine Hcl 30 Mg Capsule.Dr PO 30 mg DAILY MARIBELL Administration Enoxaparin Sodium 105 mg 05/23/21 18:00 05/31/21 18:00 Enoxaparin 120 Mg/0.8 Ml Syringe SUB-Q 105 mg Q24H MARIBELL Administration Ergocalciferol 50,000 unit 05/27/21 09:00 05/27/21 13:07 Ergocalciferol 50,000 Unit Capsule PO 50,000 unit Th@0900 [facility] Administration Famotidine 20 mg 05/26/21 21:00 06/01/21 08:28 Famotidine 20 Mg/2 Ml Vial IV PUSH 20 mg Q12HR MARIBELL Administration Glucagon 1 mg 05/22/21 08:48 Glucagon For Inj 1 Mg Vial IM PRN PRN Hypoglycemia Protocol Glucose 15 gm 05/22/21 08:48 Glucose Oral Gel 15 Gm Of Glucse In 37.5 Gm Tube PO PRN PRN Hypoglycemia Protocol Guaifenesin 600 mg 05/22/21 09:00 06/01/21 08:28 Guaifenesin 12 Hr 600 Mg Tabcr PO 600 mg Q12HR [facility]ELL Administration Dextrose 1,000 mls @ 100 mls/hr 05/22/21 08:48 Dextrose 5% 1,000 Ml IVPB PRN PRN Hypoglycemia Protocol Insulin Aspart 2 - 5 units 05/24/21 12:00 06/01/21 08:29 Insulin Aspart (*Bkc) 100 Units/Ml SUB-Q 2 units TIDWM MARIBELL Administration Protocol Ipratropium [place] 0.5 mg 05/22/21 14:00 06/01/21 08:11 Ipratropium Br 0.02% Inh Soln 0.5 Mg/2.5 Ml Vial INHALATION 0.5 mg Q6HRT MARIBELL Administration Levothyroxine Sodium 150 mcg 05/22/21 06:30 06/01/21 06:24 Levothyroxine Sodium 150 Mcg Tablet PO 150 mcg DAILY@0630 [facility] Administration Miconazole Nitrate 1 applic 05/26/21 09:00 06/01/21 08:29 Miconazole Nitrate 2% Cream 30 Gm Tube TOPICAL 1 applic Q12HR [facility] Administration Miscellaneous Information 1 each 05/31/21 00:01 Tylenol #3_ Needs To Be Renewed Or It Will Automati
--- NOTE | 2021-06-01 09:58 | P.PNNP_ITS ---
Progress Note: A&P Assessment and Plan (1) Abnormal results of kidney function studies: Code(s): R94.4 - Abnormal results of kidney function studies Status: Acute Assessment and Plan: * unclear what her baseline creatinine is * apparently had a bout of JESSICA/ARF in 2007 and was following with Dr. 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 * currently on steroids * follow repeat labs and UOP (2) Anemia: Code(s): D64.9 - Anemia, unspecified Status: Acute Assessment and Plan: * possibly due to JESSICA +/- CKD and acute illness * follow trend of H/H (3) Hypokalemia: Code(s): E87.6 - Hypokalemia Status: Resolved Assessment and Plan: * resolved/corrected * follow repeat K+ levels (4) Acute UTI: Code(s): N39.0 - Urinary tract infection, site not specified Status: Acute Assessment and Plan: * urine culture with E.coli * s/p IV rocephin and imipenem * blood culture negative (5) Gout: Code(s): M10.9 - Gout, unspecified Status: Acute Assessment and Plan: * no symptoms at this time * on allopurinol Will continue to follow. Subjective Date/time seen: 06/01/21 09:58 Overall, she seems to be doing quite well; creatinine improving associated with reasonable urine output; skin rash appears to be slowly improving as well; no apparent distress noted; no issues overnight or earlier this AM. Exam Narrative: General: WD/WN female in NAD Heart: normal S1 and S2; no rub Lungs: decreased breath sounds at bases Abdomen: soft, nontender, nondistended, positive bowel sounds Extremities: no cyanosis or clubbing; 1+ edema Skin: diffuse desquamation ongoing Objective Data Vital Signs Vital Signs: Vital Signs Temp Pulse Resp BP Pulse Ox 06/01/21 08:11 84 18 06/01/21 08:00 84 18 96 06/01/21 05:25 37.2 C 103 H 16 127/68 96 06/01/21 02:02 90 20 06/01/21 01:57 89 18 05/31/21 21:46 36.8 C 99 16 156/82 H 92 05/31/21 20:15 91 20 93 05/31/21 20:09 88 20 05/31/21 14:47 86 20 05/31/21 14:37 84 18 05/31/21 14:00 36.7 C 90 16 145/83 H 94 Intake/Output Intake/Output: Intake & Output 05/29/21 05/30/21 05/31/21 06/01/21 23:59 23:59 23:59 23:59 Intake Total 032 152 6883 750 Output Total 1050 1800 2350 500 Balance -500 -1110 -940 250 Meds/Results Medications: Active Medications Generic Name Dose Route Start Last Admin Trade Name Freq PRN Reason Stop Dose Admin Acetaminophen 650 mg 05/22/21 08:43 Acetaminophen 325 Mg Tablet PO Q4H PRN Pain (Scale Score 1-3) Acetaminophen/Codeine Phosphate 1 tab 05/22/21 11:15 05/28/21 11:40 Acetaminophen/Codeine (*Crx) 300/30 Mg Tablet PO 1 tab TID PRN Administration Pain (Scale Score 4-6)
--- NOTE | 2021-06-01 09:58 | PM.PNNEP ---
Progress Note: A&P Assessment and Plan (1) Abnormal results of kidney function studies: Code(s): R94.4 - Abnormal results of kidney function studies Status: Acute Assessment and Plan: unclear what her baseline creatinine is apparently had a bout of JESSICA/ARF in 2007 and was following with Dr. 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 currently on steroids follow repeat labs and UOP (2) Anemia: Code(s): D64.9 - Anemia, unspecified Status: Acute Assessment and Plan: possibly due to JESSICA +/- CKD and acute illness follow trend of H/H (3) Hypokalemia: Code(s): E87.6 - Hypokalemia Status: Resolved Assessment and Plan: resolved/corrected follow repeat K+ levels (4) Acute UTI: Code(s): N39.0 - Urinary tract infection, site not specified Status: Acute Assessment and Plan: urine culture with E.coli s/p IV rocephin and imipenem blood culture negative (5) Gout: Code(s): M10.9 - Gout, unspecified Status: Acute Assessment and Plan: no symptoms at this time on allopurinol Will continue to follow. Subjective Date/time seen: 06/01/21 09:58 Overall, she seems to be doing quite well; creatinine improving associated with reasonable urine output; skin rash appears to be slowly improving as well; no apparent distress noted; no issues overnight or earlier this AM. Exam Narrative: General: WD/WN female in NAD Heart: normal S1 and S2; no rub Lungs: decreased breath sounds at bases Abdomen: soft, nontender, nondistended, positive bowel sounds Extremities: no cyanosis or clubbing; 1+ edema Skin: diffuse desquamation ongoing Objective Data Vital Signs Vital Signs: Vital Signs Temp Pulse Resp BP Pulse Ox 06/01/21 08:11 84 18 06/01/21 08:00 84 18 96 06/01/21 05:25 37.2 C 103 H 16 127/68 96 06/01/21 02:02 90 20 06/01/21 01:57 89 18 05/31/21 21:46 36.8 C 99 16 156/82 H 92 05/31/21 20:15 91 20 93 05/31/21 20:09 88 20 05/31/21 14:47 86 20 05/31/21 14:37 84 18 05/31/21 14:00 36.7 C 90 16 145/83 H 94 Intake/Output Intake/Output: Intake & Output 05/29/21 05/30/21 05/31/21 06/01/21 23:59 23:59 23:59 23:59 Intake Total 150 568 3718 750 Output Total 1050 1800 2350 500 Balance -500 -1110 -940 250 Meds/Results Medications: Active Medications Generic Name Dose Route Start Last Admin Trade Name Freq PRN Reason Stop Dose Admin Acetaminophen 650 mg 05/22/21 08:43 Acetaminophen 325 Mg Tablet PO Q4H PRN Pain (Scale Score 1-3) Acetaminophen/Codeine Phosphate 1 tab 05/22/21 11:15 05/28/21 11:40 Acetaminophen/Codeine (*Crx) 300/30 Mg Tablet PO 1 tab TID PRN Administration Pain (Scale Score 4-6) Albuterol 2.5 mg 05/22/21 14:00 06/01/21 08:11 Albuterol Sulfate Neb 2.5 Mg/0.5 Ml Inh INHALATION 2.5 mg Q6HRT MARIBELL Administration Allopurinol 100 mg 05/22/21 09:00 06/01/21 08:28 Allopurinol 100 Mg Tablet PO 100 mg DAILY [facility]ELL Administration Artificial Tears 1 drop 05/22/21 09:11 Artificial Tears Ophth Soln 15 Ml Bottle EACH EYE TID PRN Dry Eyes Baclofen 5 mg 05/27/21 09:00 06/01/21 08:28 Baclofen 5 Mg Tablet PO 5 mg DAILY [facility]IBELL Administration Calcitriol 0.25 mcg 05/22/21 09:00 06/01/21 08:28 Calcitriol 0.25 Mcg Capsule PO 0.25 mcg DAILY MARIBELL Administration Dextrose 12.5 gm 05/22/21 08:48 Dextrose 50% 25 Gm/50 Ml Syringe IV PUSH PRN PRN Hypoglycemia Protocol Duloxetine HCl 30 mg 05/22/21 09:00 06/01/21 08:28
[2021-06-01 11:46] LABS: Glucose Point of Care 257 mg/dl (65-105)
[2021-06-01 16:54] LABS: Glucose Point of Care 254 mg/dl (65-105)
[2021-06-01] MEDS: INSULIN ASPART (*BKC) 100 UNITS/ML 10 UNITS SUB-Q (16:54)
--- NOTE | 2021-06-01 17:28 | P.PNIM_ITS ---
Progress Note: A&P Assessment and Plan (1) Acute generalized exanthematous pustulosis due to drug: Code(s): L27.0 - Generalized skin eruption due to drugs and medicaments taken internally; T50.905A - Adverse effect of unspecified drugs, medicaments and biological substances, initial encounter Status: Acute Assessment and Plan: Resolving rash, with diffuse desquamative rash revealing healthy underlying skin. Patient developed an acute erythematous rash with numerous pustules in the setting of edematous painful erythema. She was febrile with significant leukocytosis, mild leucocytosis after being started on antibiotics. Both penicillin and azithromycin have been stopped as potential drug culprit. Due to complaints of tongue swelling, and concern for airway compromise, she was started on H1 blockers, H2 blockers and IV steroids with improvement of her symptoms. Is blockers and IV steroids. Due to witnessed disordered breathing, pulmonary was consulted; appreciate their recommendations. Episode of respiratory distress May 28, 2021. Chest x-ray suggested cardiomegaly with mild pulmonary edema. Patient with worsening renal function. A single dose IV Lasix was given. On today's lab the creatinine is improving from 4.3-3.7. Electrolytes are within acceptable range. Patient made at least 0.5L of urine. Oxygen requirement is at baseline 3 L. chest x-ray shows cardiomegaly with mild pulmonary edema. Creatinine is improving slowly from 3.2-2.8, which is very encouraging. There is no emergent indication for renal replacement therapy. Appreciate Nephrology recommendations.. (2) Arm weakness: Code(s): R29.898 - Other symptoms and signs involving the musculoskeletal system Status: Acute Assessment and Plan: Generalized weakness, more prominent at the at the shoulder and pelvic girdles, improving. CT brain and cervical spine which showed Severe cervical spondylosis. 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 Age-related intracranial findings. Neurology was consulted. Weakness is improving. Continue PT/OT. (3) Fatigue: Code(s): R53.83 - Other fatigue Status: Acute Assessment and Plan: Patient carries a chronic diagnosis of COPD. Patient is not able to remain awake and falls asleep during our encounter. She was started on noninvasive ventilatory support with BiPAP at some point with modest improvement of her gas exchange. Mentation has improved and now patient awake alert oriented x4. Patient currently saturating 90% on oxygen at 3 L, which is baseline O2 requirement. continue BiPAP at night and during naps. Repeat chest x-ray in a.m.. (4) Leukocytosis: Qualifiers: Leukocytosis type: unspecified Qualified Code(s): D72.829 - Elevated white blood cell count, unspecified Code(s): D72.829 - Elevated white blood cell count, unspecified Status: Acute Assessment and Plan: Leukocytosis is improving at 12.8. Currently patient is on oral prednisone taper. * Blood cultures remain negative to date (5) Acute UTI: Code(s): N39.0 - Urinary tract infection, site not specified Status: Acute Assessment and Plan: Patient has completed 5 days of IV antibiotic with IV Rocephin #5. Urine culture positive for E. Coli, sensitive to Rocephin -Blood cultures Negative to date -completed 2 days of antibiotics with imipenem. (6) Acute kidney injury: Code(s
[2021-06-01] MEDS: ENOXAPARIN 120 MG/0.8 ML SYRINGE 105 MG SUB-Q (17:31)
[2021-06-01 23:05] LABS: Glucose Point of Care 180 mg/dl (65-105)
[2021-06-02] VITALS (12 sets, daily range): BP systolic 133–148; BP diastolic 66–84; PULSE 82–100; RESP 16–22; TEMP 36.2–36.7; O2SAT 90–96
[2021-06-02] MEDS: ALBUTEROL SULFATE NEB 2.5 MG/0.5 ML INH INHALATION ×4 (03:12→21:19)
[2021-06-02] MEDS: IPRATROPIUM BR 0.02% INH SOLN 0.5 MG/2.5 ML VIAL INHALATION ×4 (03:12→21:19)
[2021-06-02] MEDS: LEVOTHYROXINE SODIUM 150 MCG TABLET PO (05:57)
[2021-06-02 08:08] LABS: Hematocrit 33.7 % (37.0-47.0); Hemoglobin 10.4 g/dL (12.0-15.0); Mean Corpuscular HGB Conc 30.9 g/dl (32-36); Mean Corpuscular Hemoglobin 28.7 pg (26-34); Mean Corpuscular Volume 93.1 fl (80-100); Mean Platelet Volume 11.4 fl (7.4-10.4); Platelet Count Result 189 k/mm3 (150-375); Red Blood Count 3.62 M/mm3 (4.2-5.4); White Blood Count 17.8 K/mm3 (4.5-10.0)
[2021-06-02 08:25] LABS: Anion Gap 8 mmol/L (8-16); Blood Urea Nitrogen 75 mg/dL (7-17); Calcium 8.7 mg/dL (8.4-10.2); Carbon Dioxide 31 mmol/L (22-30); Chloride 101 mmol/L (98-107); Estimated Glomerular Filt Rate 18; Glucose 141 mg/dL (65-110); Potassium 3.4 mmol/L (3.4-5.0); Sodium 140 mmol/L (137-145)
[2021-06-02 08:32] LABS: Glucose Point of Care 126 mg/dl (65-105)
[2021-06-02] MEDS: DULoxetine HCL 30 MG CAPSULE.DR PO (09:07)
[2021-06-02] MEDS: guaiFENesin 12 HR 600 MG TABCR PO ×2 (09:07→21:58)
[2021-06-02] MEDS: FAMOTIDINE 20 MG/2 ML VIAL IV PUSH ×2 (09:07→21:58)
[2021-06-02] MEDS: allopurinoL 100 MG TABLET PO (09:07)
[2021-06-02] MEDS: BACLOFEN 5 MG TABLET PO (09:07)
[2021-06-02] MEDS: MULTIVITAMINS THERAPEUTIC TAB (*BKC) 1 TABLET PO (09:07)
[2021-06-02] MEDS: predniSONE 10 MG TABLET 20 MG PO (09:07)
[2021-06-02] MEDS: calcitrioL 0.25 MCG CAPSULE PO (09:07)
[2021-06-02] MEDS: TOLNAFTATE 1% POWDER 45 GM BTL 1 APPLIC TOPICAL ×2 (09:10→21:59)
[2021-06-02] MEDS: MICONAZOLE NITRATE 2% CREAM 30 GM TUBE 1 APPLIC TOPICAL ×2 (09:10→22:00)
[2021-06-02] MEDS: INSULIN GLARGINE (*BKC) 100 UNITS/ML 10 UNITS SUB-Q (09:11)
[2021-06-02] MEDS: FLUTICASONE/SALMETEROL 115-21 MCG INHALER 1 PUFF 2 PUFF INHALATION ×2 (09:26→21:19)
[2021-06-02 11:07] LABS: Hemoglobin A1C 7.1 % (<5.7)
[2021-06-02 11:39] LABS: Glucose Point of Care 158 mg/dl (65-105)
--- NOTE | 2021-06-02 12:44 | P.PNNP_ITS ---
Progress Note: A&P Assessment and Plan (1) Abnormal results of kidney function studies: Code(s): R94.4 - Abnormal results of kidney function studies Status: Acute Assessment and Plan: * unclear what her baseline creatinine is * apparently had a bout of JESSICA/ARF in 2007 and was following with Dr. 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 * currently on steroids * follow repeat labs and UOP (2) Anemia: Code(s): D64.9 - Anemia, unspecified Status: Acute Assessment and Plan: * possibly due to JESSICA +/- CKD and acute illness * follow trend of H/H (3) Hypokalemia: Code(s): E87.6 - Hypokalemia Status: Resolved Assessment and Plan: * resolved/corrected * follow repeat K+ levels (4) Acute UTI: Code(s): N39.0 - Urinary tract infection, site not specified Status: Acute Assessment and Plan: * urine culture with E.coli * s/p IV rocephin and imipenem * blood culture negative (5) Gout: Code(s): M10.9 - Gout, unspecified Status: Acute Assessment and Plan: * no symptoms at this time * on allopurinol Will continue to follow. Subjective Date/time seen: 06/02/21 12:44 No new issues or problems to report at this time; feels reasonably well and in good spirits; eating and drinking okay; reasonable urine output with slow improvement in renal function noted. Exam Narrative: General: WD/WN female in NAD Heart: normal S1 and S2; no rub Lungs: decreased breath sounds at bases Abdomen: soft, nontender, nondistended, positive bowel sounds Extremities: no cyanosis or clubbing; 1+ edema Skin: diffuse desquamation ongoing Objective Data Vital Signs Vital Signs: Vital Signs Temp Pulse Resp BP Pulse Ox 06/02/21 09:26 82 20 06/02/21 08:00 91 06/02/21 06:00 36.3 C L 100 20 148/73 H 90 06/02/21 03:24 87 20 06/02/21 03:12 85 20 06/01/21 22:58 97 06/01/21 22:28 90 19 06/01/21 22:19 88 17 06/01/21 22:00 37.4 C 110 H 20 151/74 H 93 Intake/Output Intake/Output: Intake & Output 05/30/21 05/31/21 06/01/21 06/02/21 23:59 23:59 23:59 23:59 Intake Total 690 1410 1110 560 Output Total 1800 2350 1100 400 Balance -1110 -940 10 160 Meds/Results Medications: Active Medications Generic Name Dose Route Start Last Admin Trade Name Freq PRN Reason Stop Dose Admin Acetaminophen 650 mg 05/22/21 08:43 Acetaminophen 325 Mg Tablet PO Q4H PRN Pain (Scale Score 1-3) Acetaminophen/Codeine Phosphate 1 tab 05/22/21 11:15 05/28/21 11:40 Acetaminophen/Codeine (*Crx) 300/30 Mg Tablet PO 1 tab TID PRN Administration Pain (Scale Score 4-6) Albuterol 2.5 mg 05/22/21 14:00 06/02/21 14:10 Albuterol Sulfate Neb 2.5 Mg/0.5 Ml Inh INHALATION 2.5 mg
--- NOTE | 2021-06-02 12:44 | PM.PNNEP ---
Progress Note: A&P Assessment and Plan (1) Abnormal results of kidney function studies: Code(s): R94.4 - Abnormal results of kidney function studies Status: Acute Assessment and Plan: unclear what her baseline creatinine is apparently had a bout of JESSICA/ARF in 2007 and was following with Dr. 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 currently on steroids follow repeat labs and UOP (2) Anemia: Code(s): D64.9 - Anemia, unspecified Status: Acute Assessment and Plan: possibly due to JESSICA +/- CKD and acute illness follow trend of H/H (3) Hypokalemia: Code(s): E87.6 - Hypokalemia Status: Resolved Assessment and Plan: resolved/corrected follow repeat K+ levels (4) Acute UTI: Code(s): N39.0 - Urinary tract infection, site not specified Status: Acute Assessment and Plan: urine culture with E.coli s/p IV rocephin and imipenem blood culture negative (5) Gout: Code(s): M10.9 - Gout, unspecified Status: Acute Assessment and Plan: no symptoms at this time on allopurinol Will continue to follow. Subjective Date/time seen: 06/02/21 12:44 No new issues or problems to report at this time; feels reasonably well and in good spirits; eating and drinking okay; reasonable urine output with slow improvement in renal function noted. Exam Narrative: General: WD/WN female in NAD Heart: normal S1 and S2; no rub Lungs: decreased breath sounds at bases Abdomen: soft, nontender, nondistended, positive bowel sounds Extremities: no cyanosis or clubbing; 1+ edema Skin: diffuse desquamation ongoing Objective Data Vital Signs Vital Signs: Vital Signs Temp Pulse Resp BP Pulse Ox 06/02/21 09:26 82 20 06/02/21 08:00 91 06/02/21 06:00 36.3 C L 100 20 148/73 H 90 06/02/21 03:24 87 20 06/02/21 03:12 85 20 06/01/21 22:58 97 01/25/22 22:28 90 19 06/01/21 22:19 88 17 06/01/21 22:00 37.4 C 110 H 20 151/74 H 93 Intake/Output Intake/Output: Intake & Output 05/30/21 05/31/21 06/01/21 06/02/21 23:59 23:59 23:59 23:59 Intake Total 690 1410 1110 560 Output Total 1800 2350 1100 400 Balance -1110 -940 10 160 Meds/Results Medications: Active Medications Generic Name Dose Route Start Last Admin Trade Name Freq PRN Reason Stop Dose Admin Acetaminophen 650 mg 05/22/21 08:43 Acetaminophen 325 Mg Tablet PO Q4H PRN Pain (Scale Score 1-3) Acetaminophen/Codeine Phosphate 1 tab 05/22/21 11:15 05/28/21 11:40 Acetaminophen/Codeine (*Crx) 300/30 Mg Tablet PO 1 tab TID PRN Administration Pain (Scale Score 4-6) Albuterol 2.5 mg 05/22/21 14:00 06/02/21 14:10 Albuterol Sulfate Neb 2.5 Mg/0.5 Ml Inh INHALATION 2.5 mg Q6HRT MARIBELL Administration Allopurinol 100 mg 05/22/21 09:00 06/02/21 09:07 Allopurinol 100 Mg Tablet PO 100 mg DAILY MARIBELL Administration Artificial Tears 1 drop 05/22/21 09:11 Artificial Tears Ophth Soln 15 Ml Bottle EACH EYE TID PRN Dry Eyes Baclofen 5 mg 05/27/21 09:00 06/02/21 09:07 Baclofen 5 Mg Tablet PO 5 mg DAILY MARIBELL Administration Calcitriol 0.25 mcg 05/22/21 09:00 06/02/21 09:07 Calcitriol 0.25 Mcg Capsule PO 0.25 mcg DAILY MARIBELL Administration Dextrose 12.5 gm 05/22/21 08:48 Dextrose 50% 25 Gm/50 Ml Syringe IV PUSH PRN PRN Hypoglycemia Protocol Dextrose 12.5 gm 06/01/21 13:01 Dextrose 50% 25 Gm/50 Ml Syringe IV PUSH PRN PRN Hypoglycemia Protocol Duloxetine HCl 30 mg 05/22/21 09:00 06/02
--- NOTE | 2021-06-02 13:01 | PM.IMPN ---
Progress Note: A&P Assessment and Plan (1) Acute generalized exanthematous pustulosis due to drug: Code(s): L27.0 - Generalized skin eruption due to drugs and medicaments taken internally; T50.905A - Adverse effect of unspecified drugs, medicaments and biological substances, initial encounter Status: Acute Assessment and Plan: Resolving rash, with diffuse desquamative rash revealing healthy underlying skin. Patient developed an acute erythematous rash with numerous pustules in the setting of edematous painful erythema. She was febrile with significant leukocytosis, mild leucocytosis after being started on antibiotics. Both penicillin and azithromycin have been stopped as potential drug culprit. Due to complaints of tongue swelling, and concern for airway compromise, she was started on H1 blockers, H2 blockers and IV steroids with improvement of her symptoms. Is blockers and IV steroids. Due to witnessed disordered breathing, pulmonary was consulted; appreciate their recommendations. Episode of respiratory distress May 28, 2021. Chest x-ray suggested cardiomegaly with mild pulmonary edema. Patient with worsening renal function. A single dose IV Lasix was given. On today's lab the creatinine is improving from 4.3-3.7. Electrolytes are within acceptable range. Patient made at least 0.5L of urine. Oxygen requirement is at baseline 3 L. chest x-ray shows cardiomegaly with mild pulmonary edema. Creatinine is improving slowly from 3.2-2.8, which is very encouraging. There is no emergent indication for renal replacement therapy. Appreciate Nephrology recommendations.. (2) Arm weakness: Code(s): R29.898 - Other symptoms and signs involving the musculoskeletal system Status: Acute Assessment and Plan: Generalized weakness, more prominent at the at the shoulder and pelvic girdles, improving. CT brain and cervical spine which showed Severe cervical spondylosis. 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 Age-related intracranial findings. Neurology was consulted. Weakness is improving. Continue PT/OT. (3) Fatigue: Code(s): R53.83 - Other fatigue Status: Acute Assessment and Plan: Patient carries a chronic diagnosis of COPD. Patient is not able to remain awake and falls asleep during our encounter. She was started on noninvasive ventilatory support with BiPAP at some point with modest improvement of her gas exchange. Mentation has improved and now patient awake alert oriented x4. Patient currently saturating 90% on oxygen at 3 L, which is baseline O2 requirement. continue BiPAP at night and during naps. Repeat chest x-ray in a.m.. (4) Leukocytosis: Qualifiers: Leukocytosis type: unspecified Qualified Code(s): D72.829 - Elevated white blood cell count, unspecified Code(s): D72.829 - Elevated white blood cell count, unspecified Status: Acute Assessment and Plan: Leukocytosis is improving at 12.8. Currently patient is on oral prednisone taper. Blood cultures remain negative to date (5) Acute UTI: Code(s): N39.0 - Urinary tract infection, site not specified Status: Acute Assessment and Plan: Patient has completed 5 days of IV antibiotic with IV Rocephin #5. Urine culture positive for E. Coli, sensitive to Rocephin -Blood cultures Negative to date -completed 2 days of antibiotics with imipenem. (6) Acute kidney injury: Code(s): N17.9 - Acute kidney failure, unspecified Status: Acute Assessment and Plan: Recovering acute non oliguric kidney injury in the setting of previously known CKD:, improving with a creatinine of 2.6 today. Baseline creatiine 1.13 October 2020 -4.1 on arrival, no prior for comparison. Creati
[2021-06-02 16:07] LABS: Glucose Point of Care 201 mg/dl (65-105)
[2021-06-02] MEDS: ENOXAPARIN 120 MG/0.8 ML SYRINGE 105 MG SUB-Q (17:29)
[2021-06-03] VITALS (13 sets, daily range): BP systolic 118–134; BP diastolic 70–78; PULSE 90–97; RESP 14–22; TEMP 36.1–36.6; O2SAT 91–97
[2021-06-03] MEDS: ALBUTEROL SULFATE NEB 2.5 MG/0.5 ML INH INHALATION ×4 (02:18→20:43)
[2021-06-03] MEDS: IPRATROPIUM BR 0.02% INH SOLN 0.5 MG/2.5 ML VIAL INHALATION ×4 (02:18→20:43)
[2021-06-03] MEDS: LEVOTHYROXINE SODIUM 150 MCG TABLET PO (07:43)
[2021-06-03] MEDS: predniSONE 10 MG TABLET 20 MG PO (09:28)
[2021-06-03] MEDS: BACLOFEN 5 MG TABLET PO (09:29)
[2021-06-03] MEDS: TOLNAFTATE 1% POWDER 45 GM BTL 1 APPLIC TOPICAL ×2 (09:29→20:12)
[2021-06-03] MEDS: DULoxetine HCL 30 MG CAPSULE.DR PO (09:29)
[2021-06-03] MEDS: ERGOCALCIFEROL 50,000 UNIT CAPSULE 50000 UNITS PO (09:29)
[2021-06-03] MEDS: calcitrioL 0.25 MCG CAPSULE PO (09:29)
[2021-06-03] MEDS: guaiFENesin 12 HR 600 MG TABCR PO ×2 (09:29→20:10)
[2021-06-03] MEDS: FAMOTIDINE 20 MG/2 ML VIAL IV PUSH ×2 (09:29→20:10)
[2021-06-03] MEDS: MICONAZOLE NITRATE 2% CREAM 30 GM TUBE 1 APPLIC TOPICAL ×2 (09:29→20:11)
[2021-06-03] MEDS: MULTIVITAMINS THERAPEUTIC TAB (*BKC) 1 TABLET PO (09:29)
[2021-06-03] MEDS: allopurinoL 100 MG TABLET PO (09:29)
[2021-06-03] MEDS: FLUTICASONE/SALMETEROL 115-21 MCG INHALER 1 PUFF 2 PUFF INHALATION ×2 (09:38→20:43)
[2021-06-03 11:17] LABS: Hematocrit 35.1 % (37.0-47.0); Hemoglobin 10.4 g/dL (12.0-15.0); Mean Corpuscular HGB Conc 29.6 g/dl (32-36); Mean Corpuscular Hemoglobin 28.8 pg (26-34); Mean Corpuscular Volume 97.2 fl (80-100); Mean Platelet Volume 10.2 fl (7.4-10.4); Platelet Count Result 171 k/mm3 (150-375); Red Blood Count 3.61 M/mm3 (4.2-5.4); Red Cell Distribution Width 15.9 % (11.5-14.5); White Blood Count 19.5 K/mm3 (4.5-10.0)
[2021-06-03 11:30] LABS: Anion Gap 5 mmol/L (8-16); Blood Urea Nitrogen 66 mg/dL (7-17); Calcium 8.8 mg/dL (8.4-10.2); Carbon Dioxide 34 mmol/L (22-30); Chloride 101 mmol/L (98-107); Estimated Glomerular Filt Rate 22; Glucose 120 mg/dL (65-110); Potassium 3.7 mmol/L (3.4-5.0); Sodium 140 mmol/L (137-145)
--- NOTE | 2021-06-03 13:06 | PM.IMPN ---
Progress Note: A&P Assessment and Plan (1) Acute generalized exanthematous pustulosis due to drug: Code(s): L27.0 - Generalized skin eruption due to drugs and medicaments taken internally; T50.905A - Adverse effect of unspecified drugs, medicaments and biological substances, initial encounter Status: Acute Assessment and Plan: Resolving rash, with diffuse desquamative rash revealing healthy underlying skin. May use Selsun shampoo was needed. Patient developed an acute erythematous rash with numerous pustules in the setting of edematous painful erythema. She was febrile with significant leukocytosis, mild leucocytosis after being started on antibiotics. Both penicillin and azithromycin have been stopped as potential drug culprit. Due to complaints of tongue swelling, and concern for airway compromise, she was started on H1 blockers, H2 blockers and IV steroids with improvement of her symptoms. Is blockers and IV steroids. Due to witnessed disordered breathing, pulmonary was consulted; appreciate their recommendations. Episode of respiratory distress May 28, 2021. Chest x-ray suggested cardiomegaly with mild pulmonary edema. Patient with worsening renal function. A single dose IV Lasix was given. On today's lab the creatinine is improving from 4.3-3.7. Electrolytes are within acceptable range. Patient made at least 0.5L of urine. Oxygen requirement is at baseline 3 L. chest x-ray shows cardiomegaly with mild pulmonary edema. Creatinine is improving slowly from from 2.8-2.2, which is very encouraging. Appreciate Nephrology recommendations.. (2) Arm weakness: Code(s): R29.898 - Other symptoms and signs involving the musculoskeletal system Status: Acute Assessment and Plan: Generalized weakness, more prominent at the at the shoulder and pelvic girdles, improving. CT brain and cervical spine which showed Severe cervical spondylosis. 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 Age-related intracranial findings. Neurology was consulted. Weakness is improving. Continue PT/OT. (3) Fatigue: Code(s): R53.83 - Other fatigue Status: Acute Assessment and Plan: Patient carries a chronic diagnosis of COPD. Patient is not able to remain awake and falls asleep during our encounter. She was started on noninvasive ventilatory support with BiPAP at some point with modest improvement of her gas exchange. Mentation has improved and now patient awake alert oriented x4. Patient currently saturating 90% on oxygen at 3 L, which is baseline O2 requirement. continue BiPAP at night and during naps. Repeat chest x-ray in a.m.. (4) Leukocytosis: Qualifiers: Leukocytosis type: unspecified Qualified Code(s): D72.829 - Elevated white blood cell count, unspecified Code(s): D72.829 - Elevated white blood cell count, unspecified Status: Acute Assessment and Plan: Leukocytosis is improving at 12.8. Currently patient is on oral prednisone taper. Blood cultures remain negative to date (5) Acute UTI: Code(s): N39.0 - Urinary tract infection, site not specified Status: Acute Assessment and Plan: Patient has completed 5 days of IV antibiotic with IV Rocephin #5. Urine culture positive for E. Coli, sensitive to Rocephin -Blood cultures Negative to date -completed 2 days of antibiotics with imipenem. (6) Acute kidney injury: Code(s): N17.9 - Acute kidney failure, unspecified Status: Acute Assessment and Plan: Recovering acute non oliguric kidney injury in the setting of previously known CKD:, improving with a creatinine of 2.2 today. Baseline creatiine 1.13 October 2020 -4.1 on arrival, no prior for comparison. Creatinine continues to impr
--- NOTE | 2021-06-03 14:05 | P.PNNP_ITS ---
Progress Note: A&P Assessment and Plan (1) Abnormal results of kidney function studies: Code(s): R94.4 - Abnormal results of kidney function studies Status: Acute Assessment and Plan: * unclear what her baseline creatinine is * apparently had a bout of JESSICA/ARF in 2007 and was following with Dr[address] 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 * currently on steroids * follow repeat labs and UOP (2) Anemia: Code(s): D64.9 - Anemia, unspecified Status: Acute Assessment and Plan: * doing better * possibly due to JESSICA +/- CKD and acute illness * follow trend of H/H (3) Hypokalemia: Code(s): E87.6 - Hypokalemia Status: Resolved Assessment and Plan: * resolved/corrected * follow repeat K+ levels (4) Acute UTI: Code(s): N39.0 - Urinary tract infection, site not specified Status: Acute Assessment and Plan: * urine culture with E.coli * s/p IV rocephin and imipenem * blood culture negative (5) Gout: Code(s): M10.9 - Gout, unspecified Status: Acute Assessment and Plan: * no symptoms at this time * on allopurinol Will continue to follow. Subjective Date/time seen: 06/03/21 14:05 Continues to do well at this time; respiratory status and lower extremity edema seems to be improving slowly; renal function and urine output are doing better as well; her rash/skin appears to be doing quite well at this time; no other issues/events overnight or earlier this AM. Exam Narrative: General: WD/WN female in NAD Heart: normal S1 and S2; no rub Lungs: decreased breath sounds at bases Abdomen: soft, nontender, nondistended, positive bowel sounds Extremities: no cyanosis or clubbing; 1+ edema Skin: healing well Objective Data Vital Signs Vital Signs: Vital Signs Temp Pulse Resp BP Pulse Ox 06/03/21 14:00 36.6 C 96 14 118/76 92 06/03/21 09:48 92 20 06/03/21 09:38 96 20 94 06/03/21 09:30 97 06/03/21 06:00 36.5 C 96 16 128/70 93 06/03/21 02:29 91 20 06/03/21 02:18 90 22 H 06/02/21 22:00 36.2 C L 99 16 133/66 95 06/02/21 21:22 88 18 06/02/21 21:19 96 06/02/21 21:15 87 16 06/02/21 20:35 99 16 95 Intake/Output Intake/Output: Intake & Output 05/31/21 06/01/21 06/02/21 06/03/21 23:59 23:59 23:59 23:59 Intake Total 1410 1110 1030 530 Output Total 2350 0278 497 2139 Balance -940 10 180 -770 Meds/Results Medications: Active Medications Generic Name Dose Route Start Last Admin Trade Name Freq PRN Reason Stop Dose Admin Acetaminophen 650 mg 05/22/21 08:43 Acetaminophen 325 Mg Tablet PO Q4H PRN Pain (Scale Score 1-3) Acetaminophen/Codeine Phosphate 1 tab 05/22/21 11:15 05/28/21 11:40 Acetaminophen/Codeine (*Crx) 300/30 Mg Tab
--- NOTE | 2021-06-03 14:05 | PM.PNNEP ---
Progress Note: A&P Assessment and Plan (1) Abnormal results of kidney function studies: Code(s): R94.4 - Abnormal results of kidney function studies Status: Acute Assessment and Plan: unclear what her baseline creatinine is apparently had a bout of JESSICA/ARF in 2007 and was following with Dr. 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 currently on steroids follow repeat labs and UOP (2) Anemia: Code(s): D64.9 - Anemia, unspecified Status: Acute Assessment and Plan: doing better possibly due to JESSICA +/- CKD and acute illness follow trend of H/H (3) Hypokalemia: Code(s): E87.6 - Hypokalemia Status: Resolved Assessment and Plan: resolved/corrected follow repeat K+ levels (4) Acute UTI: Code(s): N39.0 - Urinary tract infection, site not specified Status: Acute Assessment and Plan: urine culture with E.coli s/p IV rocephin and imipenem blood culture negative (5) Gout: Code(s): M10.9 - Gout, unspecified Status: Acute Assessment and Plan: no symptoms at this time on allopurinol Will continue to follow. Subjective Date/time seen: 06/03/21 14:05 Continues to do well at this time; respiratory status and lower extremity edema seems to be improving slowly; renal function and urine output are doing better as well; her rash/skin appears to be doing quite well at this time; no other issues/events overnight or earlier this AM. Exam Narrative: General: WD/WN female in NAD Heart: normal S1 and S2; no rub Lungs: decreased breath sounds at bases Abdomen: soft, nontender, nondistended, positive bowel sounds Extremities: no cyanosis or clubbing; 1+ edema Skin: healing well Objective Data Vital Signs Vital Signs: Vital Signs Temp Pulse Resp BP Pulse Ox 06/03/21 14:00 36.6 C 96 14 118/76 92 06/03/21 09:48 92 20 06/03/21 09:38 96 20 94 06/03/21 09:30 97 06/03/21 06:00 36.5 C 96 16 128/70 93 06/03/21 02:29 91 20 06/03/21 02:18 90 22 H 06/02/21 22:00 36.2 C L 99 16 133/66 95 06/02/21 21:22 88 18 06/02/21 21:19 96 06/02/21 21:15 87 16 06/02/21 20:35 99 16 95 Intake/Output Intake/Output: Intake & Output 05/31/21 06/01/21 06/02/21 06/03/21 23:59 23:59 23:59 23:59 Intake Total 1410 1110 1030 530 Output Total 2350 3026 570 1934 Balance -940 10 180 -770 Meds/Results Medications: Active Medications Generic Name Dose Route Start Last Admin Trade Name Freq PRN Reason Stop Dose Admin Acetaminophen 650 mg 05/22/21 08:43 Acetaminophen 325 Mg Tablet PO Q4H PRN Pain (Scale Score 1-3) Acetaminophen/Codeine Phosphate 1 tab 05/22/21 11:15 05/28/21 11:40 Acetaminophen/Codeine (*Crx) 300/30 Mg Tablet PO 1 tab TID PRN Administration Pain (Scale Score 4-6) Albuterol 2.5 mg 05/22/21 14:00 06/03/21 15:26 Albuterol Sulfate Neb 2.5 Mg/0.5 Ml Inh INHALATION 2.5 mg Q6HRT MARIBELL Administration Allopurinol 100 mg 05/22/21 09:00 06/03/21 09:29 Allopurinol 100 Mg Tablet PO 100 mg DAILY MARIBELL Administration Artificial Tears 1 drop 05/22/21 09:11 Artificial Tears Ophth Soln 15 Ml Bottle EACH EYE TID PRN Dry Eyes Baclofen 5 mg 05/27/21 09:00 06/03/21 09:29 Baclofen 5 Mg Tablet PO 5 mg DAILY MARIBELL Administration Calcitriol 0.25 mcg 05/22/21 09:00 06/03/21 09:29 Calcitriol 0.25 Mcg Capsule PO 0.25 mcg DAILY MARIBELL Administration Dextrose 12.5 gm 05/22/21 08:48 Dextrose 50% 25 Gm/50 Ml Syringe IV PUSH PRN PRN Hypoglycem
[2021-06-03] MEDS: ENOXAPARIN 120 MG/0.8 ML SYRINGE 105 MG SUB-Q (17:21)
[2021-06-04] VITALS (12 sets, daily range): BP systolic 140–150; BP diastolic 70–95; PULSE 84–98; RESP 20; TEMP 35.9–36.6; O2SAT 91–97
[2021-06-04] MEDS: ALBUTEROL SULFATE NEB 2.5 MG/0.5 ML INH INHALATION ×4 (02:20→21:39)
[2021-06-04] MEDS: IPRATROPIUM BR 0.02% INH SOLN 0.5 MG/2.5 ML VIAL INHALATION ×4 (02:20→21:39)
--- NOTE | 2021-06-04 02:53 | PCRCNOTE ---
Even though patient requested to be placed on AVAPS / BiPAP, she only left it on for about 1 hour.
[2021-06-04] MEDS: LEVOTHYROXINE SODIUM 150 MCG TABLET PO (06:15)
[2021-06-04 08:31] LABS: Hemoglobin 10.2 g/dL (12.0-15.0); Mean Corpuscular Volume 96.6 fl (80-100); Platelet Count Result 169 k/mm3 (150-375); Red Blood Count 3.52 M/mm3 (4.2-5.4); Red Cell Distribution Width 15.7 % (11.5-14.5)
[2021-06-04 08:45] LABS: Anion Gap 3 mmol/L (8-16); Blood Urea Nitrogen 61 mg/dL (7-17); Calcium 8.8 mg/dL (8.4-10.2); Carbon Dioxide 34 mmol/L (22-30); Chloride 104 mmol/L (98-107); Estimated Glomerular Filt Rate 25; Glucose 98 mg/dL (65-110); Potassium 3.9 mmol/L (3.4-5.0); Sodium 141 mmol/L (137-145)
[2021-06-04] MEDS: FLUTICASONE/SALMETEROL 115-21 MCG INHALER 1 PUFF 2 PUFF INHALATION ×2 (08:53→21:42)
[2021-06-04] MEDS: FAMOTIDINE 20 MG/2 ML VIAL IV PUSH ×2 (09:29→20:16)
[2021-06-04] MEDS: guaiFENesin 12 HR 600 MG TABCR PO ×2 (09:29→20:16)
[2021-06-04] MEDS: calcitrioL 0.25 MCG CAPSULE PO (09:29)
[2021-06-04] MEDS: MULTIVITAMINS THERAPEUTIC TAB (*BKC) 1 TABLET PO (09:29)
[2021-06-04] MEDS: allopurinoL 100 MG TABLET PO (09:29)
[2021-06-04] MEDS: predniSONE 10 MG TABLET 20 MG PO (09:29)
[2021-06-04] MEDS: BACLOFEN 5 MG TABLET PO (09:29)
[2021-06-04] MEDS: DULoxetine HCL 30 MG CAPSULE.DR PO (09:29)
[2021-06-04] MEDS: MICONAZOLE NITRATE 2% CREAM 30 GM TUBE 1 APPLIC TOPICAL ×2 (09:30→20:16)
[2021-06-04] MEDS: TOLNAFTATE 1% POWDER 45 GM BTL 1 APPLIC TOPICAL ×2 (09:30→20:17)
--- NOTE | 2021-06-04 13:02 | P.PNNP_ITS ---
Progress Note: A&P Assessment and Plan (1) Abnormal results of kidney function studies: Code(s): R94.4 - Abnormal results of kidney function studies Status: Acute Assessment and Plan: * unclear what her baseline creatinine is * apparently had a bout of JESSICA/ARF in 2007 and was following [address] Dr[address] Ron but has not seen him recently due to COVID pandemic * creatinine in October 2020 was 1.8mg/dl * evaluation to date: * smallish kidneys by renal ultrasound * urine electrolytes are not prerenal * normal CPK * Most likely due to interstitial nephritis. * Creatinine is down to 2. (2) Anemia: Code(s): D64.9 - Anemia, unspecified Status: Acute Assessment and Plan: * Hemoglobin 10.2. (3) Hypokalemia: Code(s): E87.6 - Hypokalemia Status: Resolved Assessment and Plan: * resolved/corrected * follow repeat K+ levels (4) Acute UTI: Code(s): N39.0 - Urinary tract infection, site not specified Status: Acute Assessment and Plan: * urine culture with E.coli * s/p IV rocephin and imipenem * blood culture negative (5) Gout: Code(s): M10.9 - Gout, unspecified Status: Acute Assessment and Plan: * no symptoms at this time * on allopurinol Will continue to follow. Subjective Date/time seen: 06/04/21 13:02 Interval history: Patient feels okay. She is weak. Exam Narrative: General: WD/WN female in NAD Heart: normal S1 and S2; no rub Lungs: decreased breath sounds at bases Abdomen: soft, nontender, nondistended, positive bowel sounds Extremities: 1+ edema Skin: Not red anymore. Expected superficial desquamation. The rash is running its course. Objective Data Vital Signs Vital Signs: Vital Signs - 24 hr 06/03/21 14:00 06/03/21 15:26 06/03/21 15:35 Temperature 36.6 C Pulse Rate 96 90 95 Respiratory Rate 14 20 20 Blood Pressure 118/76 Pulse Oximetry 92 06/03/21 20:00 06/03/21 20:13 06/03/21 20:23 Temperature Pulse Rate 95 95 Respiratory Rate 20 20 Blood Pressure Pulse Oximetry 92 95 06/03/21 22:00 06/04/21 02:20 06/04/21 02:30 Temperature 36.1 C L Pulse Rate 97 95 95 Respiratory Rate 20 20 20 Blood Pressure 134/78 Pulse Oximetry 91 06/04/21 06:00 06/04/21 08:50 06/04/21 08:53 Temperature 35.9 C L Pulse Rate 89 90 90 Respiratory Rate 20 20 Blood Pressure 149/78 H Pulse Oximetry 96 95 06/04/21 08:57 06/04/21 09:40 Temperature Pulse Rate 91 Respiratory Rate 20 Blood Pressure Pulse Oximetry 91 Intake/Output Intake/Output: Intake & Output 06/01/21 06/02/21 06/03/21 06/04/21 23:59 23:59 23:59 23:59 Intake Total 1110 1030 530 250 Output Total 1936 159 4644 700 Balance 10 440 -229 -312 Meds/Results Medications: Active Medications Generic Name Dose Route Start Last Admin Trade Name Freq PRN Reason Stop Dose Admin Acetaminophen 650 mg 05/22/21 08:43 Acetaminophen 325 Mg Tablet
--- NOTE | 2021-06-04 13:02 | PM.PNNEP ---
Progress Note: A&P Assessment and Plan (1) Abnormal results of kidney function studies: Code(s): R94.4 - Abnormal results of kidney function studies Status: Acute Assessment and Plan: unclear what her baseline creatinine is apparently had a bout of JESSICA/ARF in 2007 and was following with Dr. Ron but has not seen him recently due to COVID pandemic creatinine in October 2020 was 1.8mg/dl evaluation to date: smallish kidneys by renal ultrasound urine electrolytes are not prerenal normal CPK Most likely due to interstitial nephritis. Creatinine is down to 2. (2) Anemia: Code(s): D64.9 - Anemia, unspecified Status: Acute Assessment and Plan: Hemoglobin 10.2. (3) Hypokalemia: Code(s): E87.6 - Hypokalemia Status: Resolved Assessment and Plan: resolved/corrected follow repeat K+ levels (4) Acute UTI: Code(s): N39.0 - Urinary tract infection, site not specified Status: Acute Assessment and Plan: urine culture with E.coli s/p IV rocephin and imipenem blood culture negative (5) Gout: Code(s): M10.9 - Gout, unspecified Status: Acute Assessment and Plan: no symptoms at this time on allopurinol Will continue to follow. Subjective Date/time seen: 06/04/21 13:02 Interval history: Patient feels okay. She is weak. Exam Narrative: General: WD/WN female in NAD Heart: normal S1 and S2; no rub Lungs: decreased breath sounds at bases Abdomen: soft, nontender, nondistended, positive bowel sounds Extremities: 1+ edema Skin: Not red anymore. Expected superficial desquamation. The rash is running its course. Objective Data Vital Signs Vital Signs: Vital Signs - 24 hr 06/03/21 14:00 06/03/21 15:26 06/03/21 15:35 Temperature 36.6 C Pulse Rate 96 90 95 Respiratory Rate 14 20 20 Blood Pressure 118/76 Pulse Oximetry 92 06/03/21 20:00 06/03/21 20:13 06/03/21 20:23 Temperature Pulse Rate 95 95 Respiratory Rate 20 20 Blood Pressure Pulse Oximetry 92 95 06/03/21 22:00 06/04/21 02:20 06/04/21 02:30 Temperature 36.1 C L Pulse Rate 97 95 95 Respiratory Rate 20 20 20 Blood Pressure 134/78 Pulse Oximetry 91 06/04/21 06:00 06/04/21 08:50 06/04/21 08:53 Temperature 35.9 C L Pulse Rate 89 90 90 Respiratory Rate 20 20 Blood Pressure 149/78 H Pulse Oximetry 96 95 06/04/21 08:57 06/04/21 09:40 Temperature Pulse Rate 91 Respiratory Rate 20 Blood Pressure Pulse Oximetry 91 Intake/Output Intake/Output: Intake & Output 06/01/21 06/02/21 06/03/21 06/04/21 23:59 23:59 23:59 23:59 Intake Total 1110 1030 530 250 Output Total 8072 190 9775 700 Balance 10 603 -820 450 Meds/Results Medications: Active Medications Generic Name Dose Route Start Last Admin Trade Name Freq PRN Reason Stop Dose Admin Acetaminophen 650 mg 05/22/21 08:43 Acetaminophen 325 Mg Tablet PO Q4H PRN Pain (Scale Score 1-3) Acetaminophen/Codeine Phosphate 1 tab 05/22/21 11:15 05/28/21 11:40 Acetaminophen/Codeine (*Crx) 300/30 Mg Tablet PO 1 tab TID PRN Administration Pain (Scale Score 4-6) Albuterol 2.5 mg 05/22/21 14:00 06/04/21 08:53 Albuterol Sulfate Neb 2.5 Mg/0.5 Ml Inh INHALATION 2.5 mg Q6HRT MARIBELL Administration Allopurinol 100 mg 05/22/21 09:00 06/04/21 09:29 Allopurinol 100 Mg Tablet PO 100 mg DAILY MARIBELL Administration Artificial Tears 1 drop 05/22/21 09:11 Artificial Tears Ophth Soln 15 Ml Bottle EACH EYE TID PRN Dry Eyes Baclofen 5 mg 05/27/21 09:00 06/04/21 09:29 Baclofen 5 Mg Tablet PO 5 mg DAILY MARIBELL Administration Calcitriol 0.25 mcg 05/22/21 09:00 06/04/21 09:29 Calcitriol 0.25 Mcg Capsule PO 0.25 mcg DAILY MARIBELL Administration Dextrose 12.5 gm 05/22/21 08:48 Dextrose 50% 25 Gm/50 Ml Syringe IV PUSH PRN PRN Hypoglycemia Protoc
--- NOTE | 2021-06-04 14:37 | PCNFU ---
Nutrition Follow-Up Complete: Inadequate oral intake related to UTI, JESSICA, and dehydration as evidenced by reported intake of 0% x4 and 25% Goal: Pt to meet 75% of estimated nutritional needs Pt is progressing towards goal Pt current nutrition is carb consistent diet and dietary supplement Last recorded weight is 109 kg. Bowel Motility:+BM 06/02 reported Labs Reviewed: hgb 10.2, hct 34.0, CO2 34, GFR 25, BUN 61, Cr 2.0, Glu 120 Meds Noted: zyloprim, lioresal, rocaltrol, cymbalta, pepcid, mucinex, synthroid, multivitamins, prednisone Skin: left buttock friction, skin fold groin maceration, bilateral skin fold breast maceration, skin fold neck maceration Additional Notes: Current nutrition is carb consistent diet with reported intake of 50% x2, 0% x2, and 20%. Visited with pt who reports that her appetite is fine. RDN placed orders for Glucerna Shake BID to provide an additional 220kcal and 10g of protein to increase caloric intake. Pt agreed to drink dietary supplement. Diet office has been notified. Agree with diet orders at this time. Will continue to follow. Will monitor labs, medication, wt, and reported intake every 5 days
[2021-06-04] MEDS: ENOXAPARIN 120 MG/0.8 ML SYRINGE 105 MG SUB-Q (17:18)
[2021-06-04] MEDS: EUCERIN CREAM 454 GM JAR 1 APPLIC TOPICAL (20:16)
--- NOTE | 2021-06-04 20:19 | P.PNIM_ITS ---
Progress Note: A&P Assessment and Plan (1) Acute generalized exanthematous pustulosis due to drug: Code(s): L27.0 - Generalized skin eruption due to drugs and medicaments taken internally; T50.905A - Adverse effect of unspecified drugs, medicaments and biological substances, initial encounter Status: Acute Assessment and Plan: Resolving rash, with diffuse desquamative rash revealing healthy underlying skin. May use Selsun shampoo was needed. Patient developed an acute erythematous rash with numerous pustules in the setting of edematous painful erythema. She was febrile with significant leukocytosis, mild leucocytosis after being started on antibiotics. Both penicillin and azithromycin have been stopped as potential drug culprit. Due to complaints of tongue swelling, and concern for airway compromise, she was started on H1 blockers, H2 blockers and IV steroids with improvement of her symptoms. Is blockers and IV steroids. Due to witnessed disordered breathing, pulmonary was consulted; appreciate their recommendations. Episode of respiratory distress May 28, 2021. Chest x-ray suggested cardiomegaly with mild pulmonary edema. Patient with worsening renal function. A single dose IV Lasix was given. On today's lab the creatinine is improving from 4.3-3.7. Electrolytes are within acceptable range. Patient made at least 0.5L of urine. Oxygen requirement is at baseline 3 L. chest x-ray shows cardiomegaly with mild pulmonary edema. Creatinine is improving slowly from from 2.8-2.2, which is very encouraging. Appreciate Nephrology recommendations.. (2) Arm weakness: Code(s): R29.898 - Other symptoms and signs involving the musculoskeletal system Status: Acute Assessment and Plan: Generalized weakness, more prominent at the at the shoulder and pelvic girdles, improving. CT brain and cervical spine which showed Severe cervical spondylosis. 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 Age-related intracranial findings. Neurology was consulted. Weakness is improving. Continue PT/OT. (3) Fatigue: Code(s): R53.83 - Other fatigue Status: Acute Assessment and Plan: Patient carries a chronic diagnosis of COPD. Patient is not able to remain awake and falls asleep during our encounter. She was started on noninvasive ventilatory support with BiPAP at some point with modest improvement of her gas exchange. Mentation has improved and now patient awake alert oriented x4. Patient currently saturating 90% on oxygen at 3 L, which is baseline O2 requirement. continue BiPAP at night and during naps. Repeat chest x-ray in a.m.. (4) Leukocytosis: Qualifiers: Leukocytosis type: unspecified Qualified Code(s): D72.829 - Elevated white blood cell count, unspecified Code(s): D72.829 - Elevated white blood cell count, unspecified Status: Acute Assessment and Plan: Leukocytosis is improving at 12.8. Currently patient is on oral prednisone taper. * Blood cultures remain negative to date (5) Acute UTI: Code(s): N39.0 - Urinary tract infection, site not specified Status: Acute Assessment and Plan: Patient has completed 5 days of IV antibiotic with IV Rocephin #5. Urine culture positive for E. Coli, sensitive to Rocephin -Blood cultures Negative to date -completed 2 days of antibiotics with imipenem. (6) Acute kidney injury: Code(s): N17.9 - Acute k
[2021-06-04] MEDS: ACETAMINOPHEN/CODEINE (*CRX) 300/30 MG TABLET 1 TAB PO (23:19)
[2021-06-05] VITALS (12 sets, daily range): BP systolic 137–155; BP diastolic 67–81; PULSE 88–98; RESP 18–22; TEMP 36.1–37.4; O2SAT 90–95
[2021-06-05] MEDS: ALBUTEROL SULFATE NEB 2.5 MG/0.5 ML INH INHALATION ×4 (04:10→20:00)
[2021-06-05] MEDS: IPRATROPIUM BR 0.02% INH SOLN 0.5 MG/2.5 ML VIAL INHALATION ×4 (04:10→20:00)
[2021-06-05] MEDS: LEVOTHYROXINE SODIUM 150 MCG TABLET PO (06:28)
[2021-06-05 07:44] LABS: Hematocrit 37.6 % (37.0-47.0); Hemoglobin 11.2 g/dL (12.0-15.0); Mean Corpuscular HGB Conc 29.8 g/dl (32-36); Mean Corpuscular Hemoglobin 28.6 pg (26-34); Mean Corpuscular Volume 96.2 fl (80-100); Mean Platelet Volume 11.8 fl (7.4-10.4); Platelet Count Result 213 k/mm3 (150-375); Red Blood Count 3.91 M/mm3 (4.2-5.4); Red Cell Distribution Width 15.4 % (11.5-14.5); White Blood Count 21.8 K/mm3 (4.5-10.0)
[2021-06-05 07:56] LABS: Anion Gap 2 mmol/L (8-16); Blood Urea Nitrogen 52 mg/dL (7-17); Calcium 8.9 mg/dL (8.4-10.2); Carbon Dioxide 33 mmol/L (22-30); Chloride 100 mmol/L (98-107); Estimated Glomerular Filt Rate 30; Glucose 88 mg/dL (65-110); Potassium 4.1 mmol/L (3.4-5.0); Sodium 135 mmol/L (137-145)
[2021-06-05] MEDS: MICONAZOLE NITRATE 2% CREAM 30 GM TUBE 1 APPLIC TOPICAL ×2 (08:35→20:49)
[2021-06-05] MEDS: TOLNAFTATE 1% POWDER 45 GM BTL 1 APPLIC TOPICAL ×2 (08:35→20:48)
[2021-06-05] MEDS: allopurinoL 100 MG TABLET PO (08:36)
[2021-06-05] MEDS: calcitrioL 0.25 MCG CAPSULE PO (08:36)
[2021-06-05] MEDS: MULTIVITAMINS THERAPEUTIC TAB (*BKC) 1 TABLET PO (08:36)
[2021-06-05] MEDS: predniSONE 10 MG TABLET 20 MG PO (08:36)
[2021-06-05] MEDS: BACLOFEN 5 MG TABLET PO (08:36)
[2021-06-05] MEDS: guaiFENesin 12 HR 600 MG TABCR PO ×2 (08:36→20:47)
[2021-06-05] MEDS: DULoxetine HCL 30 MG CAPSULE.DR PO (08:37)
[2021-06-05] MEDS: FAMOTIDINE 20 MG/2 ML VIAL IV PUSH ×2 (08:37→20:47)
[2021-06-05] MEDS: EUCERIN CREAM 454 GM JAR 1 APPLIC TOPICAL ×2 (08:39→20:48)
[2021-06-05] MEDS: FLUTICASONE/SALMETEROL 115-21 MCG INHALER 1 PUFF 2 PUFF INHALATION ×2 (09:12→20:00)
--- NOTE | 2021-06-05 10:46 | P.PNNP_ITS ---
Progress Note: A&P Assessment and Plan (1) Abnormal results of kidney function studies: Code(s): R94.4 - Abnormal results of kidney function studies Status: Acute Assessment and Plan: * unclear what her baseline creatinine is * apparently had a bout of JESSICA/ARF in 2007 and was following with Dr. Ron but has not seen him recently due to COVID pandemic * creatinine in October 2020 was 1.8mg/dl * evaluation to date: * smallish kidneys by renal ultrasound * urine electrolytes are not prerenal * normal CPK * Most likely due to interstitial nephritis. * Creatinine is down to 1.7. (2) Anemia: Code(s): D64.9 - Anemia, unspecified Status: Acute Assessment and Plan: * Hemoglobin 10.2. (3) Hypokalemia: Code(s): E87.6 - Hypokalemia Status: Resolved Assessment and Plan: * resolved/corrected * follow repeat K+ levels (4) Acute UTI: Code(s): N39.0 - Urinary tract infection, site not specified Status: Acute Assessment and Plan: * urine culture with E.coli * s/p IV rocephin and imipenem * blood culture negative (5) Gout: Code(s): M10.9 - Gout, unspecified Status: Acute Assessment and Plan: * no symptoms at this time * on allopurinol Will continue to follow. Subjective Date/time seen: 06/05/21 10:46 Interval history: Patient feels okay. Still has some itching. The creams in the steroids helped She is weak. Exam Narrative: General: WD/WN female in NAD Heart: normal S1 and S2; no rub Lungs: decreased breath sounds at bases Abdomen: soft, nontender, nondistended, positive bowel sounds Extremities: 1+ edema Skin: Not red anymore. Expected superficial desquamation. The rash is running its course. Objective Data Vital Signs Vital Signs: Vital Signs - 24 hr 06/04/21 14:05 06/04/21 15:31 06/04/21 20:00 Temperature 36.6 C Pulse Rate 84 98 98 Respiratory Rate 20 20 20 Blood Pressure 140/70 Pulse Oximetry 96 96 06/04/21 21:40 06/04/21 22:00 06/05/21 04:13 Temperature 35.9 C L Pulse Rate 96 95 88 Respiratory Rate 20 20 18 Blood Pressure 150/95 H Pulse Oximetry 97 06/05/21 04:14 06/05/21 05:18 06/05/21 09:08 Temperature 36.1 C L Pulse Rate 97 90 Respiratory Rate 22 H 18 Blood Pressure 137/81 Pulse Oximetry 94 93 06/05/21 09:14 06/05/21 09:15 Temperature Pulse Rate 93 Respiratory Rate 20 Blood Pressure Pulse Oximetry 95 Intake/Output Intake/Output: Intake & Output 06/02/21 06/03/21 06/04/21 06/05/21 23:59 23:59 23:59 23:59 Intake Total 1030 530 730 660 Output Total 850 1350 1400 350 Balance 180 -820 -670 310 Meds/Results Medications: Active Medications Generic Name Dose Route Start Last Admin Trade Name Freq PRN Reason Stop Dose Admin Acetaminophen 650 mg 05/22/21 08:43 Acetaminophen 325 Mg Tablet PO Q4H PRN Pain (Scale Score 1-3) Acetaminophen/Codeine Phosphate 1 tab 05/22/21 11:15 06/04/21 23:19 Acetamino
--- NOTE | 2021-06-05 10:46 | PM.PNNEP ---
Progress Note: A&P Assessment and Plan (1) Abnormal results of kidney function studies: Code(s): R94.4 - Abnormal results of kidney function studies Status: Acute Assessment and Plan: unclear what her baseline creatinine is apparently had a bout of JESSICA/ARF in 2007 and was following with Dr. Ron but has not seen him recently due to COVID pandemic creatinine in October 2020 was 1.8mg/dl evaluation to date: smallish kidneys by renal ultrasound urine electrolytes are not prerenal normal CPK Most likely due to interstitial nephritis. Creatinine is down to 1.7. (2) Anemia: Code(s): D64.9 - Anemia, unspecified Status: Acute Assessment and Plan: Hemoglobin 10.2. (3) Hypokalemia: Code(s): E87.6 - Hypokalemia Status: Resolved Assessment and Plan: resolved/corrected follow repeat K+ levels (4) Acute UTI: Code(s): N39.0 - Urinary tract infection, site not specified Status: Acute Assessment and Plan: urine culture with E.coli s/p IV rocephin and imipenem blood culture negative (5) Gout: Code(s): M10.9 - Gout, unspecified Status: Acute Assessment and Plan: no symptoms at this time on allopurinol Will continue to follow. Subjective Date/time seen: 06/05/21 10:46 Interval history: Patient feels okay. Still has some itching. The creams in the steroids helped She is weak. Exam Narrative: General: WD/WN female in NAD Heart: normal S1 and S2; no rub Lungs: decreased breath sounds at bases Abdomen: soft, nontender, nondistended, positive bowel sounds Extremities: 1+ edema Skin: Not red anymore. Expected superficial desquamation. The rash is running its course. Objective Data Vital Signs Vital Signs: Vital Signs - 24 hr 06/04/21 14:05 06/04/21 15:31 06/04/21 20:00 Temperature 36.6 C Pulse Rate 84 98 98 Respiratory Rate 20 20 20 Blood Pressure 140/70 Pulse Oximetry 96 96 06/04/21 21:40 06/04/21 22:00 06/05/21 04:13 Temperature 35.9 C L Pulse Rate 96 95 88 Respiratory Rate 20 20 18 Blood Pressure 150/95 H Pulse Oximetry 97 06/05/21 04:14 06/05/21 05:18 06/05/21 09:08 Temperature 36.1 C L Pulse Rate 97 90 Respiratory Rate 22 H 18 Blood Pressure 137/81 Pulse Oximetry 94 93 06/05/21 09:14 06/05/21 09:15 Temperature Pulse Rate 93 Respiratory Rate 20 Blood Pressure Pulse Oximetry 95 Intake/Output Intake/Output: Intake & Output 06/02/21 06/03/21 06/04/21 06/05/21 23:59 23:59 23:59 23:59 Intake Total 1030 530 730 660 Output Total 850 1350 1400 350 Balance 180 820 670 310 Meds/Results Medications: Active Medications Generic Name Dose Route Start Last Admin Trade Name Freq PRN Reason Stop Dose Admin Acetaminophen 650 mg 05/22/21 08:43 Acetaminophen 325 Mg Tablet PO Q4H PRN Pain (Scale Score 1-3) Acetaminophen/Codeine Phosphate 1 tab 05/22/21 11:15 06/04/21 23:19 Acetaminophen/Codeine (*Crx) 300/30 Mg Tablet PO 1 tab TID PRN Administration Pain (Scale Score 4-6) Albuterol 2.5 mg 05/22/21 14:00 06/05/21 09:12 Albuterol Sulfate Neb 2.5 Mg/0.5 Ml Inh INHALATION 2.5 mg Q6HRT MARIBELL Administration Allopurinol 100 mg 05/22/21 09:00 06/05/21 08:36 Allopurinol 100 Mg Tablet PO 100 mg DAILY MARIBELL Administration Artificial Tears 1 drop 05/22/21 09:11 Artificial Tears Ophth Soln 15 Ml Bottle EACH EYE TID PRN Dry Eyes Baclofen 5 mg 05/27/21 09:00 06/05/21 08:36 Baclofen 5 Mg Tablet PO 5 mg DAILY MARIBELL Administration Calcitriol 0.25 mcg 05/22/21 09:00 06/05/21 08:36 Calcitriol 0.25 Mcg Capsule PO 0.25 mcg DAILY MARIBELL Administration Dextrose 12.5 gm 05/22/21 08:48 Dextrose 50% 25 Gm/50 Ml Syringe IV PUSH PRN PRN Hypoglycemia Protocol Dextrose 12.5 gm 06/01/21 13:01 Dextrose 50% 25 Gm/50 Ml Syringe IV PUSH
--- NOTE | 2021-06-05 12:06 | PM.IMPN ---
Progress Note: A&P Assessment and Plan (1) Acute generalized exanthematous pustulosis due to drug: Code(s): L27.0 - Generalized skin eruption due to drugs and medicaments taken internally; T50.905A - Adverse effect of unspecified drugs, medicaments and biological substances, initial encounter Status: Acute Assessment and Plan: Resolving rash, with diffuse desquamative rash revealing healthy underlying skin. May use Selsun shampoo was needed. Patient developed an acute erythematous rash with numerous pustules in the setting of edematous painful erythema. She was febrile with significant leukocytosis, mild leucocytosis after being started on antibiotics. Both penicillin and azithromycin have been stopped as potential drug culprit. Due to complaints of tongue swelling, and concern for airway compromise, she was started on H1 blockers, H2 blockers and IV steroids with improvement of her symptoms. Is blockers and IV steroids. Due to witnessed disordered breathing, pulmonary was consulted; appreciate their recommendations. Episode of respiratory distress May 28, 2021. Chest x-ray suggested cardiomegaly with mild pulmonary edema. Patient with worsening renal function. A single dose IV Lasix was given. On today's lab the creatinine is improving from 4.3-3.7. Electrolytes are within acceptable range. Patient made at least 0.5L of urine. Oxygen requirement is at baseline 3 L. chest x-ray shows cardiomegaly with mild pulmonary edema. Creatinine is improving slowly from from 2.8-2.2, which is very encouraging. Appreciate Nephrology recommendations.. (2) Arm weakness: Code(s): R29.898 - Other symptoms and signs involving the musculoskeletal system Status: Acute Assessment and Plan: Generalized weakness, more prominent at the at the shoulder and pelvic girdles, improving. CT brain and cervical spine which showed Severe cervical spondylosis. 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 Age-related intracranial findings. Neurology was consulted. Weakness is improving. Continue PT/OT. (3) Acute UTI: Code(s): N39.0 - Urinary tract infection, site not specified Status: Acute Assessment and Plan: Completed 5 days of IV antibiotic with IV Rocephin #5. Urine culture positive for E. Coli, sensitive to Rocephin -Blood cultures Negative to date Completed 2 days of antibiotics with imipenem. (4) Acute kidney injury: Code(s): N17.9 - Acute kidney failure, unspecified Status: Acute Assessment and Plan: Recovering acute non oliguric kidney injury in the setting of previously known CKD:, improving with a creatinine of 2.2 today. Baseline creatiine 1.13 October 2020 4.1 on arrival, no prior for comparison. Creatinine continues to improve slowly and is down to 1.7 on 06/05. (5) DVT (deep venous thrombosis): Qualifiers: DVT location: lower extremity Affected thrombotic vein of extremity: femoral Chronicity: acute Laterality: right Qualified Code(s): I82.411 - Acute embolism and thrombosis of right femoral vein Code(s): I82.409 - Acute embolism and thrombosis of unspecified deep veins of unspecified lower extremity Status: Acute Assessment and Plan: venous doppler positive for R femoral nonocclusive DVT Continue Lovenox 1 mg/kg q 24 hours. (6) Pneumonia: Qualifiers: Pneumonia type: due to unspecified organism Laterality: unspecified laterality Lung location: unspecified part of lung Qualified Code(s): J18.9 - Pneumonia, unspecified organism Code(s): J18.9 - Pneumonia, unspecified organism Status: Acute Assessment and Plan: -Pt w/ hx of COPD, reports dry cough -CXR w/ atelectasis vs pneumonia -poor insoirato
[2021-06-05] MEDS: ENOXAPARIN 120 MG/0.8 ML SYRINGE 105 MG SUB-Q (18:20)
[2021-06-06] VITALS (10 sets, daily range): BP systolic 142–150; BP diastolic 82–88; PULSE 88–92; RESP 16–21; TEMP 35.8–36.8; O2SAT 90–94
[2021-06-06] MEDS: ALBUTEROL SULFATE NEB 2.5 MG/0.5 ML INH INHALATION ×4 (01:58→22:15)
[2021-06-06] MEDS: IPRATROPIUM BR 0.02% INH SOLN 0.5 MG/2.5 ML VIAL INHALATION ×4 (01:58→22:16)
[2021-06-06] MEDS: LEVOTHYROXINE SODIUM 150 MCG TABLET PO (05:44)
--- NOTE | 2021-06-06 08:03 | P.PNNP_ITS ---
Progress Note: A&P Assessment and Plan (1) Abnormal results of kidney function studies: Code(s): R94.4 - Abnormal results of kidney function studies Status: Acute Assessment and Plan: * unclear what her baseline creatinine is * apparently had a bout of JESSICA/ARF in 2007 and was following with Dr. Ron but has not seen him recently due to COVID pandemic * creatinine in October 2020 was 1.8mg/dl * evaluation to date: * smallish kidneys by renal ultrasound * urine electrolytes are not prerenal * normal CPK * Most likely due to interstitial nephritis. * Creatinine is pending (2) Anemia: Code(s): D64.9 - Anemia, unspecified Status: Acute Assessment and Plan: * Hemoglobin 10.2. (3) Hypokalemia: Code(s): E87.6 - Hypokalemia Status: Resolved Assessment and Plan: * resolved/corrected (4) Acute UTI: Code(s): N39.0 - Urinary tract infection, site not specified Status: Acute Assessment and Plan: * urine culture with E.coli * s/p IV rocephin and imipenem * blood culture negative (5) Gout: Code(s): M10.9 - Gout, unspecified Status: Acute Assessment and Plan: * no symptoms at this time * on allopurinol Will continue to follow. Subjective Date/time seen: 06/06/21 08:03 Interval history: Patient feels okay. Itching is almost gone. She is weak. Exam Narrative: General: WD/WN female in NAD Heart: normal S1 and S2; no rub or gallop Lungs: decreased breath sounds at bases Abdomen: soft, nontender, nondistended, positive bowel sounds Extremities: 1+ edema Skin: Expected superficial desquamation. Objective Data Vital Signs Vital Signs: Vital Signs - 24 hr 06/05/21 09:00 06/05/21 09:08 06/05/21 09:14 Temperature Pulse Rate 90 Respiratory Rate 18 Blood Pressure Pulse Oximetry 94 95 06/05/21 09:15 06/05/21 14:00 06/05/21 15:31 Temperature 37.4 C Pulse Rate 93 98 89 Respiratory Rate 20 20 20 Blood Pressure 144/67 H Pulse Oximetry 93 06/05/21 19:59 06/05/21 20:00 06/05/21 22:00 Temperature 36.1 C L Pulse Rate 92 96 Respiratory Rate 20 20 Blood Pressure 155/77 H Pulse Oximetry 95 90 06/06/21 01:57 06/06/21 06:00 Temperature 35.9 C L Pulse Rate 88 92 Respiratory Rate 20 20 Blood Pressure 146/83 H Pulse Oximetry 94 Intake/Output Intake/Output: Intake & Output 06/03/21 06/04/21 06/05/21 06/06/21 23:59 23:59 23:59 23:59 Intake Total 925 009 6223 300 Output Total 1350 1400 1400 1000 Balance -820 -670 620 -700 Meds/Results Medications: Active Medications Generic Name Dose Route Start Last Admin Trade Name Freq PRN Reason Stop Dose Admin Acetaminophen 650 mg 05/22/21 08:43 Acetaminophen 325 Mg Tablet PO Q4H PRN Pain (Scale Score 1-3) Acetaminophen/Codeine Phosphate 1 tab 05/22/21 11:15 06/04/21 23:19 Acetaminophen/Codeine (*Crx) 300/30 Mg Tablet PO 1 tab TID PRN Administration Pain (S
--- NOTE | 2021-06-06 08:03 | PM.PNNEP ---
Progress Note: A&P Assessment and Plan (1) Abnormal results of kidney function studies: Code(s): R94.4 - Abnormal results of kidney function studies Status: Acute Assessment and Plan: unclear what her baseline creatinine is apparently had a bout of JESSICA/ARF in 2007 and was following with Dr. Ron but has not seen him recently due to COVID pandemic creatinine in October 2020 was 1.8mg/dl evaluation to date: smallish kidneys by renal ultrasound urine electrolytes are not prerenal normal CPK Most likely due to interstitial nephritis. Creatinine is pending (2) Anemia: Code(s): D64.9 - Anemia, unspecified Status: Acute Assessment and Plan: Hemoglobin 10.2. (3) Hypokalemia: Code(s): E87.6 - Hypokalemia Status: Resolved Assessment and Plan: resolved/corrected (4) Acute UTI: Code(s): N39.0 - Urinary tract infection, site not specified Status: Acute Assessment and Plan: urine culture with E.coli s/p IV rocephin and imipenem blood culture negative (5) Gout: Code(s): M10.9 - Gout, unspecified Status: Acute Assessment and Plan: no symptoms at this time on allopurinol Will continue to follow. Subjective Date/time seen: 06/06/21 08:03 Interval history: Patient feels okay. Itching is almost gone. She is weak. Exam Narrative: General: WD/WN female in NAD Heart: normal S1 and S2; no rub or gallop Lungs: decreased breath sounds at bases Abdomen: soft, nontender, nondistended, positive bowel sounds Extremities: 1+ edema Skin: Expected superficial desquamation. Objective Data Vital Signs Vital Signs: Vital Signs - 24 hr 06/05/21 09:00 06/05/21 09:08 06/05/21 09:14 Temperature Pulse Rate 90 Respiratory Rate 18 Blood Pressure Pulse Oximetry 94 95 06/05/21 09:15 06/05/21 14:00 06/05/21 15:31 Temperature 37.4 C Pulse Rate 93 98 89 Respiratory Rate 20 20 20 Blood Pressure 144/67 H Pulse Oximetry 93 06/05/21 19:59 06/05/21 20:00 06/05/21 22:00 Temperature 36.1 C L Pulse Rate 92 96 Respiratory Rate 20 20 Blood Pressure 155/77 H Pulse Oximetry 95 90 01/30/22 01:57 06/06/21 06:00 Temperature 35.9 C L Pulse Rate 88 92 Respiratory Rate 20 20 Blood Pressure 146/83 H Pulse Oximetry 94 Intake/Output Intake/Output: Intake & Output 06/03/21 06/04/21 06/05/21 06/06/21 23:59 23:59 23:59 23:59 Intake Total 213 234 2252 300 Output Total 1350 1400 1400 1000 Balance -820 -670 620 -700 Meds/Results Medications: Active Medications Generic Name Dose Route Start Last Admin Trade Name Freq PRN Reason Stop Dose Admin Acetaminophen 650 mg 05/22/21 08:43 Acetaminophen 325 Mg Tablet PO Q4H PRN Pain (Scale Score 1-3) Acetaminophen/Codeine Phosphate 1 tab 05/22/21 11:15 06/04/21 23:19 Acetaminophen/Codeine (*Crx) 300/30 Mg Tablet PO 1 tab TID PRN Administration Pain (Scale Score 4-6) Albuterol 2.5 mg 05/22/21 14:00 06/06/21 01:58 Albuterol Sulfate Neb 2.5 Mg/0.5 Ml Inh INHALATION 2.5 mg Q6HRT MARIBELL Administration Allopurinol 100 mg 05/22/21 09:00 06/05/21 08:36 Allopurinol 100 Mg Tablet PO 100 mg DAILY MARIBELL Administration Artificial Tears 1 drop 05/22/21 09:11 Artificial Tears Ophth Soln 15 Ml Bottle EACH EYE TID PRN Dry Eyes Baclofen 5 mg 05/27/21 09:00 06/05/21 08:36 Baclofen 5 Mg Tablet PO 5 mg DAILY MARIBELL Administration Calcitriol 0.25 mcg 05/22/21 09:00 06/05/21 08:36 Calcitriol 0.25 Mcg Capsule PO 0.25 mcg DAILY MARIBELL Administration Dextrose 12.5 gm 05/22/21 08:48 Dextrose 50% 25 Gm/50 Ml Syringe IV PUSH PRN PRN Hypoglycemia Protocol Dextrose 12.5 gm 06/01/21 13:01 Dextrose 50% 25 Gm/50 Ml Syringe IV PUSH PRN PRN Hypoglycemia Protocol Duloxetine HCl 30 mg 05/22/21 09:00 06/05/21 08:37
[2021-06-06 08:30] LABS: Hematocrit 34.9 % (37.0-47.0); Hemoglobin 10.5 g/dL (12.0-15.0); Mean Corpuscular HGB Conc 30.1 g/dl (32-36); Mean Corpuscular Hemoglobin 29.4 pg (26-34); Mean Corpuscular Volume 97.8 fl (80-100); Mean Platelet Volume 11.4 fl (7.4-10.4); Platelet Count Result 191 k/mm3 (150-375); Red Blood Count 3.57 M/mm3 (4.2-5.4); Red Cell Distribution Width 15.4 % (11.5-14.5); White Blood Count 20.1 K/mm3 (4.5-10.0)
[2021-06-06 08:39] LABS: Anion Gap 1 mmol/L (8-16); Blood Urea Nitrogen 46 mg/dL (7-17); Carbon Dioxide 35 mmol/L (22-30); Chloride 101 mmol/L (98-107); Estimated Glomerular Filt Rate 30; Glucose 81 mg/dL (65-110); Sodium 137 mmol/L (137-145)
[2021-06-06] MEDS: FLUTICASONE/SALMETEROL 115-21 MCG INHALER 1 PUFF 2 PUFF INHALATION ×2 (09:17→22:16)
[2021-06-06] MEDS: allopurinoL 100 MG TABLET PO (09:38)
[2021-06-06] MEDS: DULoxetine HCL 30 MG CAPSULE.DR PO (09:38)
[2021-06-06] MEDS: EUCERIN CREAM 454 GM JAR 1 APPLIC TOPICAL ×2 (09:38→20:38)
[2021-06-06] MEDS: FAMOTIDINE 20 MG/2 ML VIAL IV PUSH ×2 (09:38→20:38)
[2021-06-06] MEDS: BACLOFEN 5 MG TABLET PO (09:38)
[2021-06-06] MEDS: predniSONE 10 MG TABLET 20 MG PO (09:38)
[2021-06-06] MEDS: MULTIVITAMINS THERAPEUTIC TAB (*BKC) 1 TABLET PO (09:38)
[2021-06-06] MEDS: TOLNAFTATE 1% POWDER 45 GM BTL 1 APPLIC TOPICAL ×2 (09:38→20:39)
[2021-06-06] MEDS: calcitrioL 0.25 MCG CAPSULE PO (09:38)
[2021-06-06] MEDS: guaiFENesin 12 HR 600 MG TABCR PO (09:38)
[2021-06-06] MEDS: MICONAZOLE NITRATE 2% CREAM 30 GM TUBE 1 APPLIC TOPICAL ×2 (09:39→20:39)
--- NOTE | 2021-06-06 11:41 | PM.IMPN ---
Progress Note: A&P Assessment and Plan (1) Acute generalized exanthematous pustulosis due to drug: Code(s): L27.0 - Generalized skin eruption due to drugs and medicaments taken internally; T50.905A - Adverse effect of unspecified drugs, medicaments and biological substances, initial encounter Status: Acute Assessment and Plan: Resolving rash, with diffuse desquamative rash revealing healthy underlying skin. May use Selsun shampoo was needed. Patient developed an acute erythematous rash with numerous pustules in the setting of edematous painful erythema. She was febrile with significant leukocytosis, mild leucocytosis after being started on antibiotics. Both penicillin and azithromycin have been stopped as potential drug culprit. Due to complaints of tongue swelling, and concern for airway compromise, she was started on H1 blockers, H2 blockers and IV steroids with improvement of her symptoms. Is blockers and IV steroids. Due to witnessed disordered breathing, pulmonary was consulted; appreciate their recommendations. Episode of respiratory distress May 28, 2021. Chest x-ray suggested cardiomegaly with mild pulmonary edema. Patient with worsening renal function. A single dose IV Lasix was given. Exanthem resolving on steroids (2) Acute kidney injury: Code(s): N17.9 - Acute kidney failure, unspecified Status: Acute Assessment and Plan: Recovering acute non oliguric kidney injury in the setting of previously known CKD:, improving with a creatinine of 2.2 today. Baseline creatiine 1.13 October 2020 4.1 on arrival, no prior for comparison. Creatinine continues to improve slowly and is down to 1.7 on 06/05, 1.7 on 06/06 (baseline?) 06/05 output 1400ml, 06/06 1050 ml thus far (3) DVT (deep venous thrombosis): Qualifiers: DVT location: lower extremity Affected thrombotic vein of extremity: femoral Chronicity: acute Laterality: right Qualified Code(s): I82.411 - Acute embolism and thrombosis of right femoral vein Code(s): I82.409 - Acute embolism and thrombosis of unspecified deep veins of unspecified lower extremity Status: Acute Assessment and Plan: venous doppler positive for R femoral nonocclusive DVT 06/06 transition from Lovenox 1 mg/kg q 24 hours to Eliquis 10mg bid (eGRF now 30) (4) Arm weakness: Code(s): R29.898 - Other symptoms and signs involving the musculoskeletal system Status: Acute Assessment and Plan: Generalized weakness, more prominent at the at the shoulder and pelvic girdles, improving. CT brain and cervical spine which showed Severe cervical spondylosis. 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 Age-related intracranial findings. Neurology was consulted. Weakness is improving. Continue PT/OT. (5) Acute UTI: Code(s): N39.0 - Urinary tract infection, site not specified Status: Acute Assessment and Plan: Completed 5 days of IV antibiotic with IV Rocephin #5. Urine culture positive for E. Coli, sensitive to Rocephin -Blood cultures Negative to date Completed 2 days of antibiotics with imipenem. (6) Pneumonia: Qualifiers: Pneumonia type: due to unspecified organism Laterality: unspecified laterality Lung location: unspecified part of lung Qualified Code(s): J18.9 - Pneumonia, unspecified organism Code(s): J18.9 - Pneumonia, unspecified organism Status: Acute Assessment and Plan: -Pt w/ hx of COPD, reports dry cough -CXR w/ atelectasis vs pneumonia -poor insoiratory effort; no wheezing -patient has completed 5 days of ceftriaxone and 4 days of azithromycin. Due to likely allergic reaction, they were both stopped. -continue aggressive nebulization.
[2021-06-06] MEDS: APIXABAN 5 MG TABLET 10 MG PO (20:38)
[2021-06-07] VITALS (10 sets, daily range): BP systolic 142–143; BP diastolic 74–82; PULSE 89–105; RESP 18–21; TEMP 35.7–36.2; O2SAT 90–92
[2021-06-07] MEDS: ALBUTEROL SULFATE NEB 2.5 MG/0.5 ML INH INHALATION ×3 (03:46→14:13)
[2021-06-07] MEDS: IPRATROPIUM BR 0.02% INH SOLN 0.5 MG/2.5 ML VIAL INHALATION ×3 (03:46→14:13)
[2021-06-07] MEDS: LEVOTHYROXINE SODIUM 150 MCG TABLET PO (06:06)
[2021-06-07 07:21] LABS: Basophils Absolute Auto 0.1 K/mm3 (0.0-0.1); Basophils Percent Auto 0.4 % (0.2-1.2); Eosinophils Absolute Auto 0.2 K/mm3 (0-0.3); Eosinophils Percent Auto 1.3 % (0-4.4); Hematocrit 35.3 % (37.0-47.0); Hemoglobin 10.6 g/dL (12.0-15.0); Immature Granulocyte Percent A 2.2 % (0-0.5); Lymphocytes Absolute Auto 1.88 K/mm3 (0.9-3.2); Mean Corpuscular Hemoglobin 29.3 pg (26-34); Mean Corpuscular Volume 97.5 fl (80-100); Mean Platelet Volume 10.5 fl (7.4-10.4); Monocytes Absolute Auto 0.8 K/mm3 (0.1-0.6); Monocytes Percent Auto 6.2 % (2.6-8.5); Neutrophils Absolute Auto 10.2 K/mm3 (1.3-6.7); Neutrophils Percent Auto 75.9 % (45.5-73.1); Platelet Count Result 205 k/mm3 (150-375); Red Blood Count 3.62 M/mm3 (4.2-5.4); Red Cell Distribution Width 14.9 % (11.5-14.5); White Blood Count 13.5 K/mm3 (4.5-10.0)
[2021-06-07 07:34] LABS: Anion Gap -1 mmol/L (8-16); Blood Urea Nitrogen 46 mg/dL (7-17); Calcium 8.9 mg/dL (8.4-10.2); Carbon Dioxide 34 mmol/L (22-30); Chloride 101 mmol/L (98-107); Estimated Glomerular Filt Rate 30; Glucose 118 mg/dL (65-110); Potassium 4.3 mmol/L (3.4-5.0); Sodium 134 mmol/L (137-145)
[2021-06-07 07:50] LABS: Glucose Point of Care 121 mg/dl (65-105)
[2021-06-07] MEDS: MULTIVITAMINS THERAPEUTIC TAB (*BKC) 1 TABLET PO (07:56)
[2021-06-07] MEDS: predniSONE 10 MG TABLET 20 MG PO (07:56)
[2021-06-07] MEDS: allopurinoL 100 MG TABLET PO (07:57)
[2021-06-07] MEDS: calcitrioL 0.25 MCG CAPSULE PO (07:57)
[2021-06-07] MEDS: FAMOTIDINE 20 MG/2 ML VIAL IV PUSH (07:57)
[2021-06-07] MEDS: APIXABAN 5 MG TABLET 10 MG PO (07:57)
[2021-06-07] MEDS: DULoxetine HCL 30 MG CAPSULE.DR PO (07:57)
[2021-06-07] MEDS: TOLNAFTATE 1% POWDER 45 GM BTL 1 APPLIC TOPICAL (07:58)
[2021-06-07] MEDS: EUCERIN CREAM 454 GM JAR 1 APPLIC TOPICAL (07:58)
[2021-06-07] MEDS: MICONAZOLE NITRATE 2% CREAM 30 GM TUBE 1 APPLIC TOPICAL (07:59)
[2021-06-07] MEDS: FLUTICASONE/SALMETEROL 115-21 MCG INHALER 1 PUFF 2 PUFF INHALATION (08:38)
--- NOTE | 2021-06-07 09:45 | P.PNNP_ITS ---
Progress Note: A&P Assessment and Plan (1) Abnormal results of kidney function studies: Code(s): R94.4 - Abnormal results of kidney function studies Status: Acute Assessment and Plan: * unclear what her baseline creatinine is * apparently had a bout of JESSICA/ARF in 2007 and was following [address] Dr[address] Ron but has not seen him recently due to COVID pandemic * creatinine in October 2020 was 1.8mg/dl * evaluation to date: * smallish kidneys by renal ultrasound * urine electrolytes are not prerenal * normal CPK * Most likely due to interstitial nephritis. * Creatinine seems to have stabilized at 1.7 which is about her baseline. (2) Anemia: Code(s): D64.9 - Anemia, unspecified Status: Acute Assessment and Plan: * Hemoglobin 10.2. (3) Hypokalemia: Code(s): E87.6 - Hypokalemia Status: Resolved Assessment and Plan: * resolved/corrected (4) Acute UTI: Code(s): N39.0 - Urinary tract infection, site not specified Status: Acute Assessment and Plan: * urine culture with E.coli * Finished her course of antibiotics. * blood culture negative (5) Gout: Code(s): M10.9 - Gout, unspecified Status: Acute Assessment and Plan: * no symptoms at this time * on allopurinol Will continue to follow. Subjective Date/time seen: 06/07/21 09:45 Interval history: Patient feels okay.Sleepy. Itching is just about gone She is weak. Exam Narrative: General: WD/WN female in NAD Heart: regular rate and rhythm. No rub or gallop. Lungs: decreased breath sounds at bases Abdomen: soft, nontender, nondistended, positive bowel sounds Extremities: 1+ edema Or cyanosis Skin: Expected superficial desquamation. Objective Data Vital Signs Vital Signs: Vital Signs - 24 hr 06/06/21 13:40 06/06/21 14:00 06/06/21 20:00 Temperature 36.8 C Pulse Rate 89 92 92 Respiratory Rate 20 20 20 Blood Pressure 150/88 H Pulse Oximetry 91 91 06/06/21 22:00 06/06/21 22:10 06/06/21 22:17 Temperature 35.8 C L Pulse Rate 92 88 90 Respiratory Rate 16 21 H 20 Blood Pressure 142/82 H Pulse Oximetry 90 06/07/21 03:47 06/07/21 03:52 06/07/21 04:40 Temperature Pulse Rate 89 91 Respiratory Rate 18 20 Blood Pressure Pulse Oximetry 92 06/07/21 05:11 06/07/21 08:38 06/07/21 08:46 Temperature 35.7 C L Pulse Rate 91 94 91 Respiratory Rate 18 18 20 Blood Pressure 142/82 H Pulse Oximetry 91 Intake/Output Intake/Output: Intake & Output 06/04/21 06/05/21 06/06/21 06/07/21 23:59 23:59 23:59 23:59 Intake Total 730 2020 540 50 Output Total 1400 1400 1700 400 Balance -670 620 -1160 -350 Meds/Results Medications: Active Medications Generic Name Dose Route Start Last Admin Trade Name Freq PRN Reason Stop Dose Admin Acetaminophen 650 mg 05/22/21 08:43 Acetaminophen 325 Mg Tablet PO Q4H PRN Pain (Scale Score 1-3) Acetaminophen/Codeine Phosphate 1 tab 05/22/21 11:15 06/04/21 23:19
--- NOTE | 2021-06-07 09:45 | PM.PNNEP ---
Progress Note: A&P Assessment and Plan (1) Abnormal results of kidney function studies: Code(s): R94.4 - Abnormal results of kidney function studies Status: Acute Assessment and Plan: unclear what her baseline creatinine is apparently had a bout of JESSICA/ARF in 2007 and was following with Dr[address] Ron but has not seen him recently due to COVID pandemic creatinine in October 2020 was 1.8mg/dl evaluation to date: smallish kidneys by renal ultrasound urine electrolytes are not prerenal normal CPK Most likely due to interstitial nephritis. Creatinine seems to have stabilized at 1.7 which is about her baseline. (2) Anemia: Code(s): D64.9 - Anemia, unspecified Status: Acute Assessment and Plan: Hemoglobin 10.2. (3) Hypokalemia: Code(s): E87.6 - Hypokalemia Status: Resolved Assessment and Plan: resolved/corrected (4) Acute UTI: Code(s): N39.0 - Urinary tract infection, site not specified Status: Acute Assessment and Plan: urine culture with E.coli Finished her course of antibiotics. blood culture negative (5) Gout: Code(s): M10.9 - Gout, unspecified Status: Acute Assessment and Plan: no symptoms at this time on allopurinol Will continue to follow. Subjective Date/time seen: 06/07/21 09:45 Interval history: Patient feels okay.Sleepy. Itching is just about gone She is weak. Exam Narrative: General: WD/WN female in NAD Heart: regular rate and rhythm. No rub or gallop. Lungs: decreased breath sounds at bases Abdomen: soft, nontender, nondistended, positive bowel sounds Extremities: 1+ edema Or cyanosis Skin: Expected superficial desquamation. Objective Data Vital Signs Vital Signs: Vital Signs - 24 hr 06/06/21 13:40 06/06/21 14:00 06/06/21 20:00 Temperature 36.8 C Pulse Rate 89 92 92 Respiratory Rate 20 20 20 Blood Pressure 150/88 H Pulse Oximetry 91 91 06/06/21 22:00 06/06/21 22:10 06/06/21 22:17 Temperature 35.8 C L Pulse Rate 92 88 90 Respiratory Rate 16 21 H 20 Blood Pressure 142/82 H Pulse Oximetry 90 06/07/21 03:47 06/07/21 03:52 06/07/21 04:40 Temperature Pulse Rate 89 91 Respiratory Rate 18 20 Blood Pressure Pulse Oximetry 92 06/07/21 05:11 06/07/21 08:38 06/07/21 08:46 Temperature 35.7 C L Pulse Rate 91 94 91 Respiratory Rate 18 18 20 Blood Pressure 142/82 H Pulse Oximetry 91 Intake/Output Intake/Output: Intake & Output 06/04/21 06/05/21 06/06/21 06/07/21 23:59 23:59 23:59 23:59 Intake Total 730 2020 540 50 Output Total 1400 1400 1700 400 Balance -670 620 -1160 -350 Meds/Results Medications: Active Medications Generic Name Dose Route Start Last Admin Trade Name Freq PRN Reason Stop Dose Admin Acetaminophen 650 mg 05/22/21 08:43 Acetaminophen 325 Mg Tablet PO Q4H PRN Pain (Scale Score 1-3) Acetaminophen/Codeine Phosphate 1 tab 05/22/21 11:15 06/04/21 23:19 Acetaminophen/Codeine (*Crx) 300/30 Mg Tablet PO 1 tab TID PRN Administration Pain (Scale Score 4-6) Albuterol 2.5 mg 05/22/21 14:00 06/07/21 08:38 Albuterol Sulfate Neb 2.5 Mg/0.5 Ml Inh INHALATION 2.5 mg Q6HRT MARIBELL Administration Allopurinol 100 mg 05/22/21 09:00 06/07/21 07:57 Allopurinol 100 Mg Tablet PO 100 mg DAILY MARIBELL Administration Apixaban 10 mg 06/06/21 21:00 06/07/21 07:57 Apixaban 5 Mg Tablet PO 10 mg Q12HR MARIBELL Administration Artificial Tears 1 drop 05/22/21 09:11 Artificial Tears Ophth Soln 15 Ml Bottle EACH EYE TID PRN Dry Eyes Calcitriol 0.25 mcg 05/22/21 09:00 06/07/21 07:57 Calcitriol 0.25 Mcg Capsule PO 0.25 mcg DAILY MARIBELL Administration Dextrose 12.5 gm 06/01/21 13:01 Dextrose 50% 25 Gm/50 Ml Syringe IV PUSH PRN PRN Hypoglycemia Protocol Duloxetine HCl 30 mg 05/22/21 09:00 06/07/21 07:57 D
[2021-06-07 11:30] LABS: Glucose Point of Care 138 mg/dl (65-105)
[2021-06-07 15:53] LABS: EDCOVIDSCREEN Negative (Negative)
[2021-06-07 16:01] LABS: Glucose Point of Care 218 mg/dl (65-105)
--- NOTE | 2021-06-07 16:37 | PM.DS ---
DS: Admitting Diagnosis Discharge Date 06/07/21 Admitting Diagnosis (1) Acute UTI: Code(s): N39.0 - Urinary tract infection, site not specified Status: Acute Assessment and Plan: IV antibiotics urine culture. (2) Acute kidney injury: Code(s): N17.9 - Acute kidney failure, unspecified Status: Acute Assessment and Plan: Give IV fluids and monitor closely. Nephrology consult heartbeat (3) Leukocytosis: Qualifiers: Leukocytosis type: unspecified Qualified Code(s): D72.829 - Elevated white blood cell count, unspecified Code(s): D72.829 - Elevated white blood cell count, unspecified Status: Acute Assessment and Plan: Trending down with antibiotics, will continue monitor. (4) Abrasion of vagina: Qualifiers: Encounter type: initial encounter Qualified Code(s): S30.814A - Abrasion of vagina and vulva, initial encounter Code(s): S30.814A - Abrasion of vagina and vulva, initial encounter Status: Acute Assessment and Plan: Patient has appointment to see OB Gyne as an outpatient. Will continue to monitor. (5) Hypothyroid: Code(s): E03.9 - Hypothyroidism, unspecified Status: Acute Assessment and Plan: Stable on current medication. (6) Gout: Code(s): M10.9 - Gout, unspecified Status: Acute (7) Hypokalemia: Code(s): E87.6 - Hypokalemia Status: Acute Assessment and Plan: Replace and monitor. (8) Elevated blood sugar: Code(s): R73.9 - Hyperglycemia, unspecified Status: Acute Assessment and Plan: DS: Discharge Diagnosis Discharge Diagnosis (1) Acute generalized exanthematous pustulosis due to drug: Code(s): L27.0 - Generalized skin eruption due to drugs and medicaments taken internally; T50.905A - Adverse effect of unspecified drugs, medicaments and biological substances, initial encounter Status: Acute (2) Fatigue: Qualifiers: Fatigue type: unspecified Qualified Code(s): R53.83 - Other fatigue Code(s): R53.83 - Other fatigue Status: Acute (3) Arm weakness: Code(s): R29.898 - Other symptoms and signs involving the musculoskeletal system Status: Acute (4) DVT (deep venous thrombosis): Qualifiers: DVT location: lower extremity Affected thrombotic vein of extremity: femoral Chronicity: acute Laterality: right Qualified Code(s): I82.411 - Acute embolism and thrombosis of right femoral vein Code(s): I82.409 - Acute embolism and thrombosis of unspecified deep veins of unspecified lower extremity Status: Acute (5) Chronic edema: Code(s): R60.9 - Edema, unspecified Status: Acute (6) Pneumonia: Qualifiers: Pneumonia type: due to unspecified organism Laterality: unspecified laterality Lung location: unspecified part of lung Qualified Code(s): J18.9 - Pneumonia, unspecified organism Code(s): J18.9 - Pneumonia, unspecified organism Status: Acute (7) Abnormal results of kidney function studies: Code(s): R94.4 - Abnormal results of kidney function studies Status: Acute (8) Anemia: Code(s): D64.9 - Anemia, unspecified Status: Acute (9) Elevated blood sugar: Code(s): R73.9 - Hyperglycemia, unspecified Status: Acute (10) Hypokalemia: Code(s): E87.6 - Hypokalemia Status: Resolved (11) Hypothyroid: Code(s): E03.9 - Hypothyroidism, unspecified Status: Acute (12) Gout: Code(s): M10.9 - Gout, unspecified Status: Acute (13) Abrasion of vagina: Qualifiers: Encounter type: initial encounter Qualified Code(s): S30.814A - Abrasion of vagina and vulva, initial encounter Code(s): S30.814A - Abrasion of vagina and vulva, initial encounter Status: Acute (14) Acute UTI: Code(s): N39.0 - Urinary tract infection, site not specified Status: Acute (15)
== END 2021-06-07 18:35 | DRG 463 ==
LOC: ANHED 22:47 → ANH2MED 05-22 01:56 → ANHIMU 05-26 10:38 → ANH3MEDSUR 05-27 14:40
PROVIDERS: Internal Medicine; Internal Medicine Nephrology; Nurse Practitioner; Physician Assistant; Admitting Provider Internal Medicine; Emergency Provider Emergency Medicine; PCP Internal Medicine; Visit Provider Hospitalist
DX: N39.0 Urinary tract infection, site not specified (principal); E66.01 Morbid (severe) obesity due to excess calories; E87.2 Acidosis; N17.9 Acute kidney failure, unspecified; B96.20 Unspecified Escherichia coli [E. coli] as the cause of diseases classified elsewhere; Z20.822 Contact with and (suspected) exposure to COVID-19; D72.829 Elevated white blood cell count, unspecified; S30.814A Abrasion of vagina and vulva, initial encounter; K14.8 Other diseases of tongue; I82.411 Acute embolism and thrombosis of right femoral vein; L27.0 Generalized skin eruption due to drugs and medicaments taken internally; T36.95XA Adverse effect of unspecified systemic antibiotic, initial encounter; R29.898 Other symptoms and signs involving the musculoskeletal system; J96.11 Chronic respiratory failure with hypoxia; J18.9 Pneumonia, unspecified organism; R53.83 Other fatigue; J44.0 Chronic obstructive pulmonary disease with (acute) lower respiratory infection; E03.9 Hypothyroidism, unspecified; M10.9 Gout, unspecified; E87.6 Hypokalemia; R94.4 Abnormal results of kidney function studies; Z68.42 Body mass index [BMI] 45.0-49.9, adult; E87.8 Other disorders of electrolyte and fluid balance, not elsewhere classified; M48.00 Spinal stenosis, site unspecified; R73.9 Hyperglycemia, unspecified; D64.9 Anemia, unspecified; I12.9 Hypertensive chronic kidney disease with stage 1 through stage 4 chronic kidney disease, or unspecified chronic kidney disease; N18.9 Chronic kidney disease, unspecified; N25.0 Renal osteodystrophy; F32.A Depression, unspecified; R60.9 Edema, unspecified; Z74.01 Bed confinement status; Z79.899 Other long term (current) drug therapy; Z87.891 Personal history of nicotine dependence; Z88.2 Allergy status to sulfonamides
CPT/HCPCS: 36415; 36600; 51701; 70450; 71045; 71250; 72125; 72141; 74176; 76770; 80048; 80053; 80069; 81001; 82375; 82550; 82570; 82728; 82805; 82948; 83036; 83050; 83605; 83615; 84100; 84156; 84300; 84443; 85025; 85027; 85610; 85730; 86038; 86140; 87040; 87077; 87086; 87088; 87186; 87426; 92610; 93005; 93970; 94003; 94640; 96361; 96365; 96372; 96375; 99285; A9270; C9803; G0378; G0379; J0456; J0696; J0743; J1200; J1644; J1650; J1815; J1940; J2270; J2405; J2920; J2930; J7030; J7512